=== PATIENT | female | born 1945 | race Caucasian/White ===

== ENCOUNTER 2017-02-23 13:16 | Emergency (ER) | payer MEDICARE, MEDICAID ==
[2017-02-23 13:22] VITALS: BP 141/68
--- NOTE | 2017-02-23 14:21 | ED ---
Lower Extremity - HPI Summary HPI Summary: Patient presents with left inner thigh pain x 4 days after stretching in the shower, denies redness and swelling. She has never had this before. Pain is 7/ 10, constant and worse with standing. Denies lower leg pain, SOB, chest pain or other symptoms. Patient is a smoker, denies recent travel and denies previous DVT. - History of Current Complaint Chief Complaint: EDExtremityLower Stated Complaint: LT LEG PAIN Time Seen by Provider: 02/23/17 13:26 Hx Obtained From: Patient Mechanism Of Injury: Unknown - strained muscle Onset of Pain: Days Onset/Duration: Days Severity Initially: Mild Severity Currently: Mild Pain Intensity: 7 Pain Scale Used: 0-10 Numeric Timing: Constant Location: Is Discrete @ - left inner thigh Character Of Pain: Throbbing, Spasmodic Associated Signs And Symptoms: Positive: Negative Aggravating Factor(s): Ambulation Alleviating Factor(s): Rest Able to Bear Weight: No - Risk Factors Gout Risk Factors: Age Over 40 DVT Risk Factors: Negative Septic Arthritis Risk Factor: Negative - Allergies/Home Medications Allergies/Adverse Reactions: Allergies Allergy/AdvReac Type Severity Reaction Status Date / Time codeine together with Allergy Severe Altered Uncoded 07/21/15 18:42 clonipin Mental Status PMH/Surg Hx/FS Hx/Imm Hx Previously Healthy: Yes Endocrine/Hematology History: Denies: Hx Diabetes, Hx Thyroid Disease Cardiovascular History: Denies: Hx Hypertension, Hx Pacemaker/ICD Respiratory History: Reports: Hx Asthma - COPD, Hx Chronic Obstructive Pulmonary Disease (COPD) GI History: Denies: Hx Ulcer History: Denies: Hx Renal Disease Musculoskeletal History: Denies: Hx Rheumatoid Arthritis, Hx Osteoporosis Neurological History: Denies: Hx Seizures Psychiatric History: Denies: Hx Substance Abuse - Surgical History Surgery Procedure, Year, and Place: Foot surgery for bunions x2, breast cyst removed benign, cataract surgery x2,2 knee surgeries for dislocated knee cap - Immunization History Hx Pertussis Vaccination: No Immunizations Up to Date: Unable to Obtain/Confirm Infectious Disease History: Denies: Hx Clostridium Difficile, Hx Hepatitis, Hx Human Immunodeficiency Virus (HIV), Hx of Known/Suspected MRSA, Hx Shingles, Hx Tuberculosis, Hx Known/ Suspected VRE, Hx Known/Suspected VRSA, History Other Infectious Disease, Traveled Outside the [place] in Last 30 Days - Social History Occupation: Employed Full-time Lives: With Family Alcohol Use: Occasionally Hx Substance Use: No Substance Use Type: Reports: None Hx Tobacco Use: Yes Smoking Status (MU): Heavy Every Day Tobacco Smoker Type: Cigarettes Amount Used/How Often: 1 PPD Have You Smoked in the Last Year: Yes Review of Systems Constitutional: Negative Eyes: Negative Respiratory: Negative Gastrointestinal: Negative Positive: no symptoms reported, see HPI Positive: Myalgia Skin: Negative Neurological: Negative Psychological: Normal All Other Systems Reviewed And Are Negative: Yes Physical Exam Triage Information Reviewed: Yes Vital Signs On Initial Exam: Initial Vitals Temp Pulse Resp BP Pulse Ox 96.8 F 78 17 141/68 96 02/23/17 13:19 02/23/17 13:19 02/23/17 13:19 02/23/17 13:19 02/23/17 13:19 Vital Signs Reviewed: Yes Appearance: Positive: Well-Appearing, Well-Nourished Skin: Positive: Warm, Skin Color Reflects Adequate Perfusion Head/Face: Positive: Normal Head/Face Inspection Eyes: Positive: Normal, DOROTHY, Conjunctiva Clear Neck: Positive: Supple, Nontender, No Lymphadenopathy Respiratory/Lung Sounds: Positive: Clear to Auscultation, Breath Sounds Present Cardiovascular: Positive: Normal, RRR Musculoskeletal: Positive: Pain @ - left inner thigh Neurological: Positive: Sensory/Motor Intact, Alert, Oriented to Person Place, Time, Speech Normal Psychiatric: Positive: Normal AVPU Assessment: Alert Diagnostics - Vital Signs Vital Signs Temp Pulse Resp BP Pulse Ox 02/23/17 13:19 96.8 F 78 17 141/68 96 - Laboratory Lab Statement: Any lab studies that have been ordered have been reviewed, and results considered in the medical decision making process. Lower Extremity Course/Dx - Course Course Of Treatment: Patient with left inner thigh muscle strain after pulling it in shower x 4 days ago. Ibuprofen without relief. Requesting muscle relaxer. Encouraged moist heat, ibuprofen and given flexeril as rx. Medications were reveiwed with patient. Encouarged to follow up with PCP or return to ED for worsening symptoms. Return precautions given. Patient understands and agrees with plan. Ok for discharge. - Diagnoses Differential Diagnosis/HQI/PQRI: Positive: Contusion, Sprain, Strain, Tendonitis Provider Diagnoses: Muscle strain Discharge - Discharge Plan Condition: Stable Disposition: HOME Prescriptions: Cyclobenzaprine TAB* [Flexeril TAB*] 10 mg PO BID PRN #10 tab MDD 2 PRN Reason: Pain Ibuprofen 600 MG #6 TAB PREPAK 600 mg PO TID PRN #30 tab MDD 3 PRN Reason: Pain Patient Education Materials: Muscle Strain (ED) Referrals: Jordon Joseph MD [Primary Care Provider] - Additional Instructions: Ibuprofen 600mg three times daily Flexeril as needed for muscle pain - do not drive with this medication Moist heat to the area several times per day
== END 2017-02-23 14:19 | disposition home or self-care (01) ==
LOC: ED 13:16
DX: S76.912A Strain of unspecified muscles, fascia and tendons at thigh level, left thigh, initial encounter (principal); X58.XXXA Exposure to other specified factors, initial encounter; Y93.E1 Activity, personal bathing and showering; Y92.002 Bathroom of unspecified non-institutional (private) residence as the place of occurrence of the external cause; J44.9 Chronic obstructive pulmonary disease, unspecified; F17.210 Nicotine dependence, cigarettes, uncomplicated
CPT/HCPCS: 99281

== ENCOUNTER 2017-03-09 01:34 | Emergency (ER) | payer MEDICARE, MEDICAID ==
--- NOTE | 2017-03-09 02:42 | ED ---
Edward Perea Alok, scribed for Luis Scherer MD on 03/09/17 at 0216 . Lower Extremity - HPI Summary HPI Summary: 71F presents to the ED with left leg pain with swelling at the knee. Pt states that 3 weeks go she tripped and fell, but has been experiencing pain just today prompting her visit to the ED. Pt states she last took OTC medications 4 hours ago. - History of Current Complaint Chief Complaint: EDExtremityLower Stated Complaint: LEG INJURY Time Seen by Provider: 03/09/17 02:05 Hx Obtained From: Patient Mechanism Of Injury: Fall From A Standing Position Onset of Pain: Days Onset/Duration: Weeks Severity Initially: Moderate Severity Currently: Moderate Pain Intensity: 8 Pain Scale Used: 0-10 Numeric Timing: Constant Location: Is Discrete @ - left leg Associated Signs And Symptoms: Positive: Swelling Aggravating Factor(s): Weight Bearing Alleviating Factor(s): OTC Meds - Allergies/Home Medications Allergies/Adverse Reactions: Allergies Allergy/AdvReac Type Severity Reaction Status Date / Time codeine together with Allergy Severe Altered Uncoded 07/21/15 18:42 clonipin Mental Status PMH/Surg Hx/FS Hx/Imm Hx Endocrine/Hematology History: Denies: Hx Diabetes, Hx Thyroid Disease Cardiovascular History: Denies: Hx Hypertension, Hx Pacemaker/ICD Respiratory History: Reports: Hx Asthma - COPD, Hx Chronic Obstructive Pulmonary Disease (COPD) GI History: Denies: Hx Ulcer History: Denies: Hx Renal Disease Musculoskeletal History: Denies: Hx Rheumatoid Arthritis, Hx Osteoporosis Neurological History: Denies: Hx Seizures Psychiatric History: Denies: Hx Substance Abuse - Surgical History Surgery Procedure, Year, and Place: Foot surgery for bunions x2, breast cyst removed benign, cataract surgery x2,2 knee surgeries for dislocated knee cap Infectious Disease History: Denies: Hx Clostridium Difficile, Hx Hepatitis, Hx Human Immunodeficiency Virus (HIV), Hx of Known/Suspected MRSA, Hx Shingles, Hx Tuberculosis, Hx Known/ Suspected VRE, Hx Known/Suspected VRSA, History Other Infectious Disease, Traveled Outside the [place] in Last 30 Days - Family History Known Family History: Positive: Hypertension - Social History Occupation: Retired Lives: With Family Alcohol Use: Occasionally Hx Substance Use: No Substance Use Type: Reports: None Hx Tobacco Use: Yes Smoking Status (MU): Heavy Every Day Tobacco Smoker Type: Cigarettes Amount Used/How Often: 1 PPD Have You Smoked in the Last Year: Yes Review of Systems Negative: Fever Positive: Edema, Other - left leg pain All Other Systems Reviewed And Are Negative: Yes Physical Exam Triage Information Reviewed: Yes Vital Signs On Initial Exam: Initial Vitals Temp Pulse Resp BP Pulse Ox 97.3 F 73 16 176/88 100 03/09/17 01:39 03/09/17 01:39 03/09/17 01:39 03/09/17 01:39 03/09/17 01:39 Vital Signs Reviewed: Yes Appearance: Positive: Well-Appearing, No Pain Distress Skin: Positive: Warm Eyes: Positive: DOROTHY ENT: Positive: Hearing grossly normal Neck: Positive: Supple Respiratory/Lung Sounds: Positive: Breath Sounds Present Musculoskeletal: Positive: Other - mild swelling lt knee from, no deformity Neurological: Positive: Alert, Oriented to Person Place, Time Psychiatric: Positive: Affect/Mood Appropriate Diagnostics - Vital Signs Vital Signs Temp Pulse Resp BP Pulse Ox 03/09/17 01:39 97.3 F 73 16 176/88 100 - Laboratory Lab Statement: Any lab studies that have been ordered have been reviewed, and results considered in the medical decision making process. - Radiology Lower Extremity XRAY Xray Interpretation: No Acute Changes Radiology Interpretation Completed By: ED Physician - Dr. Scherer Femur XRAY Xray Interpretation: No Acute Changes Radiology Interpretation Completed By: ED Physician - Dr. Scherer Re-Evaluation - Re-Evaluation First Eval Change: Improved - results d/w pt Lower Extremity Course/Dx - Diagnoses Provider Diagnoses: Contusion of leg Discharge - Discharge Plan Condition: Stable Disposition: HOME Patient Education Materials: Leg Pain (ED) Referrals: Jordon Joseph MD [Primary Care Provider] - The documentation as recorded by the Edward joshi Alok accurately reflects the service I personally performed and the decisions made by , Luis Scherer MD.
[2017-03-09 03:50] VITALS: BP 201/77
--- NOTE | 2017-03-09 08:05 | RAD ---
Indication: Left leg pain 3 weeks after a fall Comparison: None. Technique: 4 views of the left femur and 2 views of the left lower leg were obtained. Report: There is a lucent line extending from the left greater trochanter inferiorly along the intertrochanteric line. The remainder of the femur is intact and appropriately aligned. There are advanced degenerative changes of the left knee with obliteration of the joint space, bony remodeling and exuberant marginal osteophyte formation. Calcification extends into the joint capsule. The tibia and fibula are cortically intact and appropriately aligned. Incidentally noted is calcified atherosclerosis throughout the length of the superficial femoral artery and overlying the infrapopliteal arteries. IMPRESSION: 1. Nondisplaced left intertrochanteric fracture. 2. Incidentally noted is calcified atherosclerosis of the femoral-popliteal arteries. Please correlate to signs and symptoms of arterial insufficiency.
== END 2017-03-09 03:49 | disposition home or self-care (01) ==
LOC: ED 01:34
DX: S80.12XA Contusion of left lower leg, initial encounter (principal); M79.605 Pain in left leg; F17.210 Nicotine dependence, cigarettes, uncomplicated; W19.XXXA Unspecified fall, initial encounter; Y93.9 Activity, unspecified; Y92.9 Unspecified place or not applicable
CPT/HCPCS: 99282

== ENCOUNTER 2017-03-13 12:20 | Inpatient (IN) | payer MEDICARE, MEDICAID ==
--- NOTE | 2017-03-13 13:01 | ED ---
Lower Extremity - HPI Summary HPI Summary: Patient presents with left hip pain s/p fall 5 days ago. She also notes to a burn on her anterior thigh for which she has placed ice on for too long which had then burned the skin. She also notes to some swelling, and tightness in the lower leg. Denies previous DVT. Denies blood thinners. She states she has had several issues in the past with her left hip and leg, most recently a pulled muscle in the shower 3 weeks ago. She denies previous fracture in the hip. She takes ibuprofen at home but has not been helping with the pain. Denies numbness, tingling, color or temperature changes in the leg. She was prescribed muscle relaxers 3 weeks ago for the pulled muscle, but has not taken any for this pain. She was seen at Dr. Joseph's office today who sent her here for evaluation of the left non-displaced intertrochanteric fracture. She is ambulating but with pain. Pain is 8/10 and intermittent. - History of Current Complaint Chief Complaint: EDGeneral Stated Complaint: POSS HIP FRACTURE/BURN LT THIGH Time Seen by Provider: 03/13/17 12:27 Hx Obtained From: Patient, Family/Supervisor General Mechanism Of Injury: Direct Blow Onset of Pain: Days Onset/Duration: Days Severity Initially: Moderate Severity Currently: Moderate Pain Intensity: 8 Pain Scale Used: 0-10 Numeric Timing: Intermittent Location: Is Discrete @ - left hip Character Of Pain: Aching Associated Signs And Symptoms: Positive: Negative Aggravating Factor(s): Standing, Ambulation Alleviating Factor(s): Rest Able to Bear Weight: Yes - Risk Factors Gout Risk Factors: Negative DVT Risk Factors: Negative Septic Arthritis Risk Factor: Negative - Allergies/Home Medications Allergies/Adverse Reactions: Allergies Allergy/AdvReac Type Severity Reaction Status Date / Time Clonazepam AdvReac Severe Altered Verified 03/13/17 14:43 Mental Status Codeine AdvReac Severe Altered Verified 03/13/17 14:42 Mental Status codeine together with Allergy Severe Altered Uncoded 07/21/15 18:42 clonipin Mental Status Home Medications: Home Medications Calcium Carbonate [Calcium 600] 1,500 mg PO BID 03/13/17 [History Confirmed 11/24] Gabapentin TAB(NF) [Neurontin 600 mg TAB(NF)] 600 mg PO TID 03/13/17 [History Confirmed 03/13/17] Ibuprofen TAB* [Motrin TAB* 600 MG] 600 mg PO TID PRN MDD 1800 mg 03/13/17 [ History Confirmed 03/13/17] Multivitamins/Minerals TAB* [Theragran/minerals TAB*] 1 tab PO DAILY 03/13/17 [ History Confirmed 03/13/17] Perphenazine (NF) 8 mg PO BEDTIME 03/13/17 [History Confirmed 03/13/17] QUEtiapine TAB* [SEROquel TAB*] 200 mg PO BID 03/13/17 [History Confirmed ] Simvastatin TAB(NF) [Zocor(NF)] 20 mg PO BEDTIME 03/13/17 [History Confirmed 11/24] hydrOXYzine HCL TAB* [Atarax 25 MG TAB*] 25 mg PO BID 03/13/17 [History Confirmed 03/13/17] PMH/Surg Hx/FS Hx/Imm Hx Previously Healthy: Yes Endocrine/Hematology History: Denies: Hx Diabetes, Hx Thyroid Disease Cardiovascular History: Denies: Hx Hypertension, Hx Pacemaker/ICD Respiratory History: Reports: Hx Asthma - COPD, Hx Chronic Obstructive Pulmonary Disease (COPD) GI History: Denies: Hx Ulcer History: Denies: Hx Renal Disease Musculoskeletal History: Denies: Hx Rheumatoid Arthritis, Hx Osteoporosis Neurological History: Denies: Hx Seizures Psychiatric History: Denies: Hx Substance Abuse - Surgical History Surgery Procedure, Year, and Place: Foot surgery for bunions x2, breast cyst removed benign, cataract surgery x2,2 knee surgeries for dislocated knee cap - Immunization History Hx Pertussis Vaccination: No Immunizations Up to Date: Unable to Obtain/Confirm Infectious Disease History: No Infectious Disease History: Denies: Hx Clostridium Difficile, Hx Hepatitis, Hx Human Immunodeficiency Virus (HIV), Hx of Known/Suspected MRSA, Hx Shingles, Hx Tuberculosis, Hx Known/ Suspected VRE, Hx Known/Suspected VRSA, History Other Infectious Disease, Traveled Outside the [place] in Last 30 Days - Family History Known Family History: Positive: Hypertension - Social History Occupation: Employed Full-time Lives: With Family Alcohol Use: Occasionally Hx Substance Use: No Substance Use Type: Reports: None Hx Tobacco Use: Yes Smoking Status (MU): Heavy Every Day Tobacco Smoker Type: Cigarettes Amount Used/How Often: 1 PPD Have You Smoked in the Last Year: Yes Review of Systems Constitutional: Negative Eyes: Negative Cardiovascular: Negative Respiratory: Negative Gastrointestinal: Negative Positive: no symptoms reported, see HPI Positive: Arthralgia, Myalgia Positive: Other - 3x3 second degree burn to the anterior left thigh Neurological: Negative All Other Systems Reviewed And Are Negative: Yes Physical Exam Triage Information Reviewed: Yes Vital Signs On Initial Exam: Initial Vitals Temp Pulse Resp BP Pulse Ox 98.4 F 75 20 120/55 95 03/13/17 12:37 03/13/17 12:37 03/13/17 12:37 03/13/17 12:37 03/13/17 12:37 Vital Signs Reviewed: Yes Appearance: Positive: Well-Appearing, Well-Nourished Skin: Positive: Warm, Skin Color Reflects Adequate Perfusion Head/Face: Positive: Normal Head/Face Inspection Eyes: Positive: Normal, DOROTHY Neck: Positive: Supple, No Lymphadenopathy Respiratory/Lung Sounds: Positive: Clear to Auscultation, Breath Sounds Present Cardiovascular: Positive: Normal, RRR, Pulses are Symmetrical in both Upper and Lower Extremities Musculoskeletal: Positive: Pain @ - 3x3 second degree burn to the anterior left thigh Neurological: Positive: Normal, Speech Normal Psychiatric: Positive: Normal - Jose Coma Scale Best Eye Response: 4 - Spontaneous Best Motor Response: 6 - Obeys Commands Best Verbal Response: 5 - Oriented Diagnostics - Vital Signs Vital Signs Temp Pulse Resp BP Pulse Ox 03/13/17 12:37 98.4 F 75 20 120/55 95 - Laboratory Lab Statement: Any lab studies that have been ordered have been reviewed, and results considered in the medical decision making process. Lower Extremity Course/Dx - Course Course Of Treatment: Spoke with Dr. Mcgee who suggested she be admitted to medical service based on age, smoking history and previous PNA. Ortho will come by likely tomorrow to look at the leg and pin it. She is not on blood thinners. US shows no DVT. CT shows same result as xray. She received 2 and 4 of morphine for pain, following 2 Webb's on arrival. She is comfortable. She sustained a 4x4 area burn to the left anterior thigh from ice which I have debrided, cleaned, placed antibiotic ointment over and covered with a telfa dressing. This will need to be changed daily for 2 days then every other day for 1 week or until eipthelialization occurs. Will then encourage cetaphil lotion to the area. Admitted to [facility]. - Diagnoses Differential Diagnosis/HQI/PQRI: Positive: Fracture (Closed), Sprain, Strain Provider Diagnoses: Intertrochanteric fracture of left hip, Burn of leg, second degree Discharge - Discharge Plan Condition: Stable Disposition: ADMITTED TO [facility]
--- NOTE | 2017-03-13 13:39 | RAD ---
INDICATION: Left lower extremity pain and swelling status post injury. COMPARISON: Comparison is made with a prior study from January 20, 2016. TECHNIQUE: Multiple real-time, color flow and Doppler tracings of the left lower extremity were obtained. FINDINGS: The common femoral, femoral, profunda femoral and popliteal veins all demonstrate normal compressibility, augmentation with compression and phasic response with respiration. The posterior tibial and peroneal veins demonstrate normal compressibility and augmentation with compression. IMPRESSION: NO EVIDENCE FOR DEEP VENOUS THROMBOSIS.
[2017-03-13] MEDS ORDERED: Morphine INJ* 2 MG/ML 1 ML SYRINGE IV ONE (14:05)
--- NOTE | 2017-03-13 14:11 | RAD ---
Indication: LEFT hip pain post fall. Potential fracture. Comparison: March 09, 2017 radiographs. Technique: Noncontrast CT RIGHT hip. Multiplanar reformation. Report: Minimally comminuted intertrochanteric LEFT hip fracture with up to 1.2 cm cephalad displacement of the greater trochanteric fragment. No acetabular fracture evident. Small LEFT hip joint effusion/hemarthrosis. Overlying edema in the subcutaneous tissue plane without visualized loculated soft tissue plane hematoma. Mild osteophytic lipping without significant joint space narrowing. IMPRESSION: LEFT hip intratrochanteric femoral neck fracture.
[2017-03-13] MEDS ORDERED: Albuterol HFA INHALER* 8 gm MDI INH PRN (14:35)
[2017-03-13] MEDS ORDERED: Acetaminophen TAB* 325 MG PO PRN (14:39)
[2017-03-13] MEDS ORDERED: Nicotine Inhaler* 10 MG AMP INH PRN (15:04)
[2017-03-13] MEDS ORDERED: Mouth Piece, Nicotine* 1 EACH CARTRIDGE INH PRN (15:04)
--- NOTE | 2017-03-13 15:12 | RAD ---
Indication: LEFT hip fracture. COPD. Tobacco use. Comparison: July 01, 2012 Technique: Upright AP 1441 hours Report: Indeterminant 3 cm focal density at the medial RIGHT lower lung zone with suggestion of mild surrounding tissue distortion concerning for a potential pulmonary mass. Minimal linear subsegmental atelectasis at the LEFT lung base. Negative for pleural effusion or pneumothorax. Negative for cardiomegaly. Unremarkable central pulmonary vasculature. No rib fractures evident. IMPRESSION: Indeterminant density medial RIGHT lower lung zone concerning for potential pulmonary mass given risk factors for bronchogenic carcinoma. Consider contrast-enhanced CT for further assessment.
--- NOTE | 2017-03-13 15:20 | CONSULT ---
Consult Consult: HPI: Pt was seen sitting up in bed in the ER. She states that she had a fall about 3 weeks ago, she was walking down her hallway when she tripped on some carpet and fell directly onto her left hip. She states that she did not go to the ER after this fall and instead stayed at home. She started to ambulate with a walker after the fall occured. She states that she was seen in the ER 2 weeks later for muscle spasms of the Left thigh and was given some flexeril and sent home. She did not take the muscle relaxer. She followed up with her primary care doctor today where xrays were reviewed and there was a question of a hip fracture. She states that he then sent her to the ER for further workup. She also notes to a burn on her anterior thigh for which she has placed ice on for too long which had then burned the skin. She also notes to some swelling, and tightness in the lower leg. Denies previous DVT. Denies blood thinners. She states she has had several issues in the past with her left hip and leg. She denies previous fracture in the hip. She takes ibuprofen at home but has not been helping with the pain. Denies numbness, tingling, color or temperature changes in the leg. She was seen at Dr. Joseph's office today who sent her here for evaluation of the left non-displaced intertrochanteric fracture. She is ambulating but with pain. Pain is 8/10 and intermittent. Allergies Allergy/AdvReac Type Severity Reaction Status Date / Time codeine together with Allergy Severe Altered Uncoded 07/21/15 18:42 clonipin Mental Status PMH/Surg Hx/FS Hx/Imm Hx Previously Healthy: Yes Endocrine/Hematology History: Denies: Hx Diabetes, Hx Thyroid Disease Cardiovascular History: Denies: Hx Hypertension, Hx Pacemaker/ICD Respiratory History: Reports: Hx Asthma - COPD, Hx Chronic Obstructive Pulmonary Disease (COPD) GI History: Denies: Hx Ulcer History: Denies: Hx Renal Disease Musculoskeletal History: Denies: Hx Rheumatoid Arthritis, Hx Osteoporosis Neurological History: Denies: Hx Seizures Psychiatric History: Denies: Hx Substance Abuse - Surgical History Surgery Procedure, Year, and Place: Foot surgery for bunions x2, breast cyst removed benign, cataract surgery x2,2 knee surgeries for dislocated knee cap - Family History Known Family History: Positive: Hypertension - Social History Occupation: Employed Full-time Lives: With Boyfriend Alcohol Use: Occasionally Hx Substance Use: No Substance Use Type: Reports: None Hx Tobacco Use: Yes Smoking Status (MU): Heavy Every Day Tobacco Smoker Type: Cigarettes Amount Used/How Often: 1 PPD Have You Smoked in the Last Year: Yes Review of Systems Constitutional: Denies any fevers, chills, night sweats Eyes: Negative Cardiovascular: Denies any palpations, chest pain Respiratory: Denies any SOB, labored breathing Gastrointestinal: Denies any n/v/c/d MSK: Admits to Left hip and groin pain. Admits to having a burn on her thigh. Neurological: Negative All Other Systems Reviewed And Are Negative: Yes Physical Exam Initial Vitals Vital Signs Temp 98.4 F 03/13/17 12:37 Pulse 75 03/13/17 12:37 Resp 16 03/13/17 14:09 BP 120/55 03/13/17 12:37 Pulse Ox 95 03/13/17 12:37 Intake & Output 03/12/17 03/13/17 03/13/17 18:59 06:59 18:59 Weight 135 lb Appearance: Well-Appearing, Well-Nourished, NAD Skin: Small 3x3cm 2nd degree burn present on her left thigh, anterior portion at the mid point. Head/Face: Normal Head/Face Inspection Eyes: Normal, DOROTHY Neck: Supple, No Lymphadenopathy Respiratory/Lung Sounds: Clear to Auscultation, Breath Sounds Present Cardiovascular: Normal, RRR, Pulses are Symmetrical in both Upper and Lower Extremities Musculoskeletal: Pain @ - 3x3 second degree burn to the anterior left thigh. No pain to palpation of left hip and groin. Left knee joint appears to have a severe varus deformity Neurological: Positive: Normal, Speech Normal Psychiatric: Positive: Normal Imaging: CT was obtained today. She was found to have a LEFT hip intratrochanteric femoral neck fracture. Assessment: LEFT hip intratrochanteric femoral neck fracture. Plan: 1. Hospitalist Med has been consulted for medical clearance. 2. Plan to bring to OR tomorrow morning for surgical repair 3. Admission per hospitalists
[2017-03-13 16:04] LABS: Hematocrit 39 % (35-47); Hemoglobin 12.8 g/dl (12.0-16.0); Mean Corpuscular HGB Conc 33 g/dl (31-36); Mean Corpuscular Hemoglobin 31 pg (27-31); Mean Corpuscular Volume 94 fL (80-97); Mean Platelet Volume 9 um3 (7.4-10.4); Red Blood Count 4.14 10^6/ul (4.0-5.4); Red Cell Distribution Width 14 % (10.5-15); White Blood Count 6.7 10^3/ul (3.5-10.8)
[2017-03-13 16:20] LABS: Albumin 3.8 g/dL (3.2-5.2); BUN/Creatinine Ratio 27.8 (8-20); Calcium 9.1 mg/dL (8.6-10.3); EGFR African American 92.8 (>60); EGFR Non-African American 72.2 (>60); Globulin 2.4 g/dL (2-4); Potassium 3.5 mmol/L (3.5-5.0); Total Bilirubin 0.3 mg/dL (0.2-1.0); Total Protein 6.2 g/dL (6.4-8.9)
--- NOTE | 2017-03-13 16:30 | PN ---
Hospitalist Progress Note HOSPITALIST ADDENDUM EKG showed NSR at 67bpm with no ST-T changes, no significant changes when compared to prior from 2012. CxR showed right lower lung density concerning for potential pulmonary mass. D/ w Radiology - recommended CT chest with contrast for further evaluation.
[2017-03-13] MEDS ORDERED: Iohexol 300* (CONTRAST) 10 ML SDV IV ONE (16:33)
[2017-03-13] MEDS: Morphine INJ* 2 MG/ML 1 ML SYRINGE IV PRN (17:31)
--- NOTE | 2017-03-13 18:19 | RAD ---
INDICATION: Right lung mass COMPARISON: Chest x-ray March 13, 2017 TECHNIQUE: Axial source images were obtained from the thoracic inlet to the hemidiaphragms. Coronal and sagittal reconstructed images were acquired. 80 mL Omnipaque 300 The visualized neck to include the thyroid appear normal. Chest wall: There are no acute abnormalities of the bony thorax or chest wall. There is no supraclavicular, infraclavicular, or axillary lymphadenopathy. Lungs : There is consolidative change in the medial segment of right middle lobe. There are bronchograms. This is at the level of the abnormality on the chest x-ray and accounts for the plain radiographic finding. There is linear change in both lung bases most consistent with scarring or platelike atelectasis. There are no discrete pulmonary parenchymal nodules. The pulmonary interstitium appears normal. There are no endobronchial lesions. Cardiomediastinal structures: The heart is normal in size. There is no pericardial effusion. There is no evidence of aortic aneurysm or dissection. The pulmonary vessels appear normal. There are mediastinal lymph nodes in the prevascular space and in the precarinal region which measure 8 mm in short axis. There are no enlarged mediastinal lymph nodes based on strict size criteria. The esophagus appears normal. Pleura : There are no pleural-based masses or effusions. Other: There are low-density lesions in the liver measuring up to 2.4 cm. The largest lesion is in the medial segment left hepatic lobe and measures water density. The others have a similar appearance but are too small to fully characterize. IMPRESSION: 1. No discrete pulmonary parenchymal nodule. Consolidative change in right middle lobe accounts for the chest x-ray abnormality. Suggest follow-up chest x-ray. 2. Mildly prominent mediastinal lymph nodes but no mediastinal lymph node enlargement based on size criteria. 3. Low index of suspicion hepatic lesions, likely cysts.
[2017-03-13] MEDS: Cyclobenzaprine TAB* 10 MG PO PRN (19:28)
[2017-03-13] MEDS: Calcium Carbonate TAB* 1250 MG (CALCIUM 500 MG) PO SCH (20:53)
[2017-03-13] MEDS: Atorvastatin* 10 MG TAB PO SCH (20:54)
[2017-03-13] MEDS: Gabapentin CAP(*) 300 MG PO SCH (20:54)
[2017-03-13] MEDS: hydrOXYzine HCL TAB* 25 MG PO SCH (20:56)
[2017-03-13] MEDS: PERPHENAZINE 8 MG PO SCH (20:56)
[2017-03-13] MEDS: QUEtiapine TAB* 100 MG PO SCH (20:57)
--- NOTE | 2017-03-13 20:57 | CONS ---
CONSULTATION REPORT: DATE OF CONSULT: 03/13/17 HISTORY: Pooja is a pleasant 71-year-old woman who has had some chronic pain in her left hip. Thi s was superimposed with more acute pain over the last 24 hours. She denies specific history of traum a but she has a bad left knee and has very unstable gait. She also has chronic smoking and underlyi ng osteopenia. She is admitted through the emergency room with freshly diagnosed intertrochanteric fracture left hip. This was minimally displaced by CT scan. This should be amenable to a dynamic h ip screw fixation. She does have a warm sensate left foot with a thready pulse. The left knee is i n severe varus with really quite significant arthritic changes on radiograph. Also, Pooja has what may be a right mid field pulmonary mass. This will be worked with a contrast CT, but is an independent problem. She is breathing well and has been felt to have ability to have the hip fracture fixed and then secondary workup with the CT of the chest, hopefully while she is in hospital. I reviewed the surgery with the patient and her son who is very helpful, pleasant and seems bright. She understands the surgery, the need to be partial weightbearing after the surgery and most likely some delayed healing due to her serious and heavy smoking history. [id number]/[facility] #: [id number]
[2017-03-13] MEDS ORDERED: Heparin VIAL(*) 5000 UNITS/ML VIAL (FIVE THOUSAND) SUBCUT SCH (22:00)
[2017-03-13] MEDS: NS 0.9% 1000 ML* 1,000 ML IV SCH (23:59)
--- NOTE | 2017-03-14 03:18 | HP ---
CC: Dr. Joseph; Dr. Yassine Mcgee. HISTORY AND PHYSICAL: DATE OF ADMISSION: 03/13/17 TIME OF EVALUATION: 2:10 p.m. PRIMARY CARE PHYSICIAN: Dr. Joseph. CONSULTING ORTHOPEDIST: Dr. Yassine Mcgee. CHIEF COMPLAINT: Left hip pain. HISTORY OF PRESENT ILLNESS: Mrs. Leblanc is a 71-year-old lady with a past medical history of depr ession, anxiety, GERD, COPD, who presents to the emergency room with complaints of left hip pain. Her history goes back to mid February when she sustained a fall at home. She was seen in the emergency room on 02/23/17 with complaints of left hip pain and, at that point, the pain was located to her in ner thigh and it was felt to be muscle strain that happened during a shower. Flexeril was prescribe d as well as moist heat. The patient states she had no relief of the symptoms and actually sustaine d another fall at home. She states that she had knee dislocation surgeries more than 40 years ago a nd has been prone to falls and pain on that leg. She returned to the emergency room on 03/09/17 wit h complaints of pain in the same area. Her x-ray was initially read as no fracture and she was disc harged home to follow up with her PCP, but later the official report of her x-ray revealed a nondisp laced left intertrochanteric fracture. The patient continued to have left hip pain, was seen by her primary care provider today and referred back to the emergency room for further evaluation and pain management. She denies chest pain, palpitations, shortness of breath. She states that before the falls, with th e left hip pain, she was able to ambulate with no issues and no limiting factors. PAST MEDICAL HISTORY: 1. COPD. 2. Tobacco abuse. 3. Depression. 4. Anxiety. 5. GERD. 6. Status post bunionectomy x2. 7. Status post cataract surgery. 8. Status post left knee surgeries x2 for dislocated knee cap. FAMILY HISTORY: Reviewed and noncontributory. SOCIAL HISTORY: The patient is a smoker, a pack a day, since her early 20s. Denies alcohol or drug use. Surrogate decision maker is her son, Severiano Leblanc. Phone number is [phone]. REVIEW OF SYSTEMS: A 14-point review of systems was performed and all the pertinent negative and po sitive findings are in the HPI. PHYSICAL EXAMINATION GENERAL: The patient is a pleasant lady, sitting up in the ED stretcher, in no acute distress, but she just received morphine for pain. VITAL SIGNS: Temperature 98.4, heart rate is 75, respiratory rate is 16, oxygen saturation 95% on r oom air, blood pressure is 120/55. HEENT: Pupils are equal. Moist mucous membranes. CHEST: Breath sounds present bilaterally, with no added sounds. CVS: Normal S1 and S2. Regular rate and rhythm. ABDOMEN: Soft, bowel sounds are present. EXTREMITIES: The patient has externally rotated left leg, with pitting edema up to her thigh. She also has an area of burn on her inferior left thigh. NEUROLOGIC: She is alert, awake, and oriented x3, able to move all 4 extremities. LABORATORY DATA: No labs are available at this time. EKG or chest x-ray were not yet done. Lower extremity Doppler showed no evidence for deep venous thrombosis and CT of the left lower extre mities showed a left hip intertrochanteric femoral neck fracture. ASSESSMENT AND PLAN: Mrs. Leblanc is a 71-year-old lady with a past medical history of chronic obs tructive pulmonary disease, gastroesophageal reflux disease, depression, anxiety, tobacco abuse, abby t presents to the emergency room with complaints of left hip pain; found to have a left hip intertro chanteric femoral neck fracture. 1. Left hip intertrochanteric femoral neck fracture. Management will be as per Orthopedics. A con sultation was already requested with Dr. Mcgee for surgical repair. The patient will receive pain management with morphine. The patient has no complaints of chest pain and had no exercise limitation prior to her falls, with subsequent left hip pain. EKG and chest x-ray are pending at the time of this dictation and they will need to be followed befo re stating the patient is optimized for surgery. At this point, I do not think an echocardiogram or further cardiac workup is indicated, but we will have to follow her EKG, labs, and chest x-ray. 2. Chronic obstructive pulmonary disease: Appears to be stable. We will continue bronchodilators as needed. 3. Tobacco abuse: The patient will receive nicotine supplementation as needed. 4. Depression/anxiety: We will continue fluoxetine, gabapentin, Seroquel, and perphenazine as befo re. 5. Hyperlipidemia: We will continue statins. 6. Deep venous thrombosis prophylaxis: The patient is a very high risk for deep venous thrombosis. She will receive subcutaneous heparin (that will be discontinued prior to surgery) and SCDs. 7. Code status is full. TIME SPENT: Approximately 60 minutes were spent with patient in director case management interview, medical rec ords review, physical examination to complete this admission. More than half of this time was spent [id number] with the patient and coordination of care. [id number]/[facility] #: [id number]
[2017-03-14] MEDS: Morphine INJ* 2 MG/ML 1 ML SYRINGE IV PRN (04:00)
[2017-03-14] MEDS ORDERED: Bupivacaine 0.5% SDV PF* 30 ML VIAL ONE (07:06)
[2017-03-14] MEDS ORDERED: Lidocaine 2% PF * 5 ML VIAL ONE (07:33)
[2017-03-14] MEDS ORDERED: Dexamethasone IV* 4 MG/ML 1 ML (4 MG) ONE (07:33)
[2017-03-14] MEDS ORDERED: fentaNYL* 50 MCG/ML 2 ML VIAL (100 MCG VIAL) ONE ×3 (07:33→10:06)
[2017-03-14] MEDS ORDERED: Ondansetron INJ* 2 MG/ML VIAL ONE (07:33)
[2017-03-14] MEDS ORDERED: Midazolam* 1 MG/ML 5 ML VIAL (5 MG) ONE (07:33)
[2017-03-14] MEDS ORDERED: KETAMINE HCL* 50 MG/ML 10 ML VIAL ONE (07:33)
[2017-03-14] MEDS ORDERED: Ketorolac INJ* 30 MG/ML 1 ML VIAL ONE (07:33)
[2017-03-14] MEDS ORDERED: Propofol* 10 MG/ML 20 ML BTL IV PUSH ONE (07:33)
[2017-03-14] MEDS ORDERED: ceFAZolin 2 GM PREMIX(*) 2 GM/50 ML BAG IVPB ONE (07:53)
[2017-03-14] MEDS ORDERED: Cisatracurium* 2 MG/ML MDV 5 ML ONE (08:05)
[2017-03-14] MEDS ORDERED: EPHEDrine (Pressors)* 50 MG/ML VIAL ONE (08:52)
[2017-03-14] MEDS: Calcium Carbonate TAB* 1250 MG (CALCIUM 500 MG) PO SCH ×2 (08:58→20:54)
[2017-03-14] MEDS: hydrOXYzine HCL TAB* 25 MG PO SCH ×2 (08:59→20:55)
[2017-03-14] MEDS: Gabapentin CAP(*) 300 MG PO SCH ×3 (08:59→20:52)
[2017-03-14] MEDS: Multivitamins/Minerals TAB PO SCH (09:00)
[2017-03-14] MEDS: FLUoxetine CAP* 20 MG PO SCH (09:00)
[2017-03-14] MEDS: QUEtiapine TAB* 100 MG PO SCH ×2 (09:00→20:53)
[2017-03-14] MEDS ORDERED: Levalbuterol 0.63MG/3ML NEB INH PRN (09:02)
[2017-03-14] MEDS ORDERED: Ondansetron INJ* 2 MG/ML VIAL IV PRN (09:02)
[2017-03-14] MEDS ORDERED: Labetalol IV* 5 MG/ML 20 ML VIAL ONE (09:10)
[2017-03-14] MEDS ORDERED: HYDROmorphone* 1 MG/ML 1 ML SYR ONE (10:06)
[2017-03-14] MEDS: fentaNYL* 50 MCG/ML 2 ML VIAL (100 MCG VIAL) IV PRN ×5 (10:07→11:44)
[2017-03-14] MEDS: HYDROmorphone* 1 MG/ML 1 ML SYR IV PRN ×3 (10:15→12:18)
[2017-03-14] MEDS ORDERED: Levalbuterol 1.25MG/0.5ML NEB ONE (12:03)
[2017-03-14] MEDS ORDERED: hydrALAZINE IV* 20 MG/ML VIAL ONE (12:23)
--- NOTE | 2017-03-14 12:32 | PN ---
Subjective Date of Service: 03/14/17 Interval History: Patient seen and examined at bedside in PACU. Denies fever, chills, shortness of breath, chest discomfort, N/V/D. Pt states that her pain is comfortable but she is rating it at a 7/10 and is hypertensive. Family History: Unchanged from Admission Social History: Unchanged from Admission Past Medical History: Unchanged from Admission Objective Active Medications: Acetaminophen (Tylenol Tab*) 650 mg PO Q6H PRN Reason: pain/fever Albuterol (Ventolin Hfa Inhaler*) 1 puff INH Q6HR PRN Reason: SHORTNESS OF BREATH Atorvastatin Calcium (Lipitor*) 10 mg PO BEDTIME NATHANIEL Calcium Carbonate (Calcium Carbonate Tab*) 1,250 mg PO BID NATHANIEL Cyclobenzaprine HCl (Flexeril Tab*) 10 mg PO BID PRN Reason: PAIN Device (Nicotine Mouth Piece*) 1 each INH .USE WITH NICOTROL PRN Reason: CRAVING Fentanyl Citrate (Fentanyl*) 25 mcg IV Q5M PRN Reason: PAIN - MODERATE Stop: 09:23 Fluoxetine HCl (Prozac Cap*) 20 mg PO DAILY NATHANIEL Gabapentin (Neurontin Cap(*)) 600 mg PO TID NATHANIEL Hydromorphone HCl (Dilaudid Iv*) 0.2 mg IV Q10M PRN Reason: PAIN - SEVERE Stop : 03/14/17 09:43 Hydroxyzine HCl (Atarax Tab*) 25 mg PO BID NATHANIEL Sodium Chloride (Ns 0.9% 1000 Ml*) 1,000 mls @ 100 mls/hr IV PER RATE NATHANIEL Morphine Sulfate (Morphine Inj (Syringe)*) 2 mg IV Q4H PRN Reason: PAIN Multivitamins/Minerals (Theragran/Minerals Tab*) 1 tab PO DAILY NATHANIEL Nicotine (Nicotine Inhaler*) 10 mg INH Q2H PRN Reason: CRAVING Perphenazine (Perphenazine (Nf)) 8 mg PO BEDTIME NATHANIEL Quetiapine Fumarate (Seroquel Tab*) 200 mg PO BID [facility] Vital Signs 03/13/17 03/13/17 03/13/17 15:00 16:00 16:10 Temperature Pulse Rate 62 71 64 Respiratory Rate Blood Pressure 127/66 (mmHg) O2 Sat by Pulse 94 95 93 Oximetry 03/13/17 03/13/17 03/13/17 17:31 17:38 18:16 Temperature 97.4 F Pulse Rate 62 Respiratory 18 18 18 Rate Blood Pressure 149/70 (mmHg) O2 Sat by Pulse 95 Oximetry 03/13/17 03/13/17 03/13/17 18:31 19:28 19:31 Temperature 97.6 F Pulse Rate 63 Respiratory 18 18 16 Rate Blood Pressure 168/71 (mmHg) O2 Sat by Pulse 93 Oximetry 03/13/17 03/13/17 03/13/17 19:34 20:54 21:28 Temperature Pulse Rate Respiratory 16 18 18 Rate Blood Pressure (mmHg) O2 Sat by Pulse Oximetry 03/13/17 03/14/17 03/14/17 22:54 00:00 03:22 Temperature 98.1 F 97.8 F Pulse Rate 73 72 Respiratory 16 18 20 Rate Blood Pressure 141/61 146/65 (mmHg) O2 Sat by Pulse 94 95 Oximetry 03/14/17 03/14/17 03/14/17 04:00 05:00 09:45 Temperature 97.9 F Pulse Rate 72 Respiratory 16 16 20 Rate Blood Pressure 171/90 (mmHg) O2 Sat by Pulse 90 Oximetry 03/14/17 03/14/17 03/14/17 09:50 09:55 10:00 Temperature Pulse Rate 66 70 Respiratory 20 20 20 Rate Blood Pressure 198/96 198/99 203/81 (mmHg) O2 Sat by Pulse 96 96 97 Oximetry 03/14/17 03/14/17 03/14/17 10:05 10:07 10:10 Temperature Pulse Rate 67 70 Respiratory 20 20 20 Rate Blood Pressure 198/84 197/78 (mmHg) O2 Sat by Pulse 95 95 Oximetry 03/14/17 03/14/17 03/14/17 10:15 10:23 10:30 Temperature Pulse Rate 67 65 Respiratory 20 20 20 Rate Blood Pressure 189/77 190/70 (mmHg) O2 Sat by Pulse 94 92 Oximetry 03/14/17 03/14/17 03/14/17 10:34 11:00 11:15 Temperature Pulse Rate 59 64 Respiratory 20 16 18 Rate Blood Pressure 161/60 172/70 (mmHg) O2 Sat by Pulse 92 92 Oximetry 03/14/17 03/14/17 03/14/17 11:18 11:30 11:34 Temperature Pulse Rate 61 Respiratory 18 16 18 Rate Blood Pressure 178/67 (mmHg) O2 Sat by Pulse 93 Oximetry 03/14/17 03/14/17 03/14/17 11:44 11:50 12:00 Temperature 97.2 F Pulse Rate 58 63 Respiratory 18 16 16 Rate Blood Pressure 152/62 162/64 (mmHg) O2 Sat by Pulse 92 92 Oximetry 03/14/17 03/14/17 12:10 12:18 Temperature Pulse Rate 63 Respiratory 18 18 Rate Blood Pressure 148/65 (mmHg) O2 Sat by Pulse 94 Oximetry Oxygen Devices in Use Now: Nasal Cannula - 4 L Appearance: NAD, sitting up in bed Eyes: No Scleral Icterus Ears/Nose/Mouth/Throat: Mucous Membranes Moist Respiratory: Symmetrical Chest Expansion and Respiratory Effort, Clear to Auscultation Cardiovascular: NL Sounds; No Murmurs; No JVD, RRR Abdominal: NL Sounds; No Tenderness; No Distention Extremities: No Edema Skin: No Rash or Ulcers, - - Dressing to left hip clean, dry and intact Neurological: Alert and Oriented x 3, NL Muscle Strength and Tone Lines/Tubes/Other Access: Clean, Dry and Intact Peripheral IV - site benign Result Diagrams: 03/13/17 15:55 03/13/17 15:55 Assess/Plan/Problems-Billing Assessment: Ms. Leblanc is a 71 yo female with PMH significant for COPD, tobacco abuse, depression, anxiety and GERD who presented to the hospital with complaints of left hip pain and was found to have a left hip introchanteric femoral neck fracture. - Patient Problems (1) Hip fracture, left Code(s): S72.002A - FRACTURE OF UNSP PART OF NECK OF LEFT FEMUR, INIT SNOMED Code(s): 053194589 Comment: - S/P DHS fixation with Dr. Mcgee, POD - Management per Orthopedics - Pain mangement, bowel regimen and OT/PT - Trend HH (2) HTN (hypertension) Code(s): I10 - ESSENTIAL (PRIMARY) HYPERTENSION SNOMED Code(s): 38497952 Comment: - ? secondary to pain and anxiety postop - Will start hydralazine PRN for SBP > 180 (3) COPD (chronic obstructive pulmonary disease) Code(s): J44.9 - CHRONIC OBSTRUCTIVE PULMONARY DISEASE, UNSPECIFIED SNOMED Code(s): 14462879 Comment: - No signs of exacerbation at this time - Continue PRN nebs/inhalers (4) Tobacco abuse Code(s): Z72.0 - TOBACCO USE SNOMED Code(s): 857672649 Comment: - Nicotine replacement as needed (5) Anxiety and depression Code(s): F41.8 - OTHER SPECIFIED ANXIETY DISORDERS SNOMED Code(s): 694909427 Comment: - Continue fluoxetine, gabapentin, seroquel and perphenazine (6) DVT prophylaxis Code(s): LCK6768 - SNOMED Code(s): 164930617 Comment: - Lovenox per Ortho (7) Full code status Code(s): Z78.9 - OTHER SPECIFIED HEALTH STATUS SNOMED Code(s): 330236344 Status and Disposition: Inpatient.
--- NOTE | 2017-03-14 12:51 | RAD ---
INDICATION: Internal fixation LEFT hip fracture. COMPARISON: March 09, 2017 radiographs. TECHNIQUE: 22.6 seconds fluoroscopy fluoroscopy. FINDINGS: Spot images document placement of a dynamic compression screw across the intratrochanteric femoral neck fracture. IMPRESSION: Procedural fluoroscopy. CPT II Codes: 6045F
[2017-03-14] MEDS: NS 0.9% 1000 ML* 1,000 ML IV SCH ×2 (13:18→23:34)
--- NOTE | 2017-03-14 13:40 | OP ---
OPERATIVE REPORT: DATE OF OPERATION: 03/14/17 DATE OF : 49 SURGEON: Yassine Mcgee MD STAINED GLASS ARTIST: Chantal Aguirre PA-C PRE-OP DIAGNOSIS: Left intertrochanteric hip fracture. POST-OP DIAGNOSIS: Left intertrochanteric hip fracture. OPERATIVE PROCEDURE: Left DHS fixation left hip with 90-mm compression screw and 4- hole side plate . ESTIMATED BLOOD LOSS: 200 cc. DESCRIPTION OF PROCEDURE: The patient was taken to the operating room where general anesthesia admi nistered. We placed her up on the fracture table with a Poole catheter. We performed non-invasive longitudinal distraction on the left lower extremity and then prepped the left hip area. The large shower curtain drape was used. A 6-cm longitudinal incision was made starting at the greater trocha nter along the lateral thigh. She is a thin patient, so we basically cut directly through the fasci a leah and then using electrocautery, just split the vastus lateralis musculare. A guide pin was pl aced in the subtrochanteric area up to the center inferior aspect of the femoral head. This was kip sured to 85 mm and 85-mm lag screw was placed over the short barrel cutter. However, the threaded p ortion of the introducer broke off within the screw to the best of our knowledge. So, we exchanged this for a 90-mm lag screw. The 4-hole side plate 135-degree was placed and fixed with lateral jones ical screws. X-ray intraoperatively showed satisfactory position and alignment in both views. We t hen irrigated thoroughly closing the deep vastus lateralis with a running #1 Vicryl suture, the fasc ia leah with interrupted #1 Vicryl, subcu with 2-0 Vicryl, and jermaine for the skin. A compression dressing applied. [id number]/[facility] #: [id number]
[2017-03-14] MEDS: ceFAZolin 1 GM* X 3 DOSES POST-OP Q8H IVPB SCH ×2 (16:47)
[2017-03-14] MEDS: oxyCODONE/Acetamin 5/325 MG* TAB PO PRN ×2 (16:48→20:54)
[2017-03-14] MEDS: Atorvastatin* 10 MG TAB PO SCH (20:52)
[2017-03-14] MEDS: PERPHENAZINE 8 MG PO SCH (20:54)
[2017-03-15] MEDS: ceFAZolin 1 GM* X 3 DOSES POST-OP Q8H IVPB SCH ×4 (00:16→08:42)
[2017-03-15] MEDS: Cyclobenzaprine TAB* 10 MG PO PRN (00:16)
[2017-03-15] MEDS: oxyCODONE/Acetamin 5/325 MG* TAB PO PRN ×6 (02:06→22:42)
[2017-03-15] MEDS: Morphine INJ* 2 MG/ML 1 ML SYRINGE IV PRN ×2 (03:03→18:42)
[2017-03-15] MEDS: hydrALAZINE IV* 20 MG/ML VIAL IV SLOW PU PRN ×2 (04:06→19:45)
[2017-03-15] MEDS: Enoxaparin(*) 40 MG/0.4 ML SYR SUBCUT SCH (08:43)
[2017-03-15] MEDS: FLUoxetine CAP* 20 MG PO SCH (08:46)
[2017-03-15] MEDS: Multivitamins/Minerals TAB PO SCH (08:46)
[2017-03-15] MEDS: hydrOXYzine HCL TAB* 25 MG PO SCH ×2 (08:46→22:07)
[2017-03-15] MEDS: Gabapentin CAP(*) 300 MG PO SCH ×3 (08:46→22:06)
[2017-03-15] MEDS: QUEtiapine TAB* 100 MG PO SCH ×2 (08:46→22:05)
[2017-03-15] MEDS: Calcium Carbonate TAB* 1250 MG (CALCIUM 500 MG) PO SCH ×2 (08:46→22:06)
[2017-03-15 09:04] LABS: Hematocrit 35 % (35-47); Hemoglobin 11.7 g/dl (12.0-16.0)
--- NOTE | 2017-03-15 12:45 | PN ---
PROGRESS NOTE: DATE OF SERVICE/DICTATION: 03/15/17 HISTORY: Pooja is a day out from her left hip DHS repair. She is sitting up in the bed. She is smiling, alert, and no acute distress. She did take a few pain pills yesterday. She says her pain is mild to moderate today. She has an Wayne wrap on her upper thigh with good compression. I peeked underneath the Wayne wrap and there is no evidence of any accumulation of blood, no swelling noted. She has warm sensate foot, moves her toes well up and down. She is currently on as-needed hydromorphone. She is on Lovenox for DVT prophylaxis. She is finishing her course of cefazolin today. She will be on a regular diet today. She is on supplemental O2 as needed. Her laboratory at this point shows she needs to have an new H and H today, but her INR was 0.92 and yesterday's total protein was slightly low. At this point, Pooja will be mobilized, dangling today possibly up in a chair. She is partial weightbearing left leg with a walker. We will taper her pain medication as tolerated, continue the Lovenox, transitioning to Coumadin, and follow up on a daily basis. [id number]/[facility] #: [id number] [facility]OCKER HOSPITALTiffanie
[2017-03-15] MEDS ORDERED: Magnesium Hydroxide LIQ* 30 ML UDC PO PRN (14:22)
[2017-03-15] MEDS ORDERED: Polyethylene Glycol 3350* 17 GM PACKET PO PRN (14:22)
--- NOTE | 2017-03-15 15:16 | PN ---
Subjective Date of Service: 03/15/17 Interval History: Patient seen and examined at bedside. Pt states that she is feeling well today, pain is controlled. Denies fever, chills, shortness of breath, chest discomfort , N/V/D. Discussed with Pt and Son the chest CT findings and the need for a followup chest xray in the future. Family History: Unchanged from Admission Social History: Unchanged from Admission Past Medical History: Unchanged from Admission Objective Active Medications: Acetaminophen (Tylenol Tab*) 650 mg PO Q6H PRN Reason: pain/fever Albuterol (Ventolin Hfa Inhaler*) 1 puff INH Q6HR PRN Reason: SHORTNESS OF BREATH Atorvastatin Calcium (Lipitor*) 10 mg PO BEDTIME NATHANIEL Calcium Carbonate (Calcium Carbonate Tab*) 1,250 mg PO BID NATHANIEL Cyclobenzaprine HCl (Flexeril Tab*) 10 mg PO BID PRN Reason: PAIN Device (Nicotine Mouth Piece*) 1 each INH .USE WITH NICOTROL PRN Reason: CRAVING Enoxaparin Sodium (Lovenox(*)) 40 mg SUBCUT Q24H NATHANIEL Fluoxetine HCl (Prozac Cap*) 20 mg PO DAILY NATHANIEL Gabapentin (Neurontin Cap(*)) 600 mg PO TID NATHANIEL Hydralazine HCl (Apresoline Iv*) 5 mg IV SLOW PU Q6H PRN Reason: BLOOD PRESSURE Hydroxyzine HCl (Atarax Tab*) 25 mg PO BID NATHANIEL Cefazolin Sodium 1 gm/ Sodium (Chloride) 50 mls @ 200 mls/hr IVPB Q8H NATHANIEL Magnesium Hydroxide (Milk Of Magnesia Liq*) 30 ml PO Q6H PRN Reason: CONSTIPATION Morphine Sulfate (Morphine Inj (Syringe)*) 2 mg IV Q4H PRN Reason: PAIN Multivitamins/Minerals (Theragran/Minerals Tab*) 1 tab PO DAILY NATHANIEL Nicotine (Nicotine Inhaler*) 10 mg INH Q2H PRN Reason: CRAVING Oxycodone/Acetaminophen (Percocet 5/325 Tab*) 1 tab PO Q4H PRN Reason: PAIN Oxycodone/Acetaminophen (Percocet 5/325 Tab*) 2 tab PO Q4H PRN Reason: MORE SEVERE PAIN Perphenazine (Perphenazine (Nf)) 8 mg PO BEDTIME NATHANIEL Reason: Protocol Polyethylene Glycol/Electrolytes (Miralax*) 17 gm PO DAILY PRN Reason: CONSTIPATION Quetiapine Fumarate (Seroquel Tab*) 200 mg PO BID NATHANIEL Vital Signs 03/14/17 03/14/17 03/14/17 15:22 16:00 16:48 Temperature 98.6 F Pulse Rate 72 Respiratory 18 16 Rate Blood Pressure 128/61 (mmHg) O2 Sat by Pulse 96 96 Oximetry 03/14/17 03/14/17 03/14/17 17:13 18:48 19:12 Temperature 98.2 F 99.0 F Pulse Rate 77 77 Respiratory 17 16 16 Rate Blood Pressure 138/59 147/60 (mmHg) O2 Sat by Pulse 95 98 Oximetry 03/14/17 03/14/17 03/15/17 22:52 22:54 00:10 Temperature 98.0 F Pulse Rate 81 Respiratory 16 16 16 Rate Blood Pressure 155/62 (mmHg) O2 Sat by Pulse 88 Oximetry 03/15/17 03/15/17 03/15/17 00:16 00:20 02:06 Temperature Pulse Rate Respiratory 16 16 Rate Blood Pressure (mmHg) O2 Sat by Pulse 94 Oximetry 03/15/17 03/15/17 03/15/17 02:16 03:03 03:53 Temperature 98.2 F Pulse Rate 78 Respiratory 16 16 16 Rate Blood Pressure 180/71 (mmHg) O2 Sat by Pulse 96 Oximetry 03/15/17 03/15/17 03/15/17 04:03 04:06 06:04 Temperature Pulse Rate Respiratory 16 16 16 Rate Blood Pressure 184/76 (mmHg) O2 Sat by Pulse Oximetry 03/15/17 03/15/17 03/15/17 06:49 07:47 08:00 Temperature 98.7 F 98.3 F Pulse Rate 83 81 Respiratory 16 13 16 Rate Blood Pressure 155/57 158/57 (mmHg) O2 Sat by Pulse 93 92 92 Oximetry 03/15/17 03/15/17 03/15/17 10:46 11:44 12:16 Temperature 97.9 F Pulse Rate 74 Respiratory 16 12 16 Rate Blood Pressure 148/55 (mmHg) O2 Sat by Pulse 93 Oximetry Oxygen Devices in Use Now: Nasal Cannula - 4 L Appearance: NAD, sitting up in a chair. Ears/Nose/Mouth/Throat: Mucous Membranes Moist Respiratory: Symmetrical Chest Expansion and Respiratory Effort, Clear to Auscultation Cardiovascular: NL Sounds; No Murmurs; No JVD, RRR Abdominal: NL Sounds; No Tenderness; No Distention Extremities: No Edema Skin: No Rash or Ulcers, - - Dressing to left hip clean, dry and intact Neurological: Alert and Oriented x 3, NL Muscle Strength and Tone Lines/Tubes/Other Access: Clean, Dry and Intact Poole - patent, draining clear yellow urine, Clean, Dry and Intact Peripheral IV - site benign Nutrition: Taking PO's Result Diagrams: 03/15/17 08:50 03/13/17 15:55 Assess/Plan/Problems-Billing Assessment: Ms. Leblanc is a 71 yo female with PMH significant for COPD, tobacco abuse, depression, anxiety and GERD who presented to the hospital with complaints of left hip pain and was found to have a left hip introchanteric femoral neck fracture. - Patient Problems (1) Hip fracture, left Code(s): S72.002A - FRACTURE OF UNSP PART OF NECK OF LEFT FEMUR, INIT SNOMED Code(s): 243403918 Comment: - S/P DHS fixation with Dr. Mcgee, POD #1 - Management per Orthopedics - HH stable, continue to trend - Pain mangement, bowel regimen and OT/PT (2) HTN (hypertension) Code(s): I10 - ESSENTIAL (PRIMARY) HYPERTENSION SNOMED Code(s): 40112616 Comment: - Improved - ? secondary to pain and anxiety - Continue hydralazine PRN for SBP > 180 (3) COPD (chronic obstructive pulmonary disease) Code(s): J44.9 - CHRONIC OBSTRUCTIVE PULMONARY DISEASE, UNSPECIFIED SNOMED Code(s): 45666318 Comment: - No signs of exacerbation at this time - Continue PRN nebs/inhalers (4) Tobacco abuse Code(s): Z72.0 - TOBACCO USE SNOMED Code(s): 600536898 Comment: - Nicotine replacement as needed - Encouraged Pt to stop smoking (5) Anxiety and depression Code(s): F41.8 - OTHER SPECIFIED ANXIETY DISORDERS SNOMED Code(s): 832250655 Comment: - Continue fluoxetine, gabapentin, seroquel and perphenazine (6) DVT prophylaxis Code(s): NDI6829 - SNOMED Code(s): 859904304 Comment: - Lovenox per Ortho (7) Full code status Code(s): Z78.9 - OTHER SPECIFIED HEALTH STATUS SNOMED Code(s): 240163482 Status and Disposition: Inpatient. Discharge when medically stable, may need rehab.
[2017-03-15] MEDS: Atorvastatin* 10 MG TAB PO SCH (22:06)
[2017-03-15] MEDS: PERPHENAZINE 8 MG PO SCH (22:07)
[2017-03-16 07:15] LABS: Hematocrit 35 % (35-47); Hemoglobin 11.9 g/dl (12.0-16.0)
[2017-03-16] MEDS: Enoxaparin(*) 40 MG/0.4 ML SYR SUBCUT SCH (07:52)
[2017-03-16] MEDS: oxyCODONE/Acetamin 5/325 MG* TAB PO PRN (07:52)
--- NOTE | 2017-03-16 08:53 | PN ---
Subjective Date of Service: 03/16/17 Interval History: Patient seen and examined at bedside. She denies fever/chills, CP, SOB, abd pain , n/v. Reports good pain control with current regimen. Patient currently using oxygen but is requesting to have it removed, stating "I don't need it." No other complaints or concerns at this time. Family History: Unchanged from Admission Social History: Unchanged from Admission Past Medical History: Unchanged from Admission Objective Active Medications: Acetaminophen (Tylenol Tab*) 650 mg PO Q6H PRN PRN Reason: pain/fever Albuterol (Ventolin Hfa Inhaler*) 1 puff INH Q6HR PRN PRN Reason: SHORTNESS OF BREATH Atorvastatin Calcium (Lipitor*) 10 mg PO BEDTIME [facility] Last Admin: 03/15/17 22:06 Dose: 10 mg Calcium Carbonate (Calcium Carbonate Tab*) 1,250 mg PO BID [facility] Last Admin: 03/15/17 22:06 Dose: 1,250 mg Cyclobenzaprine HCl (Flexeril Tab*) 10 mg PO BID PRN PRN Reason: PAIN Last Admin: 03/15/17 00:16 Dose: 10 mg Device (Nicotine Mouth Piece*) 1 each INH .USE WITH NICOTROL PRN PRN Reason: CRAVING Last Admin: 03/15/17 18:34 Dose: 1 each Enoxaparin Sodium (Lovenox(*)) 40 mg SUBCUT Q24H [facility] Last Admin: 03/16/17 07:52 Dose: 40 mg Fluoxetine HCl (Prozac Cap*) 20 mg PO DAILY [facility] Last Admin: 03/15/17 08:46 Dose: 20 mg Gabapentin (Neurontin Cap(*)) 600 mg PO TID [facility] Last Admin: 03/15/17 22:06 Dose: 600 mg Hydralazine HCl (Apresoline Iv*) 5 mg IV SLOW PU Q6H PRN PRN Reason: BLOOD PRESSURE Last Admin: 03/15/17 19:45 Dose: 5 mg Hydroxyzine HCl (Atarax Tab*) 25 mg PO BID [facility] Last Admin: 03/15/17 22:07 Dose: Not Given Magnesium Hydroxide (Milk Of Magnesia Liq*) 30 ml PO Q6H PRN PRN Reason: CONSTIPATION Last Admin: 03/15/17 14:55 Dose: 30 ml Morphine Sulfate (Morphine Inj (Syringe)*) 2 mg IV Q4H PRN PRN Reason: PAIN Last Admin: 03/15/17 18:42 Dose: 2 mg Multivitamins/Minerals (Theragran/Minerals Tab*) 1 tab PO DAILY [facility] Last Admin: 03/15/17 08:46 Dose: 1 tab Nicotine (Nicotine Inhaler*) 10 mg INH Q2H PRN PRN Reason: CRAVING Last Admin: 03/15/17 18:34 Dose: 10 mg Oxycodone/Acetaminophen (Percocet 5/325 Tab*) 1 tab PO Q4H PRN PRN Reason: PAIN Last Admin: 03/16/17 07:52 Dose: 1 tab Oxycodone/Acetaminophen (Percocet 5/325 Tab*) 2 tab PO Q4H PRN PRN Reason: MORE SEVERE PAIN Last Admin: 03/15/17 22:42 Dose: 2 tab Perphenazine (Perphenazine (Nf)) 8 mg PO BEDTIME [facility] PRN Reason: Protocol Last Admin: 03/15/17 22:07 Dose: 8 mg Polyethylene Glycol/Electrolytes (Miralax*) 17 gm PO DAILY PRN PRN Reason: CONSTIPATION Quetiapine Fumarate (Seroquel Tab*) 200 mg PO BID [facility] Last Admin: 03/15/17 22:05 Dose: 200 mg Vital Signs 03/15/17 03/15/17 03/15/17 10:16 10:46 11:44 Temperature 97.9 F Pulse Rate 74 Respiratory 16 16 12 Rate Blood Pressure 148/55 (mmHg) O2 Sat by Pulse 93 Oximetry 03/15/17 03/15/17 03/15/17 12:16 13:34 13:35 Temperature Pulse Rate Respiratory 16 16 16 Rate Blood Pressure (mmHg) O2 Sat by Pulse Oximetry 03/15/17 03/15/17 03/15/17 15:06 15:34 15:35 Temperature 98.1 F Pulse Rate 76 Respiratory 22 20 20 Rate Blood Pressure 146/72 (mmHg) O2 Sat by Pulse 93 Oximetry 03/15/17 03/15/17 03/15/17 18:30 18:42 19:34 Temperature 98.0 F Pulse Rate 78 Respiratory 20 20 16 Rate Blood Pressure 195/71 (mmHg) O2 Sat by Pulse 94 Oximetry 08/06/17 08/06/17 08/06/17 19:42 19:54 20:12 Temperature Pulse Rate 75 Respiratory 16 16 Rate Blood Pressure 173/65 (mmHg) O2 Sat by Pulse Oximetry 03/15/17 03/15/17 03/15/17 20:30 22:06 22:42 Temperature Pulse Rate Respiratory 16 16 16 Rate Blood Pressure (mmHg) O2 Sat by Pulse Oximetry 03/15/17 03/16/17 03/16/17 23:38 00:06 00:42 Temperature 98.2 F Pulse Rate 73 Respiratory 14 14 14 Rate Blood Pressure 127/50 (mmHg) O2 Sat by Pulse 95 Oximetry 03/16/17 03/16/17 03/16/17 02:04 03:26 07:40 Temperature 97.1 F Pulse Rate 67 Respiratory 16 14 Rate Blood Pressure 154/60 (mmHg) O2 Sat by Pulse 92 98 Oximetry 03/16/17 03/16/17 07:49 07:52 Temperature 98.0 F Pulse Rate 75 Respiratory 14 14 Rate Blood Pressure 172/71 (mmHg) O2 Sat by Pulse 94 Oximetry Oxygen Devices in Use Now: Nasal Cannula - 4 L Appearance: Older female, OOB to chair, in NAD Eyes: No Scleral Icterus Ears/Nose/Mouth/Throat: Clear Oropharnyx, Mucous Membranes Moist Neck: NL Appearance and Movements; NL JVP Respiratory: Symmetrical Chest Expansion and Respiratory Effort, Clear to Auscultation Cardiovascular: NL Sounds; No Murmurs; No JVD, RRR Abdominal: NL Sounds; No Tenderness; No Distention Extremities: No Edema, - - left hip dressing cdi Neurological: Alert and Oriented x 3, NL Muscle Strength and Tone Lines/Tubes/Other Access: Clean, Dry and Intact Peripheral IV Nutrition: Taking PO's Result Diagrams: 03/16/17 06:31 03/13/17 15:55 Assess/Plan/Problems-Billing Assessment: Ms. Leblanc is a 71 yo female with PMH significant for COPD, tobacco abuse, depression, anxiety and GERD who presented to the hospital with complaints of left hip pain and was found to have a left hip introchanteric femoral neck fracture. - Patient Problems (1) Hip fracture, left Code(s): S72.002A - FRACTURE OF UNSP PART OF NECK OF LEFT FEMUR, INIT Comment : - S/P DHS fixation with Dr. Mcgee, POD #2 - Management per Orthopedics - HH stable, continue to trend - Pain mangement, bowel regimen and OT/PT (2) HTN (hypertension) Code(s): I10 - ESSENTIAL (PRIMARY) HYPERTENSION Comment: - Improved - ? secondary to pain and anxiety - Continue hydralazine PRN for SBP > 180 (3) COPD (chronic obstructive pulmonary disease) Code(s): J44.9 - CHRONIC OBSTRUCTIVE PULMONARY DISEASE, UNSPECIFIED Comment: - No signs of exacerbation at this time - Continue PRN nebs/inhalers (4) Tobacco abuse Code(s): Z72.0 - TOBACCO USE Comment: - Nicotine replacement as needed - Encouraged Pt to stop smoking (5) Anxiety and depression Code(s): F41.8 - OTHER SPECIFIED ANXIETY DISORDERS Comment: - Continue fluoxetine, gabapentin, seroquel and perphenazine (6) DVT prophylaxis Code(s): BCC2444 - Comment: - Lovenox per Ortho (7) Full code status Code(s): Z78.9 - OTHER SPECIFIED HEALTH STATUS Status and Disposition: Inpatient. Discharge to [facility].
[2017-03-16] MEDS: FLUoxetine CAP* 20 MG PO SCH (09:19)
[2017-03-16] MEDS: Gabapentin CAP(*) 300 MG PO SCH (09:19)
[2017-03-16] MEDS: Multivitamins/Minerals TAB PO SCH (09:19)
[2017-03-16] MEDS: Calcium Carbonate TAB* 1250 MG (CALCIUM 500 MG) PO SCH (09:20)
[2017-03-16] MEDS: QUEtiapine TAB* 100 MG PO SCH (09:20)
[2017-03-16] MEDS: hydrOXYzine HCL TAB* 25 MG PO SCH (09:20)
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
[2017-03-16 11:51] VITALS: BP 144/62
--- NOTE | 2017-03-16 11:58 | PN ---
PROGRESS NOTE: DATE OF SERVICE: 03/16/17 HISTORY AND HOSPITAL COURSE: Ms. Leblanc is in her second day postoperative for left hip intertrochanteric fracture fixation. She is up in the cardiac chair today, dosing a bit. She is quite comfortable except for when she moves, she has some mild left hip pain. She is afebrile today. H and H is stable. She will need to do dressing tomorrow. She is on Lovenox. Plan for Pooja is up with the walker today and PT and a possible PMRU transfer in a day or so pending their availability. [id number]/CPS #: [id number] MTDD
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
== END 2017-03-16 12:15 | DRG 482 ==
LOC: ED 12:20 → SSU 14:32
PROVIDERS: ADMIT Internal Medicine; ATTEND Internal Medicine
PROC: 0QH634Z Insertion of Internal Fixation Device into Right Upper Femur, Percutaneous Approach (ICD-10-PCS; principal; 2017-03-14 08:00)
DX: S72.142A Displaced intertrochanteric fracture of left femur, initial encounter for closed fracture (principal); J44.9 Chronic obstructive pulmonary disease, unspecified; I10 Essential (primary) hypertension; W18.30XA Fall on same level, unspecified, initial encounter; F17.210 Nicotine dependence, cigarettes, uncomplicated; F41.9 Anxiety disorder, unspecified; F32.9 Major depressive disorder, single episode, unspecified; M85.80 Other specified disorders of bone density and structure, unspecified site; K21.9 Gastro-esophageal reflux disease without esophagitis; T24.012A Burn of unspecified degree of left thigh, initial encounter; W93.8XXA Exposure to other excessive cold of man-made origin, initial encounter; Y92.009 Unspecified place in unspecified non-institutional (private) residence as the place of occurrence of the external cause
CPT/HCPCS: 36415; 71010; 71260; 80053; 85014; 85018; 85025; 85610; 93005; 94760; 99406; A9270-GY; C1713; C1776; J0360; J0690; J1100; J1170; J1644; J1650; J1885; J2250; J2270; J2405; J2704; J3010; Q9967

== ENCOUNTER 2017-03-16 11:23 | Inpatient (IN) | payer MEDICARE, MEDICAID ==
[2017-03-16] MEDS ORDERED: Bisacodyl SUPP* 10 MG SUPP PR PRN (13:19)
[2017-03-16] MEDS ORDERED: Polyethylene Glycol 3350* 17 GM PACKET PO PRN (13:31)
[2017-03-16] MEDS: Gabapentin CAP(*) 300 MG PO SCH ×2 (14:15→21:55)
[2017-03-16] MEDS: oxyCODONE/Acetamin 5/325 MG* TAB PO PRN ×3 (14:15→22:19)
[2017-03-16] MEDS: Acetaminophen TAB* 325 MG PO PRN (15:49)
[2017-03-16] MEDS ORDERED: Albuterol HFA INHALER* 8 gm MDI INH PRN (16:25)
[2017-03-16] MEDS: Atorvastatin* 10 MG TAB PO SCH (17:35)
[2017-03-16] MEDS ORDERED: Albuterol 2.5 MG/3 ML NEB.SOL* (0.083%) INH PRN (17:44)
[2017-03-16] MEDS: Nicotine Inhaler* 10 MG AMP INH PRN (19:15)
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
[2017-03-16] MEDS: Perphenazine TAB* 2 MG PO SCH (21:53)
[2017-03-16] MEDS: Calcium Carbonate TAB* 1250 MG (CALCIUM 500 MG) PO SCH (21:56)
[2017-03-16] MEDS: QUEtiapine TAB* 100 MG PO SCH (21:56)
[2017-03-16] MEDS: hydrOXYzine HCL TAB* 25 MG PO SCH (22:02)
[2017-03-16] MEDS: Senna TAB PO SCH (22:14)
[2017-03-16] MEDS: Docusate CAP* 100 MG PO SCH (22:14)
[2017-03-17] MEDS: oxyCODONE/Acetamin 5/325 MG* TAB PO PRN ×3 (04:04→18:37)
[2017-03-17] MEDS: Calcium Carbonate TAB* 1250 MG (CALCIUM 500 MG) PO SCH ×2 (07:53→20:47)
[2017-03-17] MEDS: FLUoxetine CAP* 20 MG PO SCH (07:54)
[2017-03-17] MEDS: Multivitamins/Minerals TAB PO SCH (07:54)
[2017-03-17] MEDS: QUEtiapine TAB* 100 MG PO SCH ×2 (07:54→20:47)
[2017-03-17] MEDS: Gabapentin CAP(*) 300 MG PO SCH ×3 (07:54→20:47)
[2017-03-17] MEDS: hydrOXYzine HCL TAB* 25 MG PO SCH ×2 (07:55→20:47)
[2017-03-17] MEDS: Docusate CAP* 100 MG PO SCH ×2 (07:55→20:47)
[2017-03-17] MEDS: Enoxaparin(*) 40 MG/0.4 ML SYR SUBCUT SCH (07:56)
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
[2017-03-17] MEDS: Atorvastatin* 10 MG TAB PO SCH (16:55)
[2017-03-17] MEDS: Perphenazine TAB* 2 MG PO SCH (20:46)
[2017-03-17] MEDS: Senna TAB PO SCH (20:47)
[2017-03-18 05:30] LABS: Hematocrit 35 % (35-47); Hemoglobin 11.7 g/dl (12.0-16.0); Mean Corpuscular HGB Conc 34 g/dl (31-36); Mean Corpuscular Hemoglobin 31 pg (27-31); Mean Corpuscular Volume 93 fL (80-97); Mean Platelet Volume 8 um3 (7.4-10.4); Red Blood Count 3.72 10^6/ul (4.0-5.4); Red Cell Distribution Width 14 % (10.5-15); White Blood Count 6.1 10^3/ul (3.5-10.8)
[2017-03-18 06:01] LABS: Albumin 3.2 g/dL (3.2-5.2); BUN/Creatinine Ratio 19.1 (8-20); EGFR African American 110.3 (>60); EGFR Non-African American 85.8 (>60); Globulin 2.7 g/dL (2-4); Potassium 3.5 mmol/L (3.5-5.0); Total Bilirubin 0.4 mg/dL (0.2-1.0); Total Protein 5.9 g/dL (6.4-8.9)
[2017-03-18] MEDS: Enoxaparin(*) 40 MG/0.4 ML SYR SUBCUT SCH (08:14)
[2017-03-18] MEDS: Multivitamins/Minerals TAB PO SCH (08:16)
[2017-03-18] MEDS: Gabapentin CAP(*) 300 MG PO SCH ×3 (08:16→21:42)
[2017-03-18] MEDS: FLUoxetine CAP* 20 MG PO SCH (08:16)
[2017-03-18] MEDS: Docusate CAP* 100 MG PO SCH ×2 (08:16→21:48)
[2017-03-18] MEDS: Calcium Carbonate TAB* 1250 MG (CALCIUM 500 MG) PO SCH ×2 (08:16→21:43)
[2017-03-18] MEDS: QUEtiapine TAB* 100 MG PO SCH ×2 (08:17→21:44)
[2017-03-18] MEDS: hydrOXYzine HCL TAB* 25 MG PO SCH ×2 (09:19→21:44)
[2017-03-18] MEDS: oxyCODONE/Acetamin 5/325 MG* TAB PO PRN ×3 (11:12→21:49)
[2017-03-18] MEDS: Atorvastatin* 10 MG TAB PO SCH (16:15)
[2017-03-18] MEDS: Nicotine Inhaler* 10 MG AMP INH PRN ×2 (16:58→21:46)
[2017-03-18] MEDS: Perphenazine TAB* 2 MG PO SCH (21:43)
[2017-03-18] MEDS: Senna TAB PO SCH (21:45)
[2017-03-19] MEDS: Nicotine Inhaler* 10 MG AMP INH PRN ×4 (06:49→18:55)
[2017-03-19] MEDS: Multivitamins/Minerals TAB PO SCH (08:00)
[2017-03-19] MEDS: Calcium Carbonate TAB* 1250 MG (CALCIUM 500 MG) PO SCH ×2 (08:00→20:00)
[2017-03-19] MEDS: QUEtiapine TAB* 100 MG PO SCH ×2 (08:01→20:02)
[2017-03-19] MEDS: hydrOXYzine HCL TAB* 25 MG PO SCH ×2 (08:01→20:03)
[2017-03-19] MEDS: Gabapentin CAP(*) 300 MG PO SCH ×3 (08:01→20:01)
[2017-03-19] MEDS: Docusate CAP* 100 MG PO SCH ×2 (08:01→20:01)
[2017-03-19] MEDS: FLUoxetine CAP* 20 MG PO SCH (08:01)
[2017-03-19] MEDS: Enoxaparin(*) 40 MG/0.4 ML SYR SUBCUT SCH (08:03)
[2017-03-19] MEDS: Acetaminophen TAB* 325 MG PO PRN (13:49)
[2017-03-19] MEDS: oxyCODONE/Acetamin 5/325 MG* TAB PO PRN (15:31)
[2017-03-19] MEDS: Atorvastatin* 10 MG TAB PO SCH (16:51)
[2017-03-19] MEDS: Senna TAB PO SCH (20:03)
[2017-03-19] MEDS: Perphenazine TAB* 2 MG PO SCH (20:04)
[2017-03-20] MEDS: oxyCODONE/Acetamin 5/325 MG* TAB PO PRN ×3 (03:06→21:17)
[2017-03-20] MEDS: Nicotine Inhaler* 10 MG AMP INH PRN ×4 (06:35→19:16)
[2017-03-20] MEDS: Calcium Carbonate TAB* 1250 MG (CALCIUM 500 MG) PO SCH ×2 (08:03→20:25)
[2017-03-20] MEDS: Multivitamins/Minerals TAB PO SCH (08:04)
[2017-03-20] MEDS: QUEtiapine TAB* 100 MG PO SCH ×2 (08:04→20:27)
[2017-03-20] MEDS: Enoxaparin(*) 40 MG/0.4 ML SYR SUBCUT SCH (08:04)
[2017-03-20] MEDS: FLUoxetine CAP* 20 MG PO SCH (08:04)
[2017-03-20] MEDS: hydrOXYzine HCL TAB* 25 MG PO SCH ×2 (08:04→20:27)
[2017-03-20] MEDS: Docusate CAP* 100 MG PO SCH ×2 (08:04→20:26)
[2017-03-20] MEDS: Gabapentin CAP(*) 300 MG PO SCH ×3 (08:04→20:26)
[2017-03-20] MEDS: Atorvastatin* 10 MG TAB PO SCH (17:13)
[2017-03-20] MEDS: Acetaminophen TAB* 325 MG PO PRN (19:15)
[2017-03-20] MEDS: Perphenazine TAB* 2 MG PO SCH (20:27)
[2017-03-20] MEDS: Senna TAB PO SCH (20:27)
[2017-03-21] MEDS: Nicotine Inhaler* 10 MG AMP INH PRN ×4 (04:30→22:20)
[2017-03-21] MEDS: Acetaminophen TAB* 325 MG PO PRN (08:15)
[2017-03-21] MEDS: Multivitamins/Minerals TAB PO SCH (08:15)
[2017-03-21] MEDS: Docusate CAP* 100 MG PO SCH ×2 (08:15→18:59)
[2017-03-21] MEDS: Gabapentin CAP(*) 300 MG PO SCH ×3 (08:16→18:59)
[2017-03-21] MEDS: Calcium Carbonate TAB* 1250 MG (CALCIUM 500 MG) PO SCH ×2 (08:16→19:00)
[2017-03-21] MEDS: FLUoxetine CAP* 20 MG PO SCH (08:16)
[2017-03-21] MEDS: QUEtiapine TAB* 100 MG PO SCH ×2 (08:16→19:00)
[2017-03-21] MEDS: hydrOXYzine HCL TAB* 25 MG PO SCH ×2 (08:17→19:01)
[2017-03-21] MEDS: Enoxaparin(*) 40 MG/0.4 ML SYR SUBCUT SCH (08:18)
[2017-03-21] MEDS: oxyCODONE/Acetamin 5/325 MG* TAB PO PRN ×3 (11:16→22:18)
[2017-03-21] MEDS: Atorvastatin* 10 MG TAB PO SCH (16:00)
[2017-03-21] MEDS: Senna TAB PO SCH (18:59)
[2017-03-21] MEDS: Perphenazine TAB* 2 MG PO SCH (19:00)
[2017-03-22] MEDS: Nicotine Inhaler* 10 MG AMP INH PRN ×2 (05:44→17:38)
[2017-03-22] MEDS: FLUoxetine CAP* 20 MG PO SCH (09:20)
[2017-03-22] MEDS: Calcium Carbonate TAB* 1250 MG (CALCIUM 500 MG) PO SCH ×2 (09:20→19:03)
[2017-03-22] MEDS: QUEtiapine TAB* 100 MG PO SCH ×2 (09:20→19:00)
[2017-03-22] MEDS: hydrOXYzine HCL TAB* 25 MG PO SCH ×2 (09:20→19:00)
[2017-03-22] MEDS: Docusate CAP* 100 MG PO SCH ×2 (09:20→19:00)
[2017-03-22] MEDS: Multivitamins/Minerals TAB PO SCH (09:20)
[2017-03-22] MEDS: Gabapentin CAP(*) 300 MG PO SCH ×3 (09:21→19:00)
[2017-03-22] MEDS: Enoxaparin(*) 40 MG/0.4 ML SYR SUBCUT SCH (09:23)
[2017-03-22] MEDS: Acetaminophen TAB* 325 MG PO PRN (09:27)
[2017-03-22] MEDS: Atorvastatin* 10 MG TAB PO SCH (16:40)
[2017-03-22] MEDS: Senna TAB PO SCH (19:00)
[2017-03-22] MEDS: Perphenazine TAB* 2 MG PO SCH (19:00)
[2017-03-22] MEDS: oxyCODONE/Acetamin 5/325 MG* TAB PO PRN (20:51)
[2017-03-23] MEDS ORDERED: Mouth Piece, Nicotine* 1 EACH CARTRIDGE ONE (06:07)
[2017-03-23] MEDS: Nicotine Inhaler* 10 MG AMP INH PRN ×3 (06:08→20:44)
[2017-03-23] MEDS: Docusate CAP* 100 MG PO SCH ×2 (09:20→20:14)
[2017-03-23] MEDS: Gabapentin CAP(*) 300 MG PO SCH ×3 (09:20→20:14)
[2017-03-23] MEDS: Enoxaparin(*) 40 MG/0.4 ML SYR SUBCUT SCH (09:20)
[2017-03-23] MEDS: Multivitamins/Minerals TAB PO SCH (09:20)
[2017-03-23] MEDS: FLUoxetine CAP* 20 MG PO SCH (09:20)
[2017-03-23] MEDS: Calcium Carbonate TAB* 1250 MG (CALCIUM 500 MG) PO SCH ×2 (09:21→20:13)
[2017-03-23] MEDS: hydrOXYzine HCL TAB* 25 MG PO SCH ×2 (09:21→20:15)
[2017-03-23] MEDS: QUEtiapine TAB* 100 MG PO SCH ×2 (09:21→20:14)
[2017-03-23] MEDS: oxyCODONE/Acetamin 5/325 MG* TAB PO PRN (16:00)
[2017-03-23] MEDS: Atorvastatin* 10 MG TAB PO SCH (17:21)
[2017-03-23] MEDS: Senna TAB PO SCH (20:14)
[2017-03-23] MEDS: Perphenazine TAB* 2 MG PO SCH (20:16)
[2017-03-24] MEDS: oxyCODONE/Acetamin 5/325 MG* TAB PO PRN (05:38)
[2017-03-24] MEDS: Nicotine Inhaler* 10 MG AMP INH PRN ×3 (05:39→17:27)
[2017-03-24] MEDS: Multivitamins/Minerals TAB PO SCH (08:33)
[2017-03-24] MEDS: Gabapentin CAP(*) 300 MG PO SCH ×3 (08:34→20:01)
[2017-03-24] MEDS: Docusate CAP* 100 MG PO SCH ×2 (08:34→20:01)
[2017-03-24] MEDS: hydrOXYzine HCL TAB* 25 MG PO SCH ×2 (08:34→20:06)
[2017-03-24] MEDS: FLUoxetine CAP* 20 MG PO SCH (08:35)
[2017-03-24] MEDS: QUEtiapine TAB* 100 MG PO SCH ×2 (08:35→20:02)
[2017-03-24] MEDS: Enoxaparin(*) 40 MG/0.4 ML SYR SUBCUT SCH ×2 (08:36→09:56)
[2017-03-24] MEDS: Calcium Carbonate TAB* 1250 MG (CALCIUM 500 MG) PO SCH ×2 (09:56→20:00)
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
[2017-03-24] MEDS: Atorvastatin* 10 MG TAB PO SCH (16:39)
[2017-03-24] MEDS: Senna TAB PO SCH (20:01)
[2017-03-24] MEDS: Perphenazine TAB* 2 MG PO SCH (20:02)
[2017-03-25] MEDS: Nicotine Inhaler* 10 MG AMP INH PRN ×3 (05:07→19:51)
[2017-03-25] MEDS: oxyCODONE/Acetamin 5/325 MG* TAB PO PRN ×3 (05:18→19:53)
[2017-03-25 07:57] LABS: Hematocrit 36 % (35-47); Mean Corpuscular HGB Conc 33 g/dl (31-36); Mean Corpuscular Hemoglobin 31 pg (27-31); Mean Corpuscular Volume 92 fL (80-97); Mean Platelet Volume 8 um3 (7.4-10.4); Red Blood Count 3.93 10^6/ul (4.0-5.4); Red Cell Distribution Width 14 % (10.5-15); White Blood Count 7.4 10^3/ul (3.5-10.8)
[2017-03-25 08:00] LABS: Albumin 3.9 g/dL (3.2-5.2); BUN/Creatinine Ratio 23.3 (8-20); EGFR African American 79.8 (>60); EGFR Non-African American 62.1 (>60); Globulin 2.8 g/dL (2-4); Potassium 4.1 mmol/L (3.5-5.0); Total Bilirubin 0.3 mg/dL (0.2-1.0); Total Protein 6.7 g/dL (6.4-8.9)
[2017-03-25] MEDS: Multivitamins/Minerals TAB PO SCH (08:24)
[2017-03-25] MEDS: Gabapentin CAP(*) 300 MG PO SCH ×3 (08:24→19:55)
[2017-03-25] MEDS: hydrOXYzine HCL TAB* 25 MG PO SCH ×2 (08:24→19:56)
[2017-03-25] MEDS: Calcium Carbonate TAB* 1250 MG (CALCIUM 500 MG) PO SCH ×2 (08:25→19:55)
[2017-03-25] MEDS: Enoxaparin(*) 40 MG/0.4 ML SYR SUBCUT SCH (08:25)
[2017-03-25] MEDS: Docusate CAP* 100 MG PO SCH ×2 (08:25→19:56)
[2017-03-25] MEDS: QUEtiapine TAB* 100 MG PO SCH ×2 (08:25→19:54)
[2017-03-25] MEDS: FLUoxetine CAP* 20 MG PO SCH (08:25)
[2017-03-25] MEDS: Atorvastatin* 10 MG TAB PO SCH (17:14)
[2017-03-25] MEDS: Senna TAB PO SCH (19:56)
[2017-03-25] MEDS: Perphenazine TAB* 2 MG PO SCH (19:56)
[2017-03-26] MEDS: Enoxaparin(*) 40 MG/0.4 ML SYR SUBCUT SCH (08:13)
[2017-03-26] MEDS: hydrOXYzine HCL TAB* 25 MG PO SCH ×2 (08:56→19:11)
[2017-03-26] MEDS: Calcium Carbonate TAB* 1250 MG (CALCIUM 500 MG) PO SCH ×2 (08:56→19:10)
[2017-03-26] MEDS: Gabapentin CAP(*) 300 MG PO SCH ×3 (08:56→19:11)
[2017-03-26] MEDS: Multivitamins/Minerals TAB PO SCH (08:57)
[2017-03-26] MEDS: Docusate CAP* 100 MG PO SCH ×2 (08:57→19:10)
[2017-03-26] MEDS: FLUoxetine CAP* 20 MG PO SCH (08:57)
[2017-03-26] MEDS: QUEtiapine TAB* 100 MG PO SCH ×2 (08:57→19:11)
[2017-03-26] MEDS: Nicotine Inhaler* 10 MG AMP INH PRN ×2 (09:10→16:00)
[2017-03-26] MEDS: Atorvastatin* 10 MG TAB PO SCH (15:46)
[2017-03-26] MEDS: oxyCODONE/Acetamin 5/325 MG* TAB PO PRN ×2 (17:09→23:32)
[2017-03-26] MEDS: Senna TAB PO SCH (19:09)
[2017-03-26] MEDS: Perphenazine TAB* 2 MG PO SCH (19:11)
[2017-03-27] MEDS: Nicotine Inhaler* 10 MG AMP INH PRN (05:36)
[2017-03-27] MEDS: Enoxaparin(*) 40 MG/0.4 ML SYR SUBCUT SCH (08:10)
[2017-03-27] MEDS: oxyCODONE/Acetamin 5/325 MG* TAB PO PRN ×2 (08:13→15:34)
[2017-03-27] MEDS: FLUoxetine CAP* 20 MG PO SCH (08:29)
[2017-03-27] MEDS: Gabapentin CAP(*) 300 MG PO SCH ×2 (08:29→13:58)
[2017-03-27] MEDS: Calcium Carbonate TAB* 1250 MG (CALCIUM 500 MG) PO SCH (08:29)
[2017-03-27] MEDS: QUEtiapine TAB* 100 MG PO SCH (08:29)
[2017-03-27] MEDS: Multivitamins/Minerals TAB PO SCH (08:29)
[2017-03-27] MEDS: Docusate CAP* 100 MG PO SCH (08:29)
[2017-03-27 11:04] VITALS: BP 130/62
--- NOTE | 2017-03-30 07:46 | DS ---
CC: Dr. Yassine Mcgee; Dr. Jordon Joseph * DISCHARGE SUMMARY: DATE OF ADMISSION: 03/16/17 DATE OF DISCHARGE: 03/27/17 DISCHARGE DIAGNOSES: 1. Left hip fracture. 2. Chronic obstructive pulmonary disease. 3. Depression. 4. Gastroesophageal reflux disease. 5. Nicotine addiction. HISTORY OF ILLNESS AND HOSPITAL COURSE: For complete history of the events leading up to her rehab state, please see the history and physical dictated by me on 03/16/17. While on the rehab unit, the patient initially was unable to void. Bladder scan showed greater than 900 cc. A Poole catheter was inserted and 1200 cc of urine came out. The patient was also noted on admission to have an ice burn over the surface of her left thigh. Apparently, when she initially got hurt and was told she had not fractured the leg and to ice it, she had put dry ice over her left thigh and had fallen asleep with the dry ice on it. As a result, she developed a 6 cm x 8 cm burn over the surface of her left thigh. This was treated with Tegaderm. It looked clean throughout her rehab stay. The patient otherwise was medically stable. Her Poole catheter was removed on 03/21 and she was able to void without further difficulties. The patient was seen by both Physical and Occupational Therapy while on the rehab unit. She made good gains with both disciplines. With physical therapy at the time of admission, the patient required moderate amount of assistance of 2 people to do a transfer. She was min assist of 2 people to ambulate 5 feet. With occupational therapy, she was mod assist of 2 people to do a toilet transfer and max assist of 2 people into toileting. By the time of discharge, she was independent transfers, independent ambulating 150 feet, independent going up and down 5 steps, independent in activities of daily living including toileting and toilet transfers. She was discharged home 03/27/17. DISCHARGE DIET: Regular. DISCHARGE MEDICATIONS: 1. Aspirin, one full strength aspirin 325 mg daily every day for three weeks. 2. Lipitor 10 mg daily at 5 p.m. 3. Prozac 20 mg daily. 4. Gabapentin 600 mg 3 times a day. 5. Trilafon 8 mg at bedtime. 6. Seroquel 200 mg at bedtime. 7. Percocet 5/325, one to two tablets every 4 hours as needed. SERVICES AFTER DISCHARGE: Through visiting nurse service. She will have home nursing, home physical therapy, and home health aide. Follow up with her primary care doctor, Dr. Jordon Joseph as well as with her orthopedic surgeon, Dr. Yassine Mcgee. [id number]/[facility] #: [id number] KODY
== END 2017-03-27 15:30 | disposition home health service (06) | DRG 561 ==
LOC: PMRU 12:21
PROVIDERS: ADMIT Physical Medicine & Rehabilitation; ATTEND Physical Medicine & Rehabilitation
PROC: F07Z5ZZ Bed Mobility Treatment (ICD-10-PCS; principal; 2017-03-16)
PROC: F07Z9ZZ Gait Training/Functional Ambulation Treatment (ICD-10-PCS; 2017-03-16)
PROC: F07Z8ZZ Transfer Training Treatment (ICD-10-PCS; 2017-03-16)
PROC: F08Z0ZZ Bathing/Showering Techniques Treatment (ICD-10-PCS; 2017-03-16)
PROC: F08Z1ZZ Dressing Techniques Treatment (ICD-10-PCS; 2017-03-16)
PROC: F08Z3ZZ Feeding/Eating Treatment (ICD-10-PCS; 2017-03-16)
DX: S72.102D Unspecified trochanteric fracture of left femur, subsequent encounter for closed fracture with routine healing (principal); J44.9 Chronic obstructive pulmonary disease, unspecified; F32.9 Major depressive disorder, single episode, unspecified; W18.30XD Fall on same level, unspecified, subsequent encounter; K21.9 Gastro-esophageal reflux disease without esophagitis; F17.210 Nicotine dependence, cigarettes, uncomplicated; M21.852 Other specified acquired deformities of left thigh; Z79.899 Other long term (current) drug therapy; Z88.5 Allergy status to narcotic agent; Z88.8 Allergy status to other drugs, medicaments and biological substances; K59.00 Constipation, unspecified; R33.9 Retention of urine, unspecified
CPT/HCPCS: 36415; 80053; 85025; 99406; A9270-GY; J1650

== ENCOUNTER → 2017-04-23 16:04 | Emergency (ER) | payer MEDICARE, MEDICAID ==
[~2017-04-23 16:04] MED LIST: HYDROcodone/ACETAMIN 5-325 MG* 1 TAB PO ONE
[2017-04-23 16:43] VITALS: BP 169/73
--- NOTE | 2017-04-23 17:32 | RAD ---
INDICATION: Fall. Right hip pain COMPARISON: Left hip and pelvis April 03, 2017 TECHNIQUE: An AP view of the pelvis and AP views of the hip in neutral and abducted position were obtained FINDINGS: Bones: There are no acute bony findings. There is a Cobb screw in the left hip Joint spaces: The hips articulate normally. The joint spaces are preserved. SI joints/symphysis: The SI joints and symphysis are intact. Other: None IMPRESSION: NO ACUTE BONY FINDINGS. MENG SCREW LEFT HIP
--- NOTE | 2017-04-23 19:26 | ED ---
Lower Extremity - HPI Summary HPI Summary: Patient presents to the ED with CC of right hip pain after sustaining a fall. She states she was dizzy prior to the fall, but also states she tripped over an object which caused her to fall onto her right hip. She had L hip surgery [address] Mcgee which is still healing and she continues to use a walker for ambulation. She states since the L hip surgery, she has felt dizzy intermittently most likely d/t the pain medication. She is on oxycodone at home and tries to take it sparingly only if needed. She did not take any today s/p accident. She also has not taken her ibuprofen today. She denies any other issues at this time. Pain is located discretely over the hip socket an joint with pain a 8/10, constant and throbbing. Ambulation makes the pain worse, but she has been ambulating since the accident. Denies bladder or bowel dysfunction. She denies hitting her head or LOC. - History of Current Complaint Chief Complaint: EDHipPelvisInjury Stated Complaint: HEAD/NECK/BACK PAIN Time Seen by Provider: 04/23/17 16:57 Hx Obtained From: Patient Mechanism Of Injury: Direct Blow Onset of Pain: Immediate Onset/Duration: Hours Severity Initially: Moderate Severity Currently: Moderate Pain Intensity: 1 Pain Scale Used: 0-10 Numeric Timing: Constant Location: Is Discrete @ - right hip joint without ecchymosis Character Of Pain: Aching Associated Signs And Symptoms: Positive: Bruising Aggravating Factor(s): Standing, Ambulation Alleviating Factor(s): Rest Able to Bear Weight: Yes - Risk Factors Gout Risk Factors: Negative DVT Risk Factors: Negative Septic Arthritis Risk Factor: Negative - Allergies/Home Medications Allergies/Adverse Reactions: Allergies Allergy/AdvReac Type Severity Reaction Status Date / Time Clonazepam AdvReac Severe Altered Verified 03/13/17 14:43 Mental Status Codeine AdvReac Severe Altered Verified 03/13/17 14:42 Mental Status codeine together with Allergy Severe Altered Uncoded 07/21/15 18:42 clonipin Mental Status PMH/Surg Hx/FS Hx/Imm Hx Previously Healthy: Yes Endocrine/Hematology History: Denies: Hx Diabetes, Hx Thyroid Disease Cardiovascular History: Reports: Hx Hypercholesterolemia, Other Cardiovascular Problems/Disorders - high cholesterol Denies: Hx Hypertension, Hx Pacemaker/ICD Respiratory History: Reports: Hx Asthma - COPD, Hx Chronic Obstructive Pulmonary Disease (COPD), Hx Pneumonia Denies: Other Respiratory Problems/Disorders GI History: Denies: Hx Ulcer History: Denies: Hx Renal Disease Musculoskeletal History: Reports: Hx Arthritis, Hx Orthopedic Injury - BL knee dislocation Denies: Hx Rheumatoid Arthritis, Hx Osteoporosis Sensory History: Reports: Hx Cataracts - bilateral surgery, Hx Contacts or Glasses Denies: Hx Legally Blind, Hx Hearing Aid Opthamlomology History: Reports: Hx Cataracts - bilateral surgery, Hx Contacts or Glasses Denies: Hx Legally Blind Neurological History: Denies: Hx Seizures Psychiatric History: Reports: Hx Anxiety, Hx Depression Denies: Hx Substance Abuse - Surgical History Surgery Procedure, Year, and Place: Foot surgery for bunions x2, breast cyst removed benign, cataract surgery x2,2 knee surgeries for dislocated knee cap Hx Anesthesia Reactions: No - Immunization History Hx Pertussis Vaccination: No Immunizations Up to Date: Unable to Obtain/Confirm Infectious Disease History: No Infectious Disease History: Denies: Hx Clostridium Difficile, Hx Hepatitis, Hx Human Immunodeficiency Virus (HIV), Hx of Known/Suspected MRSA, Hx Shingles, Hx Tuberculosis, Hx Known/ Suspected VRE, Hx Known/Suspected VRSA, History Other Infectious Disease, Traveled Outside the [place] in Last 30 Days - Family History Known Family History: Positive: Hypertension - Social History Occupation: Unemployed Lives: With Family Alcohol Use: Rare Hx Substance Use: No Substance Use Type: Reports: None Hx Tobacco Use: Yes Smoking Status (MU): Heavy Every Day Tobacco Smoker Type: Cigarettes Amount Used/How Often: 1 PPD Have You Smoked in the Last Year: Yes Review of Systems Constitutional: Negative Negative: Fever, Chills Eyes: Negative Cardiovascular: Negative Respiratory: Negative Negative: Shortness Of Breath, Cough Gastrointestinal: Negative Genitourinary: Negative Positive: no symptoms reported, see HPI Positive: Arthralgia - right hip pain Positive: Bruising Neurological: Negative All Other Systems Reviewed And Are Negative: Yes Physical Exam Triage Information Reviewed: Yes Vital Signs On Initial Exam: Initial Vitals Temp Pulse Resp BP Pulse Ox 98.3 F 66 20 169/73 93 04/23/17 16:38 04/23/17 16:38 04/23/17 16:38 04/23/17 16:38 04/23/17 16:38 Vital Signs Reviewed: Yes Appearance: Positive: Well-Appearing, Well-Nourished Skin: Positive: Warm, Skin Color Reflects Adequate Perfusion Head/Face: Positive: Normal Head/Face Inspection Eyes: Positive: Normal, DOROTHY Neck: Positive: Supple, No Lymphadenopathy Respiratory/Lung Sounds: Positive: Clear to Auscultation, Breath Sounds Present Cardiovascular: Positive: Normal, RRR Musculoskeletal: Positive: Pain @ - right hip pain Neurological: Positive: Speech Normal Psychiatric: Positive: Normal Diagnostics - Vital Signs Vital Signs Temp Pulse Resp BP Pulse Ox 04/23/17 16:38 98.3 F 66 20 169/73 93 - Laboratory Lab Statement: Any lab studies that have been ordered have been reviewed, and results considered in the medical decision making process. Lower Extremity Course/Dx - Course Course Of Treatment: Patient is evaluated for right hip pain after a fall this afternoon. She underwent surgery for her L hip 6 weeks ago. She notes to pain in the right hip after landing directly on the hip after a mechanical fall this afternoon. She notes to some dizziness recently, but states it likely is from the medications she takes since the fall. She is currently taking Oxycodone. She denies other pain or symptoms including head pain. Denies hitting her head or LOC. Xrays show: IMPRESSION: NO ACUTE BONY FINDINGS. MENG SCREW LEFT HIP. She is given 2 NORCO in the ED for pain management as she has not taken her home dose today. Also, her son is at bedside and will provide a safe ride home. She is to follow up with PCP in 2- [address] Mcgee for the contralateral hip as scheduled. She is to return if symptoms worsen and she understands these return precautions. - Diagnoses Differential Diagnosis/HQI/PQRI: Positive: Fracture (Closed), Fracture (Open), Strain Provider Diagnoses: Contusion, hip Discharge - Discharge Plan Condition: Stable Disposition: HOME Patient Education Materials: Hip Sprain (ED) Referrals: Jordon Joseph MD [Primary Care Provider] - 1 Week (Hip contusion s/p fall from dizziness) Additional Instructions: Follow up with PCP next week If you develop worsening symptoms, you may return to the ED Take your at home pain medications only as needed for pain not well controlled with ibuprofen Ibuprofen 600mg three times daily Apply moist heat to the area several times per day
== END | disposition home or self-care (01) ==
LOC: ED 16:04
DX: S70.01XA Contusion of right hip, initial encounter (principal); F17.210 Nicotine dependence, cigarettes, uncomplicated; Z88.5 Allergy status to narcotic agent; E78.00 Pure hypercholesterolemia, unspecified; W18.09XA Striking against other object with subsequent fall, initial encounter; Y92.9 Unspecified place or not applicable
CPT/HCPCS: 99281

== ENCOUNTER 2017-05-01 17:11 | Inpatient (IN) | payer MEDICARE, MEDICAID ==
[2017-05-01] MEDS ORDERED: NS 0.9% 1000 ML* 1,000 ML IV ONE (17:40)
[2017-05-01] MEDS ORDERED: Morphine INJ* 4 MG/ML 1 ML CARPUJECT IV ONE (17:40)
[2017-05-01] MEDS ORDERED: Ondansetron INJ* 2 MG/ML VIAL IV ONE (17:40)
[2017-05-01 17:57] LABS: Hematocrit 33 % (35-47); Mean Corpuscular HGB Conc 34 g/dl (31-36); Mean Corpuscular Hemoglobin 30 pg (27-31); Mean Corpuscular Volume 90 fL (80-97); Mean Platelet Volume 8 um3 (7.4-10.4); Red Blood Count 3.62 10^6/ul (4.0-5.4); Red Cell Distribution Width 14 % (10.5-15); White Blood Count 6.4 10^3/ul (3.5-10.8)
[2017-05-01 18:34] LABS: Albumin 3.7 g/dL (3.2-5.2); BUN/Creatinine Ratio 34.7 (8-20); EGFR African American 103.3 (>60); EGFR Non-African American 80.3 (>60); Globulin 2.4 g/dL (2-4); Potassium 3.7 mmol/L (3.5-5.0); Total Bilirubin 0.5 mg/dL (0.2-1.0); Total Protein 6.1 g/dL (6.4-8.9)
--- NOTE | 2017-05-01 18:45 | RAD ---
INDICATION: Right hip and leg pain COMPARISON: Most recent comparison chest x-rays dated March 13, 2017 TECHNIQUE: Single AP portable view of the chest was obtained. FINDINGS: Image quality is compromised due to the relative inferiority of a portable chest x-ray. The heart and mediastinum exhibit normal size and contour. Again seen is calcified atherosclerosis overlying the arch of the aorta. The lungs are grossly clear. There is no evidence of a large pleural effusion. Visualized bones are normal for the patient's age. IMPRESSION: No radiographic evidence for acute cardiopulmonary abnormality on this portable chest x-ray.
--- NOTE | 2017-05-01 18:52 | RAD ---
INDICATION: Right hip pain COMPARISON: Similar radiograph April 23, 2017 TECHNIQUE: 4 views of the right hip were obtained. FINDINGS: There is a right intertrochanteric fracture exhibiting moderate varus deformity. Remaining visualized bones are intact and appropriately aligned. The left hip fixation device is appropriately aligned. IMPRESSION: Moderately displaced right intertrochanteric fracture.
--- NOTE | 2017-05-01 19:42 | ED ---
Sesar Perea Thomas, scribed for Annie Baires MD on 05/01/17 at 1747 . Lower Extremity - HPI Summary HPI Summary: The pt is a 71 y/o F presenting to the ED c/o R hip pain s/p an accidental fall five days ago. She had a surgical L hip repair recently and was using a walker at the time of the fall. She rates the pain 10/10. She has been unable to walk since five days ago secondary to the pain. The patient has also been sleeping in a wheelchair because the pain is aggravated by lying down in the bed. She also has swelling to her legs bilaterally. She lives with her boyfriend. She has a Hx of depression and is on psychiatric medication. - History of Current Complaint Chief Complaint: EDHipPelvisInjury Stated Complaint: RT HIP AND LEG PAIN Time Seen by Provider: 05/01/17 17:18 Hx Obtained From: Patient Mechanism Of Injury: Fall From A Standing Position - while using a walker Onset of Pain: Immediate Onset/Duration: Days - fall was five days ago Pain Intensity: 10 Pain Scale Used: 0-10 Numeric Timing: Constant Location: Is Discrete @ - R hip Associated Signs And Symptoms: Positive: Swelling - bilateral leg swelling. Negative: Fever Aggravating Factor(s): Standing, Ambulation, Movement, Weight Bearing Alleviating Factor(s): Nothing - Allergies/Home Medications Allergies/Adverse Reactions: Allergies Allergy/AdvReac Type Severity Reaction Status Date / Time Clonazepam AdvReac Severe Altered Verified 03/13/17 14:43 Mental Status Codeine AdvReac Severe Altered Verified 03/13/17 14:42 Mental Status codeine together with Allergy Severe Altered Uncoded 07/21/15 18:42 clonipin Mental Status PMH/Surg Hx/FS Hx/Imm Hx Previously Healthy: No Endocrine/Hematology History: Denies: Hx Diabetes, Hx Thyroid Disease Cardiovascular History: Reports: Hx Hypercholesterolemia, Other Cardiovascular Problems/Disorders - high cholesterol Denies: Hx Hypertension, Hx Pacemaker/ICD Respiratory History: Reports: Hx Asthma - COPD, Hx Chronic Obstructive Pulmonary Disease (COPD), Hx Pneumonia Denies: Other Respiratory Problems/Disorders GI History: Denies: Hx Ulcer History: Denies: Hx Renal Disease Musculoskeletal History: Reports: Hx Arthritis, Hx Orthopedic Injury - BL knee dislocation Denies: Hx Rheumatoid Arthritis, Hx Osteoporosis Sensory History: Reports: Hx Cataracts - bilateral surgery, Hx Contacts or Glasses Denies: Hx Legally Blind, Hx Hearing Aid Opthamlomology History: Reports: Hx Cataracts - bilateral surgery, Hx Contacts or Glasses Denies: Hx Legally Blind Neurological History: Denies: Hx Seizures Psychiatric History: Reports: Hx Anxiety, Hx Depression Denies: Hx Substance Abuse - Surgical History Surgery Procedure, Year, and Place: Foot surgery for bunions x2, breast cyst removed benign, cataract surgery x2,2 knee surgeries for dislocated knee cap Hx Anesthesia Reactions: No Infectious Disease History: Yes Infectious Disease History: Denies: Hx Clostridium Difficile, Hx Hepatitis, Hx Human Immunodeficiency Virus (HIV), Hx of Known/Suspected MRSA, Hx Shingles, Hx Tuberculosis, Hx Known/ Suspected VRE, Hx Known/Suspected VRSA, History Other Infectious Disease, Traveled Outside the [place] in Last 30 Days - Family History Known Family History: Positive: Hypertension - Social History Lives: With Family - with boyfriend Alcohol Use: Rare Hx Substance Use: No Substance Use Type: Reports: None Hx Tobacco Use: Yes Smoking Status (MU): Heavy Every Day Tobacco Smoker Type: Cigarettes Amount Used/How Often: 1 PPD Have You Smoked in the Last Year: Yes Review of Systems Negative: Fever Positive: Edema - bilateral leg, Other - R hip pain s/p a fall 5 days ago All Other Systems Reviewed And Are Negative: Yes Physical Exam Triage Information Reviewed: Yes Vital Signs On Initial Exam: Initial Vitals Temp Pulse Resp BP Pulse Ox 98.8 F 91 8 178/89 99 05/01/17 17:19 05/01/17 17:19 05/01/17 17:19 05/01/17 17:19 05/01/17 17:19 Vital Signs Reviewed: Yes Appearance: Positive: Well-Appearing, Pain Distress Skin: Positive: Warm, Skin Color Reflects Adequate Perfusion, Dry Eyes: Positive: EOMI, DOROTHY ENT: Positive: Pharynx normal, TMs normal Neck: Positive: Supple, Nontender Respiratory/Lung Sounds: Positive: Clear to Auscultation, Breath Sounds Present. Negative: Rales, Rhonchi, Wheezes Cardiovascular: Positive: RRR, Other - No gallop. Negative: Murmur, Rub Abdomen Description: Positive: Nontender, Soft, Other: - No rebound. Negative: Distended, Guarding Bowel Sounds: Positive: Present Neurological: Positive: Sensory/Motor Intact, Other - There is edema 2+ up to her thighs bilaterally. The right leg is externally rotate. It is not shortened. It does have pulses. Psychiatric: Positive: Affect/Mood Appropriate Diagnostics - Vital Signs Vital Signs Temp Pulse Resp BP Pulse Ox 05/01/17 17:19 98.8 F 91 8 178/89 99 - Laboratory Lab Results: Lab Results 05/01/17 05/01/17 05/01/17 Range/Units 17:35 17:35 17:35 WBC 6.4 (3.5-10.8) 10^3/ul RBC 3.62 L (4.0-5.4) 10^6/ul Hgb 11.0 L (12.0-16.0) g/dl Hct 33 L (35-47) % MCV 90 (80-97) fL MCH 30 (27-31) pg MCHC 34 (31-36) g/dl RDW 14 (10.5-15) % Plt Count 268 (150-450) 10^3/ul MPV 8 (7.4-10.4) um3 Neut % (Auto) 55.3 (38-83) % Lymph % (Auto) 31.9 (25-47) % Gilchrist % (Auto) 9.4 H (1-9) % Eos % (Auto) 2.1 (0-6) % Baso % (Auto) 1.3 (0-2) % Absolute Neuts (auto) 3.5 (1.5-7.7) 10^3/ul Absolute Lymphs (auto) 2.0 (1.0-4.8) 10^3/ul Absolute Monos (auto) 0.6 (0-0.8) 10^3/ul Absolute Eos (auto) 0.1 (0-0.6) 10^3/ul Absolute Basos (auto) 0.1 (0-0.2) 10^3/ul Absolute Nucleated RBC 0 10^3/ul Nucleated RBC % 0 INR (Anticoag Therapy) 0.97 (0.89-1.11) APTT 25.9 L (26.0-36.3) seconds Sodium 142 (133-145) mmol/L Potassium 3.7 (3.5-5.0) mmol/L Chloride 107 (101-111) mmol/L Carbon Dioxide 28 (22-32) mmol/L Anion Gap 7 (2-11) mmol/L BUN 25 H (6-24) mg/dL Creatinine 0.72 (0.51-0.95) mg/dL Est GFR ( Amer) 103.3 (>60) Est GFR (Non-Af Amer) 80.3 (>60) BUN/Creatinine Ratio 34.7 H (8-20) Glucose 129 H (70-100) mg/dL Lactic Acid (0.5-2.0) mmol/L Calcium 9.0 (8.6-10.3) mg/dL Total Bilirubin 0.50 (0.2-1.0) mg/dL AST 13 (13-39) U/L ALT 13 (7-52) U/L Alkaline Phosphatase 76 (34-104) U/L Total Creatine Kinase 136 (10-223) U/L Troponin I 0.00 (<0.04) ng/mL Total Protein 6.1 L (6.4-8.9) g/dL Albumin 3.7 (3.2-5.2) g/dL Globulin 2.4 (2-4) g/dL Albumin/Globulin Ratio 1.5 (1-3) Blood Type Antibody Screen 05/01/17 05/01/17 Range/Units 17:35 17:35 WBC (3.5-10.8) 10^3/ul RBC (4.0-5.4) 10^6/ul Hgb (12.0-16.0) g/dl Hct (35-47) % MCV (80-97) fL MCH (27-31) pg MCHC (31-36) g/dl RDW (10.5-15) % Plt Count (150-450) 10^3/ul MPV (7.4-10.4) um3 Neut % (Auto) (38-83) % Lymph % (Auto) (25-47) % Gilchrist % (Auto) (1-9) % Eos % (Auto) (0-6) % Baso % (Auto) (0-2) % Absolute Neuts (auto) (1.5-7.7) 10^3/ul Absolute Lymphs (auto) (1.0-4.8) 10^3/ul Absolute Monos (auto) (0-0.8) 10^3/ul Absolute Eos (auto) (0-0.6) 10^3/ul Absolute Basos (auto) (0-0.2) 10^3/ul Absolute Nucleated RBC 10^3/ul Nucleated RBC % INR (Anticoag Therapy) (0.89-1.11) APTT (26.0-36.3) seconds Sodium (133-145) mmol/L Potassium (3.5-5.0) mmol/L Chloride (101-111) mmol/L Carbon Dioxide (22-32) mmol/L Anion Gap (2-11) mmol/L BUN (6-24) mg/dL Creatinine (0.51-0.95) mg/dL Est GFR ( Amer) (>60) Est GFR (Non-Af Amer) (>60) BUN/Creatinine Ratio (8-20) Glucose (70-100) mg/dL Lactic Acid 1.1 (0.5-2.0) mmol/L Calcium (8.6-10.3) mg/dL Total Bilirubin (0.2-1.0) mg/dL AST (13-39) U/L ALT (7-52) U/L Alkaline Phosphatase (34-104) U/L Total Creatine Kinase (10-223) U/L Troponin I (<0.04) ng/mL Total Protein (6.4-8.9) g/dL Albumin (3.2-5.2) g/dL Globulin (2-4) g/dL Albumin/Globulin Ratio (1-3) Blood Type A Positive Antibody Screen Negative Result Diagrams: 05/01/17 17:35 05/01/17 17:35 Lab Statement: Any lab studies that have been ordered have been reviewed, and results considered in the medical decision making process. - Radiology Hip XR Xray Interpretation: Positive (See Comments) - Moderately displaced right intertrochanteric fracture. ED physician has reviewed this report and agrees. Radiology Interpretation Completed By: Radiologist CXR Xray Interpretation: No Acute Changes - No radiographic evidence for acute cardiopulmonary abnormality on this portable chest x-ray. ED physician has reviewed this report and agrees. Radiology Interpretation Completed By: Radiologist - EKG 17:47 Cardiac Rate: NL - 84 BPM EKG Interpretation: Normal EKG. Lower Extremity Course/Dx - Course Course Of Treatment: 71 yo status post a fall on Thursday who sat in a wheel chair all week because she couldn't get up with surgical neck fracture on the right, she is of note s/p left hip fracture with repair in March. The case was discussed with orthopedics and with the hospitalist for admission - Diagnoses Provider Diagnoses: Hip fracture, right - Physician Notifications Discussed Care Of Patient With: Jean Carlos Tejada Time Discussed With Above Provider: 19:33 Instructed by Provider To: Other - I consulted with Dr. Tejada, hospitalist, who admits the patient. I also consulted with Dr. Malik, orthopedics, at 19:30 regarding patient care. Discharge - Discharge Plan Condition: Fair Disposition: ADMITTED TO [facility] Referrals: Jordon Joseph MD [Primary Care Provider] - The documentation as recorded by the Sesar joshi Thomas accurately reflects the service I personally performed and the decisions made by me, Annie Baires MD.
[2017-05-01] MEDS ORDERED: Albuterol HFA INHALER* 8 gm MDI INH PRN (20:05)
[2017-05-01] MEDS ORDERED: Docusate CAP* 100 MG PO PRN (20:07)
[2017-05-01] MEDS ORDERED: NS 0.9% 1000 ML* 1,000 ML IV SCH (20:15)
--- NOTE | 2017-05-01 20:50 | RAD ---
Indication: Right hip and leg pain Comparison: Hip radiograph from same date that demonstrates an right intertrochanteric fracture. Technique: A total of 8 radiographs of the right hip and femur were acquired. Report: The left hip fixation device is anatomically aligned in the AP projection. Again seen is a partially comminuted right intertrochanteric fracture exhibiting varus deformity. The shaft of the femur is intact. There are advanced degenerative changes of the right knee including obliteration of the joint space and exuberant marginal osteophyte formation. A single intramedullary screw is noted overlying the medial tibial plateau. There is calcified atherosclerosis of the right superficial femoral artery. IMPRESSION: Varus deformity right intertrochanteric fracture in addition to chronic findings described above.
[2017-05-01] MEDS ORDERED: Morphine INJ* 4 MG/ML 1 ML CARPUJECT ONE (20:58)
[2017-05-01] MEDS ORDERED: Buffered Lidocaine 0.9% SYRIN* 5 ML/SYR SYRINGE INTRADERM ONE (21:05)
[2017-05-01 22:48] LABS: Urine Bacteria 3+ (Absent); Urine Bilirubin Negative (Negative); Urine Glucose Negative (Negative); Urine Nitrite Negative (Negative)
[2017-05-01] MEDS: Gabapentin CAP(*) 300 MG PO SCH (22:50)
[2017-05-01] MEDS: QUEtiapine TAB* 100 MG PO SCH (22:51)
[2017-05-01] MEDS: Calcium Carbonate TAB* 1250 MG (CALCIUM 500 MG) PO SCH (22:51)
[2017-05-01] MEDS: Atorvastatin* 10 MG TAB PO SCH (22:51)
[2017-05-01] MEDS: Heparin VIAL(*) 5000 UNITS/ML VIAL (FIVE THOUSAND) SUBCUT SCH (22:51)
[2017-05-01] MEDS: PERPHENAZINE 8 MG PO SCH (22:53)
--- NOTE | 2017-05-01 23:20 | HP ---
CC: Dr. Joseph HISTORY AND PHYSICAL: DATE OF ADMISSION: 05/01/17 PRIMARY CARE PHYSICIAN: Dr. Joseph. CHIEF COMPLAINT: Right hip pain, status post fall. HISTORY OF PRESENT ILLNESS: Ms. 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 The patient was just recently admitted to the hospit al last month after she had a fall and suffered a left hip fracture. The patient was in the PMRU he re and discharged on the . She states that this past Thursday, 5 days ago, she was using her walk er. She states that she had a tray on it with too many things and she subsequently slipped or lost control of the walker and fell in her carpeted living room on to her right side. She denies any pre ceding dizziness, chest pain or shortness of breath. She states she immediately had significant marlin n on the right side of her hip. She hit her head on the carpet, but did not lose consciousness. He r boyfriend was present who confirmed this. She had difficulty getting up on her own, so he helped her into her wheelchair and then she states that since then, she has pretty much been in the wheelch air the majority of the time. The pain worsened over the past few days and today became very severe . She had visiting nurse come to the house today, who recommended she come to the hospital for furt her evaluation. Imaging here shows a displaced right intertrochanteric fracture. The patient has otherwise felt well. No recent illnesses. She is not on home oxygen, but continues to smoke cigarettes. Orthopedics was consulted and recommended Hospitalist admit the patient. PAST MEDICAL HISTORY: COPD, tobacco abuse, depression, anxiety, hyperlipidemia. PAST SURGICAL HISTORY: Recent left DHS fixation of left hip compression screw and plate, bunionecto my x2, cataract surgery, left knee surgery x2 for dislocated patella. HOME MEDICATIONS: 1. Fluoxetine 20 mg by mouth daily. 2. Calcium carbonate 1500 mg by mouth 2 times daily. 3. Albuterol 1 puff inhaled every 6 hours as needed for shortness of breath or wheezing. 4. Simvastatin 20 mg by mouth at bedtime. 5. Seroquel 200 mg by mouth 2 times daily. 6. Perphenazine 8 mg by mouth at bedtime. 7. Multivitamin 1 tablet by mouth daily. 8. Ibuprofen 600 mg by mouth 3 times daily as needed for pain. 9. Gabapentin 600 mg by mouth in the morning, 600 mg by mouth at noon, 1200 mg by mouth at bedtime. 10. Percocet 5/325 one to two tablets by mouth every 4 hours as needed for pain. ALLERGIES: She reports allergies to CLONAZEPAM and CODEINE, specifically when combined. FAMILY HISTORY: Significant for brother with lung cancer, father with lung cancer, sister with lung cancer, brother with colon cancer. SOCIAL HISTORY: The patient is a pack per day smoker currently. States she has been smoking since she was in her 20's, reports rare alcohol use. Denies any illicit drug use. Lives at home with her boyfriend. REVIEW OF SYSTEMS: A 12-point review of systems negative except for that is noted in the HPI. PHYSICAL EXAMINATION GENERAL: The patient is a middle-aged female, appears older than stated age, lying in bed , in no apparent distress. VITAL SIGNS: On admission, temperature 98.8, heart rate of 91, respiratory rate of 12, O2 saturatio n 99% on room air, blood pressure initially 178/89, last pressure 137/75. HEENT: Head normocephalic, atraumatic. Eyes: Pupils equal, round, and reactive to light and accom modation. Anicteric sclerae. ENT: Dry mucous membranes. NECK: No cervical adenopathy. Nasal cannula in place. LUNGS: Clear to auscultation bilaterally. No wheezes, rales, or rhonchi. CARDIOVASCULAR: Regular rate and rhythm. S1 and S2 present. No murmurs, gallops, or rubs. ABDOMEN: Soft, nontender, nondistended. Bowel sounds are positive. EXTREMITIES: The patient with mild bilateral lower extremity edema. Right lower extremity is short ened and externally rotated. NEUROLOGIC: The patient is alert, oriented x3. No focal neurological deficits. DIAGNOSTIC STUDIES/LAB DATA: White blood cell count of 6.4, hematocrit of 33, platelets of 268. I NR 0.97. Sodium of 142, potassium 2.7, chloride of 107, carbon dioxide 28, BUN 25, creatinine 0.72. Glucose of 129, lactic acid of 1.1. LFTs are within normal limits. Troponin of 0.00. Chest x-ra y, personally reviewed, shows no acute disease. EKG, personally reviewed, shows normal sinus rhythm , no ischemic changes. Hip x-ray shows a displaced right intertrochanteric fracture. ASSESSMENT AND PLAN: Mechanical fall resulting in a right intertrochanteric hip fracture in a 71-ye ar-old female with history of chronic obstructive pulmonary disease, tobacco abuse, depression, anxi ety, hyperlipidemia, and recently repaired left hip fracture. 1. Right intertrochanteric fracture. Appreciate Orthopedics assistance, they are aware. Dr. Gisele hurtado in the emergency room will evaluate the patient. EKG and chest x-ray done. I do not think patien t needs any further workup prior to undergoing surgery. We will write for morphine p.r.n. for analg esia, make the patient n.p.o. after midnight. 2. Chronic obstructive pulmonary disease. The patient was placed on oxygen in the emergency depart ment, not clear if she was ever hypoxic. She is not on oxygen at home. Lungs appeared clear. We w ill continue her p.r.n. albuterol for now. 3. Tobacco abuse. We will write for nicotine replacement. 4. Depression and anxiety. Continue home Seroquel, Prozac, and perphenazine. 5. Hyperlipidemia, continue home statin. 6. DVT prophylaxis. Heparin subcu. 7. Code status. The patient is a full code. TIME SPENT: Total time spent on this admission 45 minutes with over half the time spent face-to-fac e with the patient in counseling and coordinating care. [id number]/[facility] #: [id number]
--- NOTE | 2017-05-01 23:53 | HP ---
CC: PCP HISTORY AND PHYSICAL: DATE OF ADMISSION: 05/01/17 DATE OF SERVICE: 05/01/17 She was also admitted on this date to the hospitalist service. CHIEF COMPLAINT: Right hip pain. HISTORY OF PRESENT ILLNESS: Briefly, Pooja Leblanc is a 71-year-old female, who sustained a mechanical fall while reaching for coffee on Thursday. We are unable to determine whether she had any loss of consciousness. She is not able to offer any more details. She is present with a family member, who lives with her, who says that she fell while going for coffee. Since this happened on Thursday, she has been in the wheelchair. She had been trying to weightbear on it , but had some pain, finally she decided to come to the hospital to be evaluated , was diagnosed with a hip fracture. She did have a recent left hip fracture that was treated by Dr. Mcgee on 03/14/17, which was treated with a DHS. She was recently discharged. She denies any numbness or tingling. No fevers, no chills, no calf pain. She was admitted for inpatient rehab postoperatively. PAST MEDICAL HISTORY: Significant for COPD, tobacco use, depression, anxiety, GERD. PAST SURGICAL HISTORY: Status post bunionectomy x2, cataract surgery, left knee surgeries x2 for dislocated knee cap, left hip ORIF on 03/14/[address] Mcgee. FAMILY HISTORY: Negative. SOCIAL HISTORY: She smokes a pack a day since her early 20s. She denies alcohol or drug use. Her surrogate decision maker is her son, Severiano Leblanc, who is present at her bedside today. She lives with him. REVIEW OF SYSTEMS: A 14-point review of systems was reviewed with the patient significant for recent left hip fracture and underwent open reduction and internal fixation by Dr. Mcgee, and current complaint. She denies any numbness or tingling. No fevers or chills. No shortness of breath or chest pain. Otherwise, remainder of systems negative. PHYSICAL EXAMINATION GENERAL: She is in no acute distress. She is well developed, well nourished. She has pleasant mood, normal affect. VITAL SIGNS: Temperature 98.8, pulse of 95, respiratory rate of 12, O2 saturation of 96% on room air, blood pressure 188/86. HEENT: EOMI. CHEST: Clear to auscultation. HEART: Regular rate and rhythm. ABDOMEN: Soft, nontender. MUSCULOSKELETAL: Examination of the right leg demonstrates the skin is intact, there is a small amount of hematoma posteriorly. She is alert and oriented x3. She is able to move all 4 extremities. Examination of the right hip demonstrates the skin is intact. There is no erythema or warmth. Her calf is soft and nontender. She has external rotation deformity and appeared shortened. She is sensate to light touch about the first dorsal webspace, medial, lateral, dorsal, and plantar foot. She has 2+ PT pulse. She is able to flex and extend her toes and dorsiflex and plantar flex her ankle. DIAGNOSTIC STUDIES/LAB DATA: White count of 6.4, hematocrit of 33, platelet count of 268. INR of 0.97. Sodium of 142, potassium 3.7, chloride of 107, carbon dioxide 28, BUN of 25, creatinine 0.72, glucose of 129. X-rays demonstrate a right displaced intertrochanteric fracture with comminution. ASSESSMENT AND PLAN: She has a right hip fracture within 6 weeks of her previous hip fracture, this is about 5 or 6 days delay now. At this point, she is going to be medically optimized. She is admitted to the medicine service. She will undergo right hip intramedullary nail on 05/02/17 if she is medically stable and cleared. We did discuss the risks and benefits of surgery versus nonoperative treatment. I advised to pursue operative management. We also discussed that she should quit smoking. We did talk about risks of bleeding, infection, damage to nerves, vessels, or surrounding structures, wound nonhealing, persistent pain, need for surgery, scarring, stiffness, incomplete relief of pain, risk of DVT, risk of anesthesia. She and her son elected like to proceed. We will plan for in the morning. [id number]/[facility] #: [id number] KODY
[2017-05-02] MEDS ORDERED: Nicotine Patch Removal NOTE FOLLOW UP SCH (06:00)
[2017-05-02] MEDS: Heparin VIAL(*) 5000 UNITS/ML VIAL (FIVE THOUSAND) SUBCUT SCH ×2 (06:06→15:08)
[2017-05-02] MEDS: Morphine INJ* 4 MG/ML 1 ML CARPUJECT IV PRN (06:11)
[2017-05-02] MEDS ORDERED: Bupivacaine 0.5% SDV PF* 30 ML VIAL ONE (07:04)
[2017-05-02] MEDS ORDERED: ceFAZolin 2 GM PREMIX (*) 50 ML IVPB ONE (07:46)
[2017-05-02] MEDS ORDERED: Midazolam* 1 MG/ML 2 ML VIAL (2 MG) ONE (08:16)
[2017-05-02] MEDS ORDERED: fentaNYL* 50 MCG/ML 2 ML VIAL (100 MCG VIAL) ONE ×3 (08:16→11:52)
[2017-05-02] MEDS ORDERED: Lidocaine 2% PF * 5 ML VIAL ONE (08:38)
[2017-05-02] MEDS ORDERED: Dexamethasone IV* 4 MG/ML 1 ML (4 MG) ONE (08:38)
[2017-05-02] MEDS ORDERED: Propofol* 10 MG/ML 20 ML BTL IV PUSH ONE (08:38)
[2017-05-02] MEDS ORDERED: Cisatracurium* 2 MG/ML MDV 5 ML ONE (08:38)
[2017-05-02] MEDS ORDERED: Famotidine IV* 10 MG/ML 2 ML (20 mg) ONE (08:38)
[2017-05-02] MEDS ORDERED: Desflurane* 240 ML INH ONE (09:25)
[2017-05-02] MEDS ORDERED: EPHEDrine (Pressors)* 50 MG/ML VIAL ONE (09:25)
[2017-05-02] MEDS ORDERED: Hetastarch in NS* 500 ML IV ONE (10:03)
[2017-05-02] MEDS ORDERED: Ketorolac INJ* 30 MG/ML 1 ML VIAL ONE (10:40)
[2017-05-02] MEDS ORDERED: PROCHLORPERAZINE INJ 5 MG/ML 2 ML VIAL IV PRN (10:45)
[2017-05-02] MEDS ORDERED: Acetaminophen TAB* 325 MG PO PRN ×2 (10:45→11:21)
[2017-05-02] MEDS ORDERED: Ondansetron INJ* 2 MG/ML VIAL IV PRN ×2 (10:45→11:21)
[2017-05-02] MEDS ORDERED: Levalbuterol 0.63MG/3ML NEB* UNIT OF USE INH PRN (10:45)
[2017-05-02] MEDS ORDERED: fentaNYL* 50 MCG/ML 2 ML VIAL (100 MCG VIAL) IV PRN (10:45)
[2017-05-02] MEDS ORDERED: diPHENhydraMINE PO* 25 MG PO PRN (11:21)
[2017-05-02] MEDS ORDERED: Bisacodyl SUPP* 10 MG SUPP PR PRN (11:21)
[2017-05-02] MEDS ORDERED: Morphine INJ* 2 MG/ML 1 ML CARPUJECT IV PRN (11:21)
--- NOTE | 2017-05-02 11:29 | RAD ---
INDICATION: RIGHT hip fracture intratrochanteric. Gamma nail internal fixation. COMPARISON: May 01, 2017 TECHNIQUE: 109.3 seconds fluoroscopy. FINDINGS: Spot images document placement of a gamma nail across the intratrochanteric RIGHT femoral neck fracture with grossly restored alignment. IMPRESSION: Procedural fluoroscopy. CPT II Codes: 6045F
[2017-05-02] MEDS ORDERED: Acetaminophen TAB* 325 MG ONE (11:52)
--- NOTE | 2017-05-02 12:41 | RAD ---
Indication: Postop RIGHT hip ORIF. Comparison: May 01, 2017 Technique: AP pelvis and proximal femurs, AP RIGHT hip, crosstable lateral RIGHT hip Report: Gamma nail internal fixation at the intratrochanteric fracture of the RIGHT femur with grossly restored alignment. The hip is normally located. Surrounding soft tissue edema and subcutaneous emphysema. Lateral cutaneous jermaine. Dynamic compression screw internal fixation at the LEFT hip change. IMPRESSION: Unremarkable immediate postop exam following RIGHT hip gamma nail internal fixation.
[2017-05-02] MEDS: Calcium Carbonate TAB* 1250 MG (CALCIUM 500 MG) PO SCH ×2 (12:51→20:01)
[2017-05-02] MEDS: Multivitamins/Minerals TAB PO SCH (12:52)
[2017-05-02] MEDS: QUEtiapine TAB* 100 MG PO SCH ×2 (12:52→20:02)
[2017-05-02] MEDS: Gabapentin CAP(*) 300 MG PO SCH ×3 (12:52→20:02)
[2017-05-02] MEDS ORDERED: Enoxaparin(*) 40 MG/0.4 ML SYR SUBCUT SCH (14:00)
[2017-05-02] MEDS: Nicotine PATCH 21 MG/24 HR* PATCH TRANSDERM SCH ×2 (14:12→18:18)
--- NOTE | 2017-05-02 14:23 | PN ---
Subjective Date of Service: 05/02/17 Interval History: Patient seen this afternoon after surgery. Still a bit groggy. Denies pain at present. Reports no appetite but no N/V Family History: Unchanged from Admission Social History: Unchanged from Admission Past Medical History: Unchanged from Admission Objective Active Medications: Acetaminophen (Tylenol Tab*) 650 mg PO Q4H PRN Albuterol (Ventolin Hfa Inhaler*) 1 puff INH Q6HR PRN Atorvastatin Calcium (Lipitor*) 10 mg PO BEDTIME NATHANIEL Bisacodyl (Dulcolax Supp*) 10 mg AK DAILY PRN Calcium Carbonate (Calcium Carbonate Tab*) 1,250 mg PO BID NATHANIEL Diphenhydramine HCl (Benadryl Po*) 25 mg PO Q6H PRN Docusate Sodium (Colace Cap*) 100 mg PO BID PRN Docusate Sodium (Colace Cap*) 100 mg PO BID NATHANIEL Enoxaparin Sodium (Lovenox(*)) 40 mg SUBCUT Q24H NATHANIEL Fluoxetine HCl (Prozac Cap*) 20 mg PO DAILY NATHANIEL Gabapentin (Neurontin Cap(*)) 600 mg PO TID NATHANIEL Heparin Sodium (Porcine) (Heparin Vial(*)) 5,000 units SUBCUT Q8HR NATHANIEL Sodium Chloride (Ns 0.9% 1000 Ml*) 1,000 mls @ 75 mls/hr IV PER RATE NATHANIEL Lactated Ringer's (Lactated Ringers 1000 Ml Bag*) 1,000 mls @ 125 mls/hr IV PER RATE NATHANIEL Cefazolin Sodium 1 gm/ Sodium (Chloride) 50 mls @ 200 mls/hr IVPB Q8H NATHANIEL Lactated Ringer's (Lactated Ringers 1000 Ml Bag*) 1,000 mls @ 100 mls/hr IV PER RATE NATHANIEL Lactulose (Lactulose*) 30 ml PO Q6H PRN Levalbuterol HCl (Xopenex 0.63mg/3ml Neb*) 0.63 mg INH ONCE PRN Magnesium Hydroxide (Milk Of Magnesia Liq*) 30 ml PO Q6H PRN Morphine Sulfate (Morphine Inj (Syringe)*) 4 mg IV Q4H PRN Morphine Sulfate (Morphine Inj (Syringe)*) 2 mg IV Q2H PRN Multivitamins/Minerals (Theragran/Minerals Tab*) 1 tab PO DAILY NATHANIEL Nicotine (Nicotine Patch 21 Mg/24 Hr*) 1 patch TRANSDERM DAILY@0800 [facility] Ondansetron HCl (Zofran Inj*) 4 mg IV Q6H PRN Oxycodone/Acetaminophen (Percocet 5/325 Tab*) 1 tab PO Q3H PRN Oxycodone/Acetaminophen (Percocet 5/325 Tab*) 2 tab PO Q3H PRN Perphenazine (Perphenazine (Nf)) 8 mg PO BEDTIME [facility] Pharmacy Profile Note (Nicotine Patch Removal Note*) 1 note FOLLOW UP 0600 [facility] Quetiapine Fumarate (Seroquel Tab*) 200 mg PO BID [facility] Vital Signs 05/01/17 05/01/17 05/01/17 19:52 20:00 21:00 Temperature Pulse Rate 87 88 Respiratory 11 9 18 Rate Blood Pressure 159/70 137/75 (mmHg) O2 Sat by Pulse 95 98 Oximetry 05/02/17 05/02/17 05/02/17 03:28 06:11 07:11 Temperature 97.9 F Pulse Rate 84 Respiratory 16 16 16 Rate Blood Pressure 152/67 (mmHg) O2 Sat by Pulse 97 Oximetry 05/02/17 05/02/17 12:47 12:57 Temperature 98.0 F Pulse Rate 85 Respiratory 17 18 Rate Blood Pressure 133/54 (mmHg) O2 Sat by Pulse 100 Oximetry Oxygen Devices in Use Now: Nasal Cannula Appearance: Elderly, F, laying in bed in NAD Eyes: No Scleral Icterus Ears/Nose/Mouth/Throat: - - Dry MM Neck: NL Appearance and Movements; NL JVP Respiratory: Symmetrical Chest Expansion and Respiratory Effort, Clear to Auscultation Cardiovascular: NL Sounds; No Murmurs; No JVD, RRR Abdominal: NL Sounds; No Tenderness; No Distention Lymphatic: No Cervical Adenopathy Extremities: - - R hip with dressing in place, some dried blood underneath Skin: No Rash or Ulcers Neurological: Alert and Oriented x 3 Result Diagrams: 05/02/17 13:47 05/02/17 13:47 Additional Lab and Data: Lab Results 05/01/17 05/01/17 05/01/17 Range/Units 17:35 17:35 17:35 WBC 6.4 (3.5-10.8) 10^3/ul RBC 3.62 L (4.0-5.4) 10^6/ul Hgb 11.0 L (12.0-16.0) g/dl Hct 33 L (35-47) % MCV 90 (80-97) fL MCH 30 (27-31) pg MCHC 34 (31-36) g/dl RDW 14 (10.5-15) % Plt Count 268 (150-450) 10^3/ul MPV 8 (7.4-10.4) um3 Neut % (Auto) 55.3 (38-83) % Lymph % (Auto) 31.9 (25-47) % [place] % (Auto) 9.4 H (1-9) % Eos % (Auto) 2.1 (0-6) % Baso % (Auto) 1.3 (0-2) % Absolute Neuts (auto) 3.5 (1.5-7.7) 10^3/ul Absolute Lymphs (auto) 2.0 (1.0-4.8) 10^3/ul Absolute Monos (auto) 0.6 (0-0.8) 10^3/ul Absolute Eos (auto) 0.1 (0-0.6) 10^3/ul Absolute Basos (auto) 0.1 (0-0.2) 10^3/ul Absolute Nucleated RBC 0 10^3/ul Nucleated RBC % 0 INR (Anticoag Therapy) 0.97 (0.89-1.11) APTT 25.9 L (26.0-36.3) seconds Sodium 142 (133-145) mmol/L Potassium 3.7 (3.5-5.0) mmol/L Chloride 107 (101-111) mmol/L Carbon Dioxide 28 (22-32) mmol/L Anion Gap 7 (2-11) mmol/L BUN 25 H (6-24) mg/dL Creatinine 0.72 (0.51-0.95) mg/dL Est GFR ( Amer) 103.3 (>60) Est GFR (Non-Af Amer) 80.3 (>60) BUN/Creatinine Ratio 34.7 H (8-20) Glucose 129 H (70-100) mg/dL Lactic Acid (0.5-2.0) mmol/L Calcium 9.0 (8.6-10.3) mg/dL Total Bilirubin 0.50 (0.2-1.0) mg/dL AST 13 (13-39) U/L ALT 13 (7-52) U/L Alkaline Phosphatase 76 (34-104) U/L Total Creatine Kinase 136 (10-223) U/L Troponin I 0.00 (<0.04) ng/mL Total Protein 6.1 L (6.4-8.9) g/dL Albumin 3.7 (3.2-5.2) g/dL Globulin 2.4 (2-4) g/dL Albumin/Globulin Ratio 1.5 (1-3) Blood Type Antibody Screen 05/01/17 05/01/17 Range/Units 17:35 17:35 WBC (3.5-10.8) 10^3/ul RBC (4.0-5.4) 10^6/ul Hgb (12.0-16.0) g/dl Hct (35-47) % MCV (80-97) fL MCH (27-31) pg MCHC (31-36) g/dl RDW (10.5-15) % Plt Count (150-450) 10^3/ul MPV (7.4-10.4) um3 Neut % (Auto) (38-83) % Lymph % (Auto) (25-47) % [place] % (Auto) (1-9) % Eos % (Auto) (0-6) % Baso % (Auto) (0-2) % Absolute Neuts (auto) (1.5-7.7) 10^3/ul Absolute Lymphs (auto) (1.0-4.8) 10^3/ul Absolute Monos (auto) (0-0.8) 10^3/ul Absolute Eos (auto) (0-0.6) 10^3/ul Absolute Basos (auto) (0-0.2) 10^3/ul Absolute Nucleated RBC 10^3/ul Nucleated RBC % INR (Anticoag Therapy) (0.89-1.11) APTT (26.0-36.3) seconds Sodium (133-145) mmol/L Potassium (3.5-5.0) mmol/L Chloride (101-111) mmol/L Carbon Dioxide (22-32) mmol/L Anion Gap (2-11) mmol/L BUN (6-24) mg/dL Creatinine (0.51-0.95) mg/dL Est GFR ( Amer) (>60) Est GFR (Non-Af Amer) (>60) BUN/Creatinine Ratio (8-20) Glucose (70-100) mg/dL Lactic Acid 1.1 (0.5-2.0) mmol/L Calcium (8.6-10.3) mg/dL Total Bilirubin (0.2-1.0) mg/dL AST (13-39) U/L ALT (7-52) U/L Alkaline Phosphatase (34-104) U/L Total Creatine Kinase (10-223) U/L Troponin I (<0.04) ng/mL Total Protein (6.4-8.9) g/dL Albumin (3.2-5.2) g/dL Globulin (2-4) g/dL Albumin/Globulin Ratio (1-3) Blood Type A Positive Antibody Screen Negative Assess/Plan/Problems-Billing Assessment: R intertrochanteric hip fx s/p IM nail placement in a 71 yo F with hx of COPD, HLD, depression, anxiety and recent L hip fx s/p surgical repair - Patient Problems (1) Hip fracture, right Current Visit: Yes Comment: Appreciate Orthopedic assistance. S/P IM nail placement on 05/[address] Malik. Analgesia. PT. H/H daily (2) COPD (chronic obstructive pulmonary disease) Current Visit: No Comment: No signs of exacerbation at this time Continue PRN nebs/inhalers (3) Anxiety and depression Current Visit: No Comment: Continue fluoxetine, gabapentin, seroquel and perphenazine (4) DVT prophylaxis Current Visit: No Comment: Lovenox
[2017-05-02 14:32] LABS: Hematocrit 21 % (35-47); Hemoglobin 7.1 g/dl (12.0-16.0); Mean Corpuscular HGB Conc 33 g/dl (31-36); Mean Corpuscular Hemoglobin 31 pg (27-31); Mean Corpuscular Volume 92 fL (80-97); Mean Platelet Volume 9 um3 (7.4-10.4); Red Blood Count 2.33 10^6/ul (4.0-5.4); Red Cell Distribution Width 14 % (10.5-15); White Blood Count 7.9 10^3/ul (3.5-10.8)
[2017-05-02 14:39] LABS: BUN/Creatinine Ratio 33.9 (8-20); Calcium 7.6 mg/dL (8.6-10.3); EGFR Non-African American 101.1 (>60); Potassium 3.6 mmol/L (3.5-5.0)
[2017-05-02] MEDS: FLUoxetine CAP* 20 MG PO SCH ×2 (15:06→18:19)
[2017-05-02] MEDS: oxyCODONE/Acetamin 5/325 MG* TAB PO PRN ×3 (16:15→23:01)
[2017-05-02] MEDS: ceFAZolin 1 GM VIAL(*) 1 GM in NS 0.9% 50 ML* 50 ML IVPB SCH (17:25)
--- NOTE | 2017-05-02 18:19 | OP ---
OPERATIVE REPORT: DATE OF OPERATION: 05/02/17. DATE OF : 49 SURGEON: Paulette Malik MD. CRYPTOLOGIC LINGUIST: DONNELL Dick. ANESTHESIOLOGIST: Dr. Vidal. ANESTHESIA: General. PRE-OP DIAGNOSIS: Right hip subtrochanteric fracture. POSTOP DIAGNOSIS: Right hip subtrochanteric fracture. OPERATIVE PROCEDURE: Right hip open reduction with intramedullary nail. COMPLICATIONS: None. ESTIMATED BLOOD LOSS: 300 cc. IMPLANTS USED: One Synthes TFNA short nail with the 80-mm Helical blade and the appropriate length distal interlock screw. INDICATIONS: Pooja Leblanc is a 71-year-old female who sustained injury to her right hip on Thursday. She did not present to the ER until last evening on May 01 when she was diagnosed with a comminuted subtrochanteric hip fracture. She also has a previous history of a left hip fracture that was nondisplaced, treated by my partner Dr. Mcgee. After an extensive discussion of the risks and benefits of operative versus nonoperative treatment, she and her family elected to proceed with operative treatment. She was admitted to the medicine team and medically optimized for surgery. DESCRIPTION OF PROCEDURE: The patient was greeted in the preoperative area by the attending surgeon. Correct extremity was marked and consent was confirmed. The patient was brought back to the operating suite where she was placed in the supine position on the operating table. She was brought down the hospital bed and she underwent general anesthesia with endotracheal intubation after which she was moved to the operative traction bed. She was placed appropriately. All bony prominences were padded. A well padded perineal post was placed. The left leg, nonoperative leg, was secured in a well leg hernandez and the right leg was placed in gentle traction. The patient did have a flexion contracture of the knee, so gentle traction was applied. A closed reduction was then done with C-arm using traction as well as the fracture table. The subtrochanteric fracture was somewhat challenging and in varus; therefore, decision was made to have a provisional alignment and then open reduced this. The right hip was prepped and draped in usual sterile fashion with chlorhexidine soap scrub, and alcohol wipe, and a final prep with ChloraPrep. After appropriate surgical pause indicating site, side, procedure, and administration of antibiotics, the incision was made laterally about the lateral aspect of the hip approximately 3 cm proximal to the trochanter to about 5 cm distal was then made through soft tissues. There is evidence of prior hematoma in the tissues as this was an old fracture. The soft tissues were carefully dissected. IT band was identified and sharply incised. At this point, a retractor was placed around the most distal fragment to allow to pull some lateral traction as well as some fine traction was applied to the leg. This helped distract and better align the fracture fragment. The greater trochanter was unstable with an extra piece here. Care was made to try to protect that piece and allow it to help line up. Once an acceptable reduction was then made, the starting guidewire was then placed through the appropriate position along the intact piece of the medial portion of the greater trochanter. The guidewire was placed and confirmed under AP and lateral views. Then, a 16 mm starting reamer was then placed and a care was taken to pass the reamer medially to facilitate nail passage in the appropriate trajectory. At this point, a 15 mm reamer was then used to open the canal proximally, but the remainder of the opening was done using the awl, so that the trajectory of the ball-tip guidewire was able to be controlled more carefully. The canal was then reamed, beginning with a size 9 reamer and then all the way to 11.5 to allow for a 10 nail. There is appropriate amount of chatter that was identified. At this point, the short nail was then brought into the field and carefully placed with distal traction, axial traction on the leg, gentle pressure on the loose trochanteric piece with a ball-tip device and traction on the distal piece to allow it to line up well. The nail was then carefully placed, which was found to be in acceptable alignment with traction maintained. The proximal interlock guide device was then assembled and after appropriate identification of the guide pin on the AP and lateral views, to make sure it was low and appropriately placed in the head, this was measured and found to be in 80 degrees. The lateral cortex was drilled and the reamer and then 80 mm was reamed. The blade was then advanced with excellent purchase. There was a derotation screw to prevent any rotation. Images were obtained and showed acceptable alignment and then distal interlock was then placed with excellent purchase. The wounds were copiously irrigated with sterile saline. The wound was closed in layers with a 0 Vicryl for the fascia, 2-0 Vicryl for the skin and jermaine. 30 cc of 0.5% Marcaine were injected about the wound. Sterile dressings were applied. She was awoken from anesthesia, transferred to PACU in stable condition. POSTOPERATIVE PLAN: She will be touchdown weightbearing. She will begin therapy tomorrow. She will be on Lovenox for 6 weeks for DVT ppx. She will need 24 hours of post op abx. I will follow her closely to watch for cutout and she will be discharged to rehab facility when she is stable. [id number]/[facility] #: [id number] KODY
[2017-05-02] MEDS: Nicotine Inhaler* 10 MG AMP INH PRN ×2 (18:34→23:01)
[2017-05-02] MEDS: Mouth Piece, Nicotine* 1 EACH CARTRIDGE INH PRN (18:34)
[2017-05-02] MEDS: Atorvastatin* 10 MG TAB PO SCH (20:02)
[2017-05-02] MEDS: Docusate CAP* 100 MG PO SCH (20:02)
[2017-05-02] MEDS: PERPHENAZINE 8 MG PO SCH (20:03)
[2017-05-03] MEDS: oxyCODONE/Acetamin 5/325 MG* TAB PO PRN ×3 (01:50→07:48)
[2017-05-03] MEDS: ceFAZolin 1 GM VIAL(*) 1 GM in NS 0.9% 50 ML* 50 ML IVPB SCH ×2 (01:50→09:15)
[2017-05-03] MEDS: Calcium Carbonate TAB* 1250 MG (CALCIUM 500 MG) PO SCH ×2 (07:47→20:56)
[2017-05-03] MEDS: FLUoxetine CAP* 20 MG PO SCH (07:47)
[2017-05-03] MEDS: Gabapentin CAP(*) 300 MG PO SCH ×3 (07:47→20:56)
[2017-05-03] MEDS: Multivitamins/Minerals TAB PO SCH (07:48)
[2017-05-03] MEDS: QUEtiapine TAB* 100 MG PO SCH ×2 (07:48→20:56)
[2017-05-03] MEDS: Docusate CAP* 100 MG PO SCH ×2 (07:48→20:56)
--- NOTE | 2017-05-03 08:20 | PN ---
Progress Note - Progress Note Date of Service: 05/03/17 Note: Pt seen and examined. She is in pain and uncomfortable. Denies numbness and tingling. Resting in bed. on O2 Temp Pulse Resp BP Pulse Ox 98.6 F 89 18 126/47 100 05/03/17 03:25 05/03/17 03:25 05/03/17 07:48 05/03/17 03:25 05/03/17 03:25 NAD. right leg dressing in place with mild strike through. uncomfortable about incision. calf soft, nontender. able to DF/PF foot. SILT grossly distally with brisk cap refill. Laboratory Results - last 24 hr 05/02/17 05/02/17 13:47 13:47 WBC 7.9 RBC 2.33 L Hgb 7.1 L Hct 21 L MCV 92 MCH 31 MCHC 33 RDW 14 Plt Count 192 MPV 9 Neut % (Auto) 90.7 H Lymph % (Auto) 6.7 L [place] % (Auto) 2.1 Eos % (Auto) 0.1 Baso % (Auto) 0.4 Absolute Neuts (auto) 7.1 Absolute Lymphs (auto) 0.5 L Absolute Monos (auto) 0.2 Absolute Eos (auto) 0 Absolute Basos (auto) 0 Absolute Nucleated RBC 0 Nucleated RBC % 0 Sodium 139 Potassium 3.6 Chloride 110 Carbon Dioxide 26 Anion Gap 3 BUN 20 Creatinine 0.59 Est GFR ( Amer) 130.0 Est GFR (Non-Af Amer) 101.1 BUN/Creatinine Ratio 33.9 H Glucose 153 H Calcium 7.6 L A/P POD#1 from R hip TFN for reverse obliquity fracture TDWB analgesia. will transition to oxy IR 5-15 mg q3 hours prn pain with tylenol lovenox for dvt ppx PT/OT dispo pending. dressing change tomorrow
[2017-05-03] MEDS ORDERED: oxyCODONE TAB* 5 MG TAB PO PRN (08:21)
[2017-05-03] MEDS: Acetaminophen TAB* 325 MG PO SCH ×2 (08:28→17:15)
[2017-05-03 08:50] LABS: Hematocrit 17 % (35-47)
[2017-05-03 09:01] LABS: Comments Flag Yes
[2017-05-03 09:02] LABS: BUN/Creatinine Ratio 25.4 (8-20); Calcium 7.6 mg/dL (8.6-10.3); EGFR Non-African American 101.1 (>60); Potassium 3.5 mmol/L (3.5-5.0)
[2017-05-03 09:06] LABS: Hemoglobin 5.6 g/dl (12.0-16.0)
[2017-05-03] MEDS ORDERED: Morphine INJ* 4 MG/ML 1 ML CARPUJECT ONE (09:19)
[2017-05-03] MEDS: Morphine INJ* 4 MG/ML 1 ML CARPUJECT IV PRN (09:20)
[2017-05-03] MEDS ORDERED: Morphine INJ* 2 MG/ML 1 ML SYRINGE (TWO MG - NEW SYRINGE VERSION) IV PRN (09:36)
--- NOTE | 2017-05-03 10:23 | PN ---
Subjective Date of Service: 05/03/17 Interval History: Patient seen this morning. Reports pain "at incision", controlled with pain medications. Good appetite this morning. [place] in place. No BM yet. Explained need for blood transfusion. Family History: Unchanged from Admission Social History: Unchanged from Admission Past Medical History: Unchanged from Admission Objective Active Medications: Acetaminophen (Tylenol Tab*) 975 mg PO Q8H [facility] Last Admin: 05/03/17 08:28 Dose: Not Given Albuterol (Ventolin Hfa Inhaler*) 1 puff INH Q6HR PRN PRN Reason: SHORTNESS OF BREATH Atorvastatin Calcium (Lipitor*) 10 mg PO BEDTIME [facility] Last Admin: 05/02/17 20:02 Dose: 10 mg Bisacodyl (Dulcolax Supp*) 10 mg AR DAILY PRN PRN Reason: constipation Calcium Carbonate (Calcium Carbonate Tab*) 1,250 mg PO BID [facility] Last Admin: 05/03/17 07:47 Dose: 1,250 mg Device (Nicotine Mouth Piece*) 1 each INH .USE WITH NICOTROL PRN PRN Reason: CRAVING Last Admin: 05/02/17 18:34 Dose: 1 each Diphenhydramine HCl (Benadryl Po*) 25 mg PO Q6H PRN PRN Reason: itching Docusate Sodium (Colace Cap*) 100 mg PO BID PRN PRN Reason: CONSTIPATION Last Admin: 05/01/17 22:51 Dose: 100 mg Docusate Sodium (Colace Cap*) 100 mg PO BID [facility] Last Admin: 05/03/17 07:48 Dose: 100 mg Enoxaparin Sodium (Lovenox(*)) 40 mg SUBCUT 1400 [facility] Fluoxetine HCl (Prozac Cap*) 20 mg PO DAILY [facility] Last Admin: 05/03/17 07:47 Dose: 20 mg Gabapentin (Neurontin Cap(*)) 600 mg PO TID [facility] Last Admin: 05/03/17 07:47 Dose: 600 mg Sodium Chloride (Ns 0.9% 1000 Ml*) 1,000 mls @ 75 mls/hr IV PER RATE [facility] Lactated Ringer's (Lactated Ringers 1000 Ml Bag*) 1,000 mls @ 125 mls/hr IV PER RATE [facility] Last Admin: 05/02/17 17:24 Dose: 125 mls/hr Lactated Ringer's (Lactated Ringers 1000 Ml Bag*) 1,000 mls @ 100 mls/hr IV PER RATE [facility] Last Admin: 05/02/17 21:28 Dose: 100 mls/hr Lactulose (Lactulose*) 30 ml PO Q6H PRN PRN Reason: constipation Levalbuterol HCl (Xopenex 0.63mg/3ml Neb*) 0.63 mg INH ONCE PRN PRN Reason: SOB/WHEEZING Stop: 05/03/17 10:46 Magnesium Hydroxide (Milk Of Magntamiko Liq*) 30 ml PO Q6H PRN PRN Reason: constipation Morphine Sulfate (Morphine Inj (Syringe)*) 2 mg IV Q2H PRN PRN Reason: PAIN Multivitamins/Minerals (Theragran/Minerals Tab*) 1 tab PO DAILY [facility] Last Admin: 05/03/17 07:48 Dose: 1 tab Nicotine (Nicotine Inhaler*) 10 mg INH Q2H PRN PRN Reason: CRAVING Last Admin: 05/02/17 23:01 Dose: 10 mg Ondansetron HCl (Zofran Inj*) 4 mg IV Q6H PRN PRN Reason: nausea Oxycodone HCl (Roxycodone Tab*) 5 mg PO Q3H PRN PRN Reason: PAIN - MILD Oxycodone HCl (Roxycodone Tab*) 10 mg PO Q3H PRN PRN Reason: PAIN - MODERATE Oxycodone HCl (Roxycodone Tab*) 15 mg PO Q3H PRN PRN Reason: PAIN - MODERATE TO SEVERE Perphenazine (Perphenazine (Nf)) 8 mg PO BEDTIME [facility] PRN Reason: Protocol Last Admin: 05/02/17 20:03 Dose: 8 mg Quetiapine Fumarate (Seroquel Tab*) 200 mg PO BID [facility] Last Admin: 05/03/17 07:48 Dose: 200 mg Vital Signs 05/02/17 05/02/17 05/02/17 11:17 11:20 11:25 Temperature 98.1 F 98.1 F Pulse Rate 80 85 84 Respiratory 16 15 15 Rate Blood Pressure 113/49 118/44 113/30 (mmHg) O2 Sat by Pulse 95 94 94 Oximetry 05/02/17 05/02/17 05/02/17 14:42 16:15 16:22 Temperature 98.4 F 97.9 F Pulse Rate 84 90 Respiratory 14 16 15 Rate Blood Pressure 129/55 135/64 (mmHg) O2 Sat by Pulse 100 100 Oximetry 05/03/17 05/03/17 05/03/17 05:20 07:35 07:47 Temperature 99.0 F Pulse Rate 90 Respiratory 14 16 18 Rate Blood Pressure 135/47 (mmHg) O2 Sat by Pulse 100 Oximetry Oxygen Devices in Use Now: Nasal Cannula Appearance: Elderly, F, laying in bed in NAD Eyes: No Scleral Icterus Ears/Nose/Mouth/Throat: Mucous Membranes Moist Neck: NL Appearance and Movements; NL JVP Respiratory: Symmetrical Chest Expansion and Respiratory Effort, Clear to Auscultation Cardiovascular: NL Sounds; No Murmurs; No JVD, RRR Abdominal: NL Sounds; No Tenderness; No Distention Lymphatic: No Cervical Adenopathy Extremities: - - R hip with dressing in place, c/d/i Skin: No Rash or Ulcers Neurological: Alert and Oriented x 3 Lines/Tubes/Other Access: Clean, Dry and Intact [place] Result Diagrams: 05/03/17 08:07 05/03/17 08:07 Additional Lab and Data: Lab Results 05/01/17 05/01/17 05/01/17 Range/Units 17:35 17:35 17:35 WBC 6.4 (3.5-10.8) 10^3/ul RBC 3.62 L (4.0-5.4) 10^6/ul Hgb 11.0 L (12.0-16.0) g/dl Hct 33 L (35-47) % MCV 90 (80-97) fL MCH 30 (27-31) pg MCHC 34 (31-36) g/dl RDW 14 (10.5-15) % Plt Count 268 (150-450) 10^3/ul MPV 8 (7.4-10.4) um3 Neut % (Auto) 55.3 (38-83) % Lymph % (Auto) 31.9 (25-47) % [place] % (Auto) 9.4 H (1-9) % Eos % (Auto) 2.1 (0-6) % Baso % (Auto) 1.3 (0-2) % Absolute Neuts (auto) 3.5 (1.5-7.7) 10^3/ul Absolute Lymphs (auto) 2.0 (1.0-4.8) 10^3/ul Absolute Monos (auto) 0.6 (0-0.8) 10^3/ul Absolute Eos (auto) 0.1 (0-0.6) 10^3/ul Absolute Basos (auto) 0.1 (0-0.2) 10^3/ul Absolute Nucleated RBC 0 10^3/ul Nucleated RBC % 0 INR (Anticoag Therapy) 0.97 (0.89-1.11) APTT 25.9 L (26.0-36.3) seconds Sodium 142 (133-145) mmol/L Potassium 3.7 (3.5-5.0) mmol/L Chloride 107 (101-111) mmol/L Carbon Dioxide 28 (22-32) mmol/L Anion Gap 7 (2-11) mmol/L BUN 25 H (6-24) mg/dL Creatinine 0.72 (0.51-0.95) mg/dL Est GFR ( Amer) 103.3 (>60) Est GFR (Non-Af Amer) 80.3 (>60) BUN/Creatinine Ratio 34.7 H (8-20) Glucose 129 H (70-100) mg/dL Lactic Acid (0.5-2.0) mmol/L Calcium 9.0 (8.6-10.3) mg/dL Total Bilirubin 0.50 (0.2-1.0) mg/dL AST 13 (13-39) U/L ALT 13 (7-52) U/L Alkaline Phosphatase 76 (34-104) U/L Total Creatine Kinase 136 (10-223) U/L Troponin I 0.00 (<0.04) ng/mL Total Protein 6.1 L (6.4-8.9) g/dL Albumin 3.7 (3.2-5.2) g/dL Globulin 2.4 (2-4) g/dL Albumin/Globulin Ratio 1.5 (1-3) Blood Type Antibody Screen 05/01/17 05/01/17 Range/Units 17:35 17:35 WBC (3.5-10.8) 10^3/ul RBC (4.0-5.4) 10^6/ul Hgb (12.0-16.0) g/dl Hct (35-47) % MCV (80-97) fL MCH (27-31) pg MCHC (31-36) g/dl RDW (10.5-15) % Plt Count (150-450) 10^3/ul MPV (7.4-10.4) um3 Neut % (Auto) (38-83) % Lymph % (Auto) (25-47) % [place] % (Auto) (1-9) % Eos % (Auto) (0-6) % Baso % (Auto) (0-2) % Absolute Neuts (auto) (1.5-7.7) 10^3/ul Absolute Lymphs (auto) (1.0-4.8) 10^3/ul Absolute Monos (auto) (0-0.8) 10^3/ul Absolute Eos (auto) (0-0.6) 10^3/ul Absolute Basos (auto) (0-0.2) 10^3/ul Absolute Nucleated RBC 10^3/ul Nucleated RBC % INR (Anticoag Therapy) (0.89-1.11) APTT (26.0-36.3) seconds Sodium (133-145) mmol/L Potassium (3.5-5.0) mmol/L Chloride (101-111) mmol/L Carbon Dioxide (22-32) mmol/L Anion Gap (2-11) mmol/L BUN (6-24) mg/dL Creatinine (0.51-0.95) mg/dL Est GFR ( Amer) (>60) Est GFR (Non-Af Amer) (>60) BUN/Creatinine Ratio (8-20) Glucose (70-100) mg/dL Lactic Acid 1.1 (0.5-2.0) mmol/L Calcium (8.6-10.3) mg/dL Total Bilirubin (0.2-1.0) mg/dL AST (13-39) U/L ALT (7-52) U/L Alkaline Phosphatase (34-104) U/L Total Creatine Kinase (10-223) U/L Troponin I (<0.04) ng/mL Total Protein (6.4-8.9) g/dL Albumin (3.2-5.2) g/dL Globulin (2-4) g/dL Albumin/Globulin Ratio (1-3) Blood Type A Positive Antibody Screen Negative Assess/Plan/Problems-Billing Assessment: R intertrochanteric hip fx s/p IM nail placement in a 71 yo F with hx of COPD, HLD, depression, anxiety and recent L hip fx s/p surgical repair - Patient Problems (1) Hip fracture, right Current Visit: Yes Comment: Appreciate Orthopedic assistance. S/P IM nail placement on 05/[address] Malik. Analgesia. PT. H/H daily (2) Postoperative anemia Current Visit: Yes Comment: Tranfuse 2 units this morning. Monitor daily. (3) COPD (chronic obstructive pulmonary disease) Current Visit: No Comment: No signs of exacerbation at this time Continue PRN nebs/inhalers (4) Anxiety and depression Current Visit: No Comment: Continue fluoxetine, gabapentin, seroquel and perphenazine (5) DVT prophylaxis Current Visit: No Comment: Lovenox
[2017-05-03] MEDS: oxyCODONE TAB* 5 MG TAB PO PRN ×4 (10:56→22:25)
[2017-05-03] MEDS: Enoxaparin(*) 40 MG/0.4 ML SYR SUBCUT SCH (13:59)
[2017-05-03] MEDS: Nicotine Inhaler* 10 MG AMP INH PRN ×3 (17:15→22:29)
[2017-05-03 19:02] LABS: Hematocrit 26 % (35-47); Hemoglobin 9.1 g/dl (12.0-16.0)
[2017-05-03] MEDS: Magnesium Hydroxide LIQ* 30 ML UDC PO PRN (19:14)
[2017-05-03] MEDS: Atorvastatin* 10 MG TAB PO SCH (20:56)
[2017-05-03] MEDS: PERPHENAZINE 8 MG PO SCH (20:56)
[2017-05-04] MEDS: Acetaminophen TAB* 325 MG PO SCH ×3 (00:57→17:39)
[2017-05-04] MEDS: oxyCODONE TAB* 5 MG TAB PO PRN ×5 (04:50→20:36)
[2017-05-04 07:16] LABS: Hematocrit 27 % (35-47); Hemoglobin 9.2 g/dl (12.0-16.0)
[2017-05-04] MEDS: Mouth Piece, Nicotine* 1 EACH CARTRIDGE INH PRN (07:33)
[2017-05-04] MEDS: Nicotine Inhaler* 10 MG AMP INH PRN (07:33)
--- NOTE | 2017-05-04 07:48 | PN ---
Progress Note - Progress Note Date of Service: 05/04/17 SOAP: Subjective: Pt OOB to chair with minimal complaints of pain Objective: Vital Signs Temp Pulse Resp BP Pulse Ox 98.6 F 81 16 129/47 94 05/04/17 07:37 05/04/17 07:37 05/04/17 07:37 05/04/17 07:37 05/04/17 07:37 Laboratory Last Values WBC 7.9 10^3/ul (3.5-10.8) 05/02/17 13:47 RBC 2.33 10^6/ul (4.0-5.4) L 05/02/17 13:47 Hgb 9.2 g/dl (12.0-16.0) L 05/04/17 06:46 Hct 27 % (35-47) L 05/04/17 06:46 MCV 92 fL (80-97) 05/02/17 13:47 MCH 31 pg (27-31) 05/02/17 13:47 MCHC 33 g/dl (31-36) 05/02/17 13:47 RDW 14 % (10.5-15) 05/02/17 13:47 Plt Count 192 10^3/ul (150-450) 05/02/17 13:47 MPV 9 um3 (7.4-10.4) 05/02/17 13:47 Neut % (Auto) 90.7 % (38-83) H 05/02/17 13:47 Lymph % (Auto) 6.7 % (25-47) L 05/02/17 13:47 [place] % (Auto) 2.1 % (1-9) 05/02/17 13:47 Eos % (Auto) 0.1 % (0-6) 05/02/17 13:47 Baso % (Auto) 0.4 % (0-2) 05/02/17 13:47 Absolute Neuts (auto) 7.1 10^3/ul (1.5-7.7) 05/02/17 13:47 Absolute Lymphs (auto) 0.5 10^3/ul (1.0-4.8) L 05/02/17 13:47 Absolute Monos (auto) 0.2 10^3/ul (0-0.8) 05/02/17 13:47 Absolute Eos (auto) 0 10^3/ul (0-0.6) 05/02/17 13:47 Absolute Basos (auto) 0 10^3/ul (0-0.2) 05/02/17 13:47 Absolute Nucleated RBC 0 10^3/ul 05/02/17 13:47 Nucleated RBC % 0 05/02/17 13:47 INR (Anticoag Therapy) 0.97 (0.89-1.11) 05/01/17 17:35 APTT 25.9 seconds (26.0-36.3) L 05/01/17 17:35 Sodium 138 mmol/L (133-145) 05/03/17 08:07 Potassium 3.5 mmol/L (3.5-5.0) 05/03/17 08:07 Chloride 107 mmol/L (101-111) 05/03/17 08:07 Carbon Dioxide 29 mmol/L (22-32) 05/03/17 08:07 Anion Gap 2 mmol/L (2-11) 05/03/17 08:07 BUN 15 mg/dL (6-24) 05/03/17 08:07 Creatinine 0.59 mg/dL (0.51-0.95) 05/03/17 08:07 Est GFR ( Amer) 130.0 (>60) 05/03/17 08:07 Est GFR (Non-Af Amer) 101.1 (>60) 05/03/17 08:07 BUN/Creatinine Ratio 25.4 (8-20) H 05/03/17 08:07 Glucose 101 mg/dL (70-100) H 05/03/17 08:07 Lactic Acid 1.1 mmol/L (0.5-2.0) 05/01/17 17:35 Calcium 7.6 mg/dL (8.6-10.3) L 05/03/17 08:07 Total Bilirubin 0.50 mg/dL (0.2-1.0) 05/01/17 17:35 AST 13 U/L (13-39) 05/01/17 17:35 ALT 13 U/L (7-52) 05/01/17 17:35 Alkaline Phosphatase 76 U/L (34-104) 05/01/17 17:35 Total Creatine Kinase 136 U/L (10-223) 05/01/17 17:35 Troponin I 0.00 ng/mL (<0.04) 05/01/17 17:35 Total Protein 6.1 g/dL (6.4-8.9) L 05/01/17 17:35 Albumin 3.7 g/dL (3.2-5.2) 05/01/17 17:35 Globulin 2.4 g/dL (2-4) 05/01/17 17:35 Albumin/Globulin Ratio 1.5 (1-3) 05/01/17 17:35 Urine Color Yellow 05/01/17 22:30 Urine Appearance Clear 05/01/17 22:30 Urine pH 5.0 (5-9) 05/01/17 22:30 Ur Specific [place] 1.020 (1.010-1.030) 05/01/17 22:30 Urine Protein Negative (Negative) 05/01/17 22:30 Urine Ketones Trace (Negative) H 05/01/17 22:30 Urine Blood 1+ (Negative) H 05/01/17 22:30 Urine Nitrate Negative (Negative) 05/01/17 22:30 Urine Bilirubin Negative (Negative) 05/01/17 22:30 Urine Urobilinogen Negative (Negative) 05/01/17 22:30 Ur Leukocyte Esterase 1+ (Negative) H 05/01/17 22:30 Urine WBC (Auto) 3+(>20/hpf) (Absent) H 05/01/17 22:30 Urine RBC (Auto) 1+(3-5/hpf) (Absent) H 05/01/17 22:30 Urine Bacteria 3+ (Absent) H 05/01/17 22:30 Urine Glucose Negative (Negative) 05/01/17 22:30 Blood Type A Positive 05/01/17 17:35 Antibody Screen Negative 05/01/17 17:35 Crossmatch See Detail 05/01/17 17:35 incision: c/d; dressing changed PE: NVI Assessment: S/P right TFN Plan: 1) PT/OT- TDWB 2) Lovenox for DVT prophylaxis 3) hospitalist co-managing 4) will continue to follow
--- NOTE | 2017-05-04 08:11 | PN ---
Subjective Date of Service: 05/04/17 Interval History: Pt is feeling ok. She states she has some pain in her R hip. She states she slept in the chair last night as it is more comfortable than the bed. She denies any SOB. Family History: Unchanged from Admission Social History: Unchanged from Admission Past Medical History: Unchanged from Admission Objective Active Medications: Acetaminophen (Tylenol Tab*) 975 mg PO Q8H [facility] Last Admin: 05/04/17 00:57 Dose: 975 mg Albuterol (Ventolin Hfa Inhaler*) 1 puff INH Q6HR PRN PRN Reason: SHORTNESS OF BREATH Atorvastatin Calcium (Lipitor*) 10 mg PO BEDTIME [facility] Last Admin: 05/03/17 20:56 Dose: 10 mg Bisacodyl (Dulcolax Supp*) 10 mg UT DAILY PRN PRN Reason: constipation Calcium Carbonate (Calcium Carbonate Tab*) 1,250 mg PO BID [facility] Last Admin: 05/03/17 20:56 Dose: 1,250 mg Device (Nicotine Mouth Piece*) 1 each INH .USE WITH NICOTROL PRN PRN Reason: CRAVING Last Admin: 05/04/17 07:33 Dose: 1 each Diphenhydramine HCl (Benadryl Po*) 25 mg PO Q6H PRN PRN Reason: itching Docusate Sodium (Colace Cap*) 100 mg PO BID PRN PRN Reason: CONSTIPATION Last Admin: 05/01/17 22:51 Dose: 100 mg Docusate Sodium (Colace Cap*) 100 mg PO BID [facility] Last Admin: 05/03/17 20:56 Dose: 100 mg Enoxaparin Sodium (Lovenox(*)) 40 mg SUBCUT 1400 [facility] Last Admin: 05/03/17 13:59 Dose: 40 mg Fluoxetine HCl (Prozac Cap*) 20 mg PO DAILY [facility] Last Admin: 05/03/17 07:47 Dose: 20 mg Gabapentin (Neurontin Cap(*)) 600 mg PO TID [facility] Last Admin: 05/03/17 20:56 Dose: 600 mg Sodium Chloride (Ns 0.9% 1000 Ml*) 1,000 mls @ 75 mls/hr IV PER RATE [facility] Lactated Ringer's (Lactated Ringers 1000 Ml Bag*) 1,000 mls @ 125 mls/hr IV PER RATE [facility] Last Admin: 05/02/17 17:24 Dose: 125 mls/hr Lactated Ringer's (Lactated Ringers 1000 Ml Bag*) 1,000 mls @ 100 mls/hr IV PER RATE [facility] Last Admin: 05/02/17 21:28 Dose: 100 mls/hr Lactulose (Lactulose*) 30 ml PO Q6H PRN PRN Reason: constipation Magnesium Hydroxide (Milk Of Magnesia Liq*) 30 ml PO Q6H PRN PRN Reason: constipation Last Admin: 05/03/17 19:14 Dose: 30 ml Morphine Sulfate (Morphine Inj (Syringe)*) 2 mg IV Q2H PRN PRN Reason: PAIN Multivitamins/Minerals (Theragran/Minerals Tab*) 1 tab PO DAILY [facility] Last Admin: 05/03/17 07:48 Dose: 1 tab Nicotine (Nicotine Inhaler*) 10 mg INH Q2H PRN PRN Reason: CRAVING Last Admin: 05/04/17 07:33 Dose: 10 mg Ondansetron HCl (Zofran Inj*) 4 mg IV Q6H PRN PRN Reason: nausea Oxycodone HCl (Roxycodone Tab*) 5 mg PO Q3H PRN PRN Reason: PAIN - MILD Oxycodone HCl (Roxycodone Tab*) 10 mg PO Q3H PRN PRN Reason: PAIN - MODERATE Last Admin: 05/04/17 07:51 Dose: 10 mg Oxycodone HCl (Roxycodone Tab*) 15 mg PO Q3H PRN PRN Reason: PAIN - MODERATE TO SEVERE Last Admin: 05/03/17 10:56 Dose: 15 mg Perphenazine (Perphenazine (Nf)) 8 mg PO BEDTIME [facility] PRN Reason: Protocol Last Admin: 05/03/17 20:56 Dose: 8 mg Quetiapine Fumarate (Seroquel Tab*) 200 mg PO BID [facility] Last Admin: 05/03/17 20:56 Dose: 200 mg Trimethoprim/Sulfamethoxazole (Bactrim Ds 800/160 Tab*) 1 tab PO BID [facility] Vital Signs 05/03/17 05/03/17 05/03/17 09:20 09:37 09:38 Temperature Pulse Rate Respiratory 18 18 18 Rate Blood Pressure (mmHg) O2 Sat by Pulse Oximetry 05/03/17 05/03/17 05/03/17 09:43 10:20 10:29 Temperature 99.8 F Pulse Rate 98 Respiratory 21 20 Rate Blood Pressure 112/46 (mmHg) O2 Sat by Pulse 98 100 Oximetry 05/03/17 05/03/17 05/03/17 10:56 11:50 12:56 Temperature 98.1 F Pulse Rate 86 Respiratory 18 16 18 Rate Blood Pressure 98/42 (mmHg) O2 Sat by Pulse 99 Oximetry 05/03/17 05/03/17 05/03/17 13:59 14:00 15:17 Temperature 99.1 F Pulse Rate 84 Respiratory 18 18 21 Rate Blood Pressure 141/66 (mmHg) O2 Sat by Pulse 100 Oximetry 05/03/17 05/03/17 05/03/17 15:59 16:00 19:14 Temperature Pulse Rate Respiratory 16 16 16 Rate Blood Pressure (mmHg) O2 Sat by Pulse 100 Oximetry 05/03/17 05/03/17 05/03/17 19:15 19:23 20:56 Temperature 98.4 F Pulse Rate 89 Respiratory 17 17 15 Rate Blood Pressure 139/48 (mmHg) O2 Sat by Pulse 91 Oximetry 05/03/17 05/03/17 05/03/17 20:57 22:25 22:35 Temperature Pulse Rate Respiratory 15 15 15 Rate Blood Pressure (mmHg) O2 Sat by Pulse Oximetry 05/03/17 05/04/17 05/04/17 23:30 00:21 00:25 Temperature 99.2 F Pulse Rate 91 Respiratory 16 15 Rate Blood Pressure 158/62 (mmHg) O2 Sat by Pulse 95 97 Oximetry 05/04/17 05/04/17 05/04/17 03:30 04:50 06:25 Temperature 98.8 F Pulse Rate 91 Respiratory 14 15 12 Rate Blood Pressure 151/64 (mmHg) O2 Sat by Pulse 92 Oximetry 05/04/17 05/04/17 07:37 07:51 Temperature 98.6 F Pulse Rate 81 Respiratory 16 18 Rate Blood Pressure 129/47 (mmHg) O2 Sat by Pulse 94 Oximetry Oxygen Devices in Use Now: Nasal Cannula - 3L-94% Appearance: Elderly female sitting in a recliner chair, NAD Eyes: No Scleral Icterus Ears/Nose/Mouth/Throat: Mucous Membranes Moist Respiratory: Symmetrical Chest Expansion and Respiratory Effort, Clear to Auscultation - diminished breath sounds in all lung wong Cardiovascular: NL Sounds; No Murmurs; No JVD, RRR, - - 1+ RLE Abdominal: NL Sounds; No Tenderness; No Distention Extremities: No Clubbing, Cyanosis Skin: No Nodules or Sclerosis, - - incision not inspected by myselft-dressing just changed by ortho PA Neurological: Alert and Oriented x 3 Result Diagrams: 05/04/17 06:46 05/03/17 08:07 Additional Lab and Data: Lab Results 05/01/17 05/01/17 05/01/17 Range/Units 17:35 17:35 17:35 WBC 6.4 (3.5-10.8) 10^3/ul RBC 3.62 L (4.0-5.4) 10^6/ul Hgb 11.0 L (12.0-16.0) g/dl Hct 33 L (35-47) % MCV 90 (80-97) fL MCH 30 (27-31) pg MCHC 34 (31-36) g/dl RDW 14 (10.5-15) % Plt Count 268 (150-450) 10^3/ul MPV 8 (7.4-10.4) um3 Neut % (Auto) 55.3 (38-83) % Lymph % (Auto) 31.9 (25-47) % [place] % (Auto) 9.4 H (1-9) % Eos % (Auto) 2.1 (0-6) % Baso % (Auto) 1.3 (0-2) % Absolute Neuts (auto) 3.5 (1.5-7.7) 10^3/ul Absolute Lymphs (auto) 2.0 (1.0-4.8) 10^3/ul Absolute Monos (auto) 0.6 (0-0.8) 10^3/ul Absolute Eos (auto) 0.1 (0-0.6) 10^3/ul Absolute Basos (auto) 0.1 (0-0.2) 10^3/ul Absolute Nucleated RBC 0 10^3/ul Nucleated RBC % 0 INR (Anticoag Therapy) 0.97 (0.89-1.11) APTT 25.9 L (26.0-36.3) seconds Sodium 142 (133-145) mmol/L Potassium 3.7 (3.5-5.0) mmol/L Chloride 107 (101-111) mmol/L Carbon Dioxide 28 (22-32) mmol/L Anion Gap 7 (2-11) mmol/L BUN 25 H (6-24) mg/dL Creatinine 0.72 (0.51-0.95) mg/dL Est GFR ( Amer) 103.3 (>60) Est GFR (Non-Af Amer) 80.3 (>60) BUN/Creatinine Ratio 34.7 H (8-20) Glucose 129 H (70-100) mg/dL Lactic Acid (0.5-2.0) mmol/L Calcium 9.0 (8.6-10.3) mg/dL Total Bilirubin 0.50 (0.2-1.0) mg/dL AST 13 (13-39) U/L ALT 13 (7-52) U/L Alkaline Phosphatase 76 (34-104) U/L Total Creatine Kinase 136 (10-223) U/L Troponin I 0.00 (<0.04) ng/mL Total Protein 6.1 L (6.4-8.9) g/dL Albumin 3.7 (3.2-5.2) g/dL Globulin 2.4 (2-4) g/dL Albumin/Globulin Ratio 1.5 (1-3) Blood Type Antibody Screen 05/01/17 05/01/17 Range/Units 17:35 17:35 WBC (3.5-10.8) 10^3/ul RBC (4.0-5.4) 10^6/ul Hgb (12.0-16.0) g/dl Hct (35-47) % MCV (80-97) fL MCH (27-31) pg MCHC (31-36) g/dl RDW (10.5-15) % Plt Count (150-450) 10^3/ul MPV (7.4-10.4) um3 Neut % (Auto) (38-83) % Lymph % (Auto) (25-47) % [place] % (Auto) (1-9) % Eos % (Auto) (0-6) % Baso % (Auto) (0-2) % Absolute Neuts (auto) (1.5-7.7) 10^3/ul Absolute Lymphs (auto) (1.0-4.8) 10^3/ul Absolute Monos (auto) (0-0.8) 10^3/ul Absolute Eos (auto) (0-0.6) 10^3/ul Absolute Basos (auto) (0-0.2) 10^3/ul Absolute Nucleated RBC 10^3/ul Nucleated RBC % INR (Anticoag Therapy) (0.89-1.11) APTT (26.0-36.3) seconds Sodium (133-145) mmol/L Potassium (3.5-5.0) mmol/L Chloride (101-111) mmol/L Carbon Dioxide (22-32) mmol/L Anion Gap (2-11) mmol/L BUN (6-24) mg/dL Creatinine (0.51-0.95) mg/dL Est GFR ( Amer) (>60) Est GFR (Non-Af Amer) (>60) BUN/Creatinine Ratio (8-20) Glucose (70-100) mg/dL Lactic Acid 1.1 (0.5-2.0) mmol/L Calcium (8.6-10.3) mg/dL Total Bilirubin (0.2-1.0) mg/dL AST (13-39) U/L ALT (7-52) U/L Alkaline Phosphatase (34-104) U/L Total Creatine Kinase (10-223) U/L Troponin I (<0.04) ng/mL Total Protein (6.4-8.9) g/dL Albumin (3.2-5.2) g/dL Globulin (2-4) g/dL Albumin/Globulin Ratio (1-3) Blood Type A Positive Antibody Screen Negative Microbiology and Other Data: Microbiology 05/01/17 22:30 Urine Culture - Preliminary Urine Klebsiella Oxytoca Assess/Plan/Problems-Billing Ms Leblanc is a 71 yo F with a hx of COPD, HLD, depression, anxiety and recent L hip fx s/p surgical repair who presented to [facility] [place] sustaining another fall where sustained a R R intertrochanteric hip fx. - Patient Problems (1) Hip fracture, right Current Visit: Yes Status: Acute Code(s): S72.001A - FRACTURE OF UNSP PART OF NECK OF RIGHT FEMUR, INIT SNOMED Code(s): 784075401 Comment: S/P IM nail placement on 9/[address] Malik. Continue PT/OT-she will likely need STR. (2) Postoperative anemia Current Visit: Yes Status: Acute Code(s): D64.9 - ANEMIA, UNSPECIFIED SNOMED Code(s): 551147132 Comment: The patient recieved 2 units PRBC yesterday. This AM her H/H is improved. Continue to follow intermittently. (3) UTI due to Klebsiella species Current Visit: Yes Status: Acute Code(s): N39.0 - URINARY TRACT INFECTION, SITE NOT SPECIFIED; B96.1 - KLEBSIELLA PNEUMONIAE THE CAUSE OF DISEASES CLASSD [facility] SNOMED Code(s): 966175362001521 Comment: The patient's urine grew K oxytoca- will start bactrim DS 1 tab BID and await the urine culture. (4) HTN (hypertension) Current Visit: Yes Status: Chronic Code(s): I10 - ESSENTIAL (PRIMARY) HYPERTENSION SNOMED Code(s): 53772078 Comment: BP is under fair control not on any antihypertensives. Continue to monitor. (5) COPD (chronic obstructive pulmonary disease) Current Visit: Yes Status: Chronic Code(s): J44.9 - CHRONIC OBSTRUCTIVE PULMONARY DISEASE, UNSPECIFIED SNOMED Code(s): 09472091 Comment: No signs of exacerbation at this time. Continue PRN nebs/inhalers. (6) Anxiety and depression Current Visit: Yes Status: Chronic Code(s): F41.8 - OTHER SPECIFIED ANXIETY DISORDERS SNOMED Code(s): 975568899 Comment: Continue fluoxetine, gabapentin, seroquel and perphenazine. (7) Tobacco abuse Current Visit: No Status: Chronic Code(s): Z72.0 - TOBACCO USE SNOMED Code (s): 532664980 Comment: Continue nicotine inhaler. (8) DVT prophylaxis Current Visit: Yes Status: Acute Code(s): ZKQ2233 - SNOMED Code(s): 967485831 Comment: Lovenox (9) Full code status Current Visit: Yes Status: Acute Code(s): Z78.9 - OTHER SPECIFIED HEALTH STATUS SNOMED Code(s): 944845002
[2017-05-04] MEDS ORDERED: Albuterol HFA INHALER* 8 gm MDI INH PRN (08:12)
[2017-05-04] MEDS: FLUoxetine CAP* 20 MG PO SCH (09:46)
[2017-05-04] MEDS: Calcium Carbonate TAB* 1250 MG (CALCIUM 500 MG) PO SCH ×2 (09:47→20:37)
[2017-05-04] MEDS: Docusate CAP* 100 MG PO SCH ×2 (09:47→20:38)
[2017-05-04] MEDS: Gabapentin CAP(*) 300 MG PO SCH ×3 (09:47→20:27)
[2017-05-04] MEDS: QUEtiapine TAB* 100 MG PO SCH ×2 (09:48→20:38)
[2017-05-04] MEDS: Sulfamethox/Trimethoprim DS 800/160* TAB PO SCH ×2 (09:49→20:37)
[2017-05-04] MEDS: Multivitamins/Minerals TAB PO SCH (13:07)
[2017-05-04] MEDS: Enoxaparin(*) 40 MG/0.4 ML SYR SUBCUT SCH (14:36)
--- NOTE | 2017-05-04 15:10 | PN ---
Progress Note - Progress Note Date of Service: 05/04/17 Note: Pt seen and examined. Agree with PA note. Feeling better. Sitting in chair. Pain better controlled. Dressing changed today. Will continue to follow. Appreciate medicine care.
[2017-05-04] MEDS: Atorvastatin* 10 MG TAB PO SCH (20:37)
[2017-05-04] MEDS: PERPHENAZINE 8 MG PO SCH (20:38)
[2017-05-04] MEDS: Magnesium Hydroxide LIQ* 30 ML UDC PO PRN (20:39)
[2017-05-05] MEDS: Acetaminophen TAB* 325 MG PO SCH ×3 (01:07→17:59)
[2017-05-05] MEDS: oxyCODONE TAB* 5 MG TAB PO PRN ×6 (02:08→23:16)
[2017-05-05] MEDS: Nicotine Inhaler* 10 MG AMP INH PRN ×4 (02:11→17:55)
[2017-05-05 05:59] LABS: Hematocrit 26 % (35-47); Hemoglobin 8.8 g/dl (12.0-16.0); Mean Corpuscular HGB Conc 35 g/dl (31-36); Mean Corpuscular Hemoglobin 32 pg (27-31); Mean Corpuscular Volume 91 fL (80-97); Mean Platelet Volume 8 um3 (7.4-10.4); Red Blood Count 2.81 10^6/ul (4.0-5.4); Red Cell Distribution Width 14 % (10.5-15); White Blood Count 5.9 10^3/ul (3.5-10.8)
[2017-05-05] MEDS: Multivitamins/Minerals TAB PO SCH (07:36)
[2017-05-05] MEDS: QUEtiapine TAB* 100 MG PO SCH ×2 (07:36→21:59)
[2017-05-05] MEDS: Docusate CAP* 100 MG PO SCH ×2 (07:36→21:59)
[2017-05-05] MEDS: Gabapentin CAP(*) 300 MG PO SCH ×3 (07:36→21:59)
[2017-05-05] MEDS: Sulfamethox/Trimethoprim DS 800/160* TAB PO SCH ×2 (07:36→21:59)
[2017-05-05] MEDS: Calcium Carbonate TAB* 1250 MG (CALCIUM 500 MG) PO SCH ×2 (07:36→21:59)
[2017-05-05] MEDS: FLUoxetine CAP* 20 MG PO SCH (07:37)
--- NOTE | 2017-05-05 07:49 | PN ---
Progress Note - Progress Note Date of Service: 05/05/17 SOAP: Subjective: pt OOB to chair resting comfortably Objective: Vital Signs Temp Pulse Resp BP Pulse Ox 97.9 F 77 18 135/54 96 05/05/17 04:40 05/05/17 04:40 05/05/17 07:36 05/05/17 04:40 05/05/17 04:40 Laboratory Last Values WBC 5.9 10^3/ul (3.5-10.8) 05/05/17 05:50 RBC 2.81 10^6/ul (4.0-5.4) L 05/05/17 05:50 Hgb 8.8 g/dl (12.0-16.0) L 05/05/17 05:50 Hct 26 % (35-47) L 05/05/17 05:50 MCV 91 fL (80-97) 05/05/17 05:50 MCH 32 pg (27-31) H 05/05/17 05:50 MCHC 35 g/dl (31-36) 05/05/17 05:50 RDW 14 % (10.5-15) 05/05/17 05:50 Plt Count 191 10^3/ul (150-450) 05/05/17 05:50 MPV 8 um3 (7.4-10.4) 05/05/17 05:50 Neut % (Auto) 90.7 % (38-83) H 05/02/17 13:47 Lymph % (Auto) 6.7 % (25-47) L 05/02/17 13:47 [place] % (Auto) 2.1 % (1-9) 05/02/17 13:47 Eos % (Auto) 0.1 % (0-6) 05/02/17 13:47 Baso % (Auto) 0.4 % (0-2) 05/02/17 13:47 Absolute Neuts (auto) 7.1 10^3/ul (1.5-7.7) 05/02/17 13:47 Absolute Lymphs (auto) 0.5 10^3/ul (1.0-4.8) L 05/02/17 13:47 Absolute Monos (auto) 0.2 10^3/ul (0-0.8) 05/02/17 13:47 Absolute Eos (auto) 0 10^3/ul (0-0.6) 05/02/17 13:47 Absolute Basos (auto) 0 10^3/ul (0-0.2) 05/02/17 13:47 Absolute Nucleated RBC 0 10^3/ul 05/02/17 13:47 Nucleated RBC % 0 05/02/17 13:47 INR (Anticoag Therapy) 0.97 (0.89-1.11) 05/01/17 17:35 APTT 25.9 seconds (26.0-36.3) L 05/01/17 17:35 Sodium 138 mmol/L (133-145) 05/03/17 08:07 Potassium 3.5 mmol/L (3.5-5.0) 05/03/17 08:07 Chloride 107 mmol/L (101-111) 05/03/17 08:07 Carbon Dioxide 29 mmol/L (22-32) 05/03/17 08:07 Anion Gap 2 mmol/L (2-11) 05/03/17 08:07 BUN 15 mg/dL (6-24) 05/03/17 08:07 Creatinine 0.59 mg/dL (0.51-0.95) 05/03/17 08:07 Est GFR ( Amer) 130.0 (>60) 05/03/17 08:07 Est GFR (Non-Af Amer) 101.1 (>60) 05/03/17 08:07 BUN/Creatinine Ratio 25.4 (8-20) H 05/03/17 08:07 Glucose 101 mg/dL (70-100) H 05/03/17 08:07 Lactic Acid 1.1 mmol/L (0.5-2.0) 05/01/17 17:35 Calcium 7.6 mg/dL (8.6-10.3) L 05/03/17 08:07 Total Bilirubin 0.50 mg/dL (0.2-1.0) 05/01/17 17:35 AST 13 U/L (13-39) 05/01/17 17:35 ALT 13 U/L (7-52) 05/01/17 17:35 Alkaline Phosphatase 76 U/L (34-104) 05/01/17 17:35 Total Creatine Kinase 136 U/L (10-223) 05/01/17 17:35 Troponin I 0.00 ng/mL (<0.04) 05/01/17 17:35 Total Protein 6.1 g/dL (6.4-8.9) L 05/01/17 17:35 Albumin 3.7 g/dL (3.2-5.2) 05/01/17 17:35 Globulin 2.4 g/dL (2-4) 05/01/17 17:35 Albumin/Globulin Ratio 1.5 (1-3) 05/01/17 17:35 Urine Color Yellow 05/01/17 22:30 Urine Appearance Clear 05/01/17 22:30 Urine pH 5.0 (5-9) 05/01/17 22:30 Ur Specific [place] 1.020 (1.010-1.030) 05/01/17 22:30 Urine Protein Negative (Negative) 05/01/17 22:30 Urine Ketones Trace (Negative) H 05/01/17 22:30 Urine Blood 1+ (Negative) H 05/01/17 22:30 Urine Nitrate Negative (Negative) 05/01/17 22:30 Urine Bilirubin Negative (Negative) 05/01/17 22:30 Urine Urobilinogen Negative (Negative) 05/01/17 22:30 Ur Leukocyte Esterase 1+ (Negative) H 05/01/17 22:30 Urine WBC (Auto) 3+(>20/hpf) (Absent) H 05/01/17 22:30 Urine RBC (Auto) 1+(3-5/hpf) (Absent) H 05/01/17 22:30 Urine Bacteria 3+ (Absent) H 05/01/17 22:30 Urine Glucose Negative (Negative) 05/01/17 22:30 Blood Type A Positive 05/01/17 17:35 Antibody Screen Negative 05/01/17 17:35 Crossmatch See Detail 05/01/17 17:35 incision:c/d PE:NVI Assessment: s/p right IMN Plan: 1) continue PT/OT 2) hospitalist co-managing 3) Lovenox for DVT prophylaxis 4) likely PMRU consult
--- NOTE | 2017-05-05 08:28 | PN ---
Subjective Date of Service: 05/05/17 Interval History: Patient seen and examined at bedside. Patient states pain controlled and that she is making progress with PT. Patient denies shortness of breath. Hemoglobin stable. Family History: Unchanged from Admission Social History: Unchanged from Admission Past Medical History: Unchanged from Admission Objective Active Medications: Acetaminophen (Tylenol Tab*) 975 mg PO Q8H [facility] Last Admin: 05/05/17 07:36 Dose: 975 mg Albuterol (Ventolin Hfa Inhaler*) 2 puff INH Q6HR PRN PRN Reason: SHORTNESS OF BREATH Atorvastatin Calcium (Lipitor*) 10 mg PO BEDTIME [facility] Last Admin: 05/04/17 20:37 Dose: 10 mg Bisacodyl (Dulcolax Supp*) 10 mg [place] DAILY PRN PRN Reason: constipation Calcium Carbonate (Calcium Carbonate Tab*) 1,250 mg PO BID [facility] Last Admin: 05/05/17 07:36 Dose: 1,250 mg Device (Nicotine Mouth Piece*) 1 each INH .USE WITH NICOTROL PRN PRN Reason: CRAVING Last Admin: 05/04/17 07:33 Dose: 1 each Diphenhydramine HCl (Benadryl Po*) 25 mg PO Q6H PRN PRN Reason: itching Docusate Sodium (Colace Cap*) 100 mg PO BID PRN PRN Reason: CONSTIPATION Last Admin: 05/01/17 22:51 Dose: 100 mg Docusate Sodium (Colace Cap*) 100 mg PO BID [facility] Last Admin: 05/05/17 07:36 Dose: 100 mg Enoxaparin Sodium (Lovenox(*)) 40 mg SUBCUT 1400 [facility] Last Admin: 05/04/17 14:36 Dose: 40 mg Fluoxetine HCl (Prozac Cap*) 20 mg PO DAILY [facility] Last Admin: 05/05/17 07:37 Dose: 20 mg Gabapentin (Neurontin Cap(*)) 600 mg PO TID [facility] Last Admin: 05/05/17 07:36 Dose: 600 mg Lactulose (Lactulose*) 30 ml PO Q6H PRN PRN Reason: constipation Magnesium Hydroxide (Milk Of Magnesia Liq*) 30 ml PO Q6H PRN PRN Reason: constipation Last Admin: 05/04/17 20:39 Dose: 30 ml Morphine Sulfate (Morphine Inj (Syringe)*) 2 mg IV Q2H PRN PRN Reason: PAIN Multivitamins/Minerals (Theragran/Minerals Tab*) 1 tab PO DAILY [facility] Last Admin: 05/05/17 07:36 Dose: 1 tab Nicotine (Nicotine Inhaler*) 10 mg INH Q2H PRN PRN Reason: CRAVING Last Admin: 05/05/17 07:36 Dose: 10 mg Ondansetron HCl (Zofran Inj*) 4 mg IV Q6H PRN PRN Reason: nausea Oxycodone HCl (Roxycodone Tab*) 5 mg PO Q3H PRN PRN Reason: PAIN - MILD Oxycodone HCl (Roxycodone Tab*) 10 mg PO Q3H PRN PRN Reason: PAIN - MODERATE Last Admin: 05/05/17 07:35 Dose: 10 mg Oxycodone HCl (Roxycodone Tab*) 15 mg PO Q3H PRN PRN Reason: PAIN - MODERATE TO SEVERE Last Admin: 05/03/17 10:56 Dose: 15 mg Perphenazine (Perphenazine (Nf)) 8 mg PO BEDTIME [facility] PRN Reason: Protocol Last Admin: 05/04/17 20:38 Dose: 8 mg Quetiapine Fumarate (Seroquel Tab*) 200 mg PO BID [facility] Last Admin: 05/05/17 07:36 Dose: 200 mg Trimethoprim/Sulfamethoxazole (Bactrim Ds 800/160 Tab*) 1 tab PO BID [facility] Last Admin: 05/05/17 07:36 Dose: 1 tab Vital Signs 05/04/17 05/04/17 05/04/17 09:47 09:51 11:20 Temperature 98.3 F Pulse Rate 85 Respiratory 18 16 15 Rate Blood Pressure 102/43 (mmHg) O2 Sat by Pulse 95 Oximetry 05/04/17 05/04/17 05/04/17 11:47 13:08 14:35 Temperature Pulse Rate Respiratory 16 18 16 Rate Blood Pressure (mmHg) O2 Sat by Pulse Oximetry 05/04/17 05/04/17 05/04/17 15:08 15:21 16:00 Temperature 98.5 F Pulse Rate 80 Respiratory 16 16 Rate Blood Pressure 135/50 (mmHg) O2 Sat by Pulse 93 93 Oximetry 05/04/17 05/04/17 05/04/17 16:11 16:35 18:11 Temperature Pulse Rate Respiratory 18 16 16 Rate Blood Pressure (mmHg) O2 Sat by Pulse Oximetry 05/04/17 05/04/17 05/04/17 19:16 20:27 20:28 Temperature 98.4 F Pulse Rate 80 Respiratory 16 16 Rate Blood Pressure 139/49 (mmHg) O2 Sat by Pulse 92 90 Oximetry 05/04/17 05/04/17 05/04/17 20:30 20:36 22:36 Temperature Pulse Rate Respiratory 16 16 16 Rate Blood Pressure (mmHg) O2 Sat by Pulse Oximetry 05/04/17 05/05/17 05/05/17 23:28 00:45 00:47 Temperature 97.9 F Pulse Rate 85 75 Respiratory 16 Rate Blood Pressure 101/43 (mmHg) O2 Sat by Pulse 87 97 97 Oximetry 05/05/17 05/05/17 05/05/17 02:08 03:18 04:08 Temperature 97.7 F Pulse Rate 71 Respiratory 16 14 16 Rate Blood Pressure 92/48 (mmHg) O2 Sat by Pulse 96 Oximetry 05/05/17 05/05/17 05/05/17 04:40 07:35 07:36 Temperature 97.9 F Pulse Rate 77 Respiratory 18 18 18 Rate Blood Pressure 135/54 (mmHg) O2 Sat by Pulse 96 Oximetry Oxygen Devices in Use Now: None - 3L-94% Appearance: sitting up in bed, NAD Eyes: No Scleral Icterus, PERRLA Ears/Nose/Mouth/Throat: NL Teeth, Lips, Gums Neck: NL Appearance and Movements; NL JVP Respiratory: Symmetrical Chest Expansion and Respiratory Effort, Clear to Auscultation Cardiovascular: NL Sounds; No Murmurs; No JVD, RRR Abdominal: NL Sounds; No Tenderness; No Distention Extremities: No Edema Skin: - - L hip incision C/D/I Neurological: Alert and Oriented x 3, NL Muscle Strength and Tone Lines/Tubes/Other Access: Clean, Dry and Intact Peripheral IV Nutrition: Taking PO's Result Diagrams: 05/05/17 05:50 05/03/17 08:07 Assess/Plan/Problems-Billing Ms Leblanc is a 71 yo F with a hx of COPD, HLD, depression, anxiety and recent L hip fx s/p surgical repair who [place] [facility] [place] another fall where sustained a R R intertrochanteric hip fx. - Patient Problems (1) Hip fracture, right Comment: S/P IM nail placement on 05/[address] Malik. Pain controlled. Appreciate Ortho co-managemeent. Continue PT/OT-she will likely need STR vs PMRU. (2) Acute blood loss anemia Comment: The patient recieved 2 units PRBC 05/03. H/H stable today at 8.8. (3) UTI due to Klebsiella species Comment: The patient's urine grew K oxytoca; Continue Bactrim DS 1 tab BID and await the urine final culture/sensitivities. (4) Anxiety and depression Comment: Continue fluoxetine, gabapentin, seroquel and perphenazine. (5) COPD (chronic obstructive pulmonary disease) Comment: No signs of exacerbation at this time. Continue PRN nebs/inhalers. (6) HTN (hypertension) Comment: BP controlled without antihypertensives. (7) Tobacco abuse Comment: Continue nicotine inhaler. (8) DVT prophylaxis Comment: Lovenox (9) Full code status
[2017-05-05] MEDS: Enoxaparin(*) 40 MG/0.4 ML SYR SUBCUT SCH (13:31)
--- NOTE | 2017-05-05 20:38 | PN ---
Progress Note - Progress Note Date of Service: 05/05/17 Note: Pt seen at 6:15 am. Doing well. pain better controlled. no acute events. awaiting placement AF VSS NAD. right leg dressing in place. calf soft, nontender. SILT grossly distally. able to df/pf foot. brisk cap refill. A/P POD#3 from R hip IMN doing well TDWB PT/OT lovenox for 6 weeks will sign off for now. needs follow up in 2 weeks
[2017-05-05] MEDS: Atorvastatin* 10 MG TAB PO SCH (21:59)
[2017-05-05] MEDS: PERPHENAZINE 8 MG PO SCH (22:00)
[2017-05-06] MEDS: Acetaminophen TAB* 325 MG PO SCH ×3 (01:53→17:48)
[2017-05-06] MEDS: Nicotine Inhaler* 10 MG AMP INH PRN ×4 (05:34→22:12)
[2017-05-06 05:53] LABS: Hematocrit 24 % (35-47); Hemoglobin 7.9 g/dl (12.0-16.0)
[2017-05-06] MEDS: FLUoxetine CAP* 20 MG PO SCH (08:43)
[2017-05-06] MEDS: Gabapentin CAP(*) 300 MG PO SCH ×3 (08:43→20:17)
[2017-05-06] MEDS: Multivitamins/Minerals TAB PO SCH (08:43)
[2017-05-06] MEDS: Calcium Carbonate TAB* 1250 MG (CALCIUM 500 MG) PO SCH ×2 (08:43→20:17)
[2017-05-06] MEDS: QUEtiapine TAB* 100 MG PO SCH ×2 (08:43→20:18)
[2017-05-06] MEDS: Docusate CAP* 100 MG PO SCH ×2 (08:43→20:17)
[2017-05-06] MEDS: oxyCODONE TAB* 5 MG TAB PO PRN ×3 (08:43→20:18)
[2017-05-06] MEDS: Sulfamethox/Trimethoprim DS 800/160* TAB PO SCH ×2 (08:43→20:18)
--- NOTE | 2017-05-06 09:46 | PN ---
Subjective Date of Service: 05/06/17 Interval History: Patient seen and examined at bedside. Patient was not able to ambulate with PT due to toe touch weight bearing restrictions. States pain controlled. H/H stable. Family History: Unchanged from Admission Social History: Unchanged from Admission Past Medical History: Unchanged from Admission Objective Active Medications: Acetaminophen (Tylenol Tab*) 975 mg PO Q8H NATHANIEL Albuterol (Ventolin Hfa Inhaler*) 2 puff INH Q6HR PRN Atorvastatin Calcium (Lipitor*) 10 mg PO BEDTIME NATHANIEL Bisacodyl (Dulcolax Supp*) 10 mg [place] DAILY PRN Calcium Carbonate (Calcium Carbonate Tab*) 1,250 mg PO BID [facility] Device (Nicotine Mouth Piece*) 1 each INH .USE WITH NICOTROL PRN Diphenhydramine HCl (Benadryl Po*) 25 mg PO Q6H PRN Docusate Sodium (Colace Cap*) 100 mg PO BID PRN Docusate Sodium (Colace Cap*) 100 mg PO BID [facility] Enoxaparin Sodium (Lovenox(*)) 40 mg SUBCUT 1400 [facility] Fluoxetine HCl (Prozac Cap*) 20 mg PO DAILY [facility] Gabapentin (Neurontin Cap(*)) 600 mg PO TID NATHANIEL Lactulose (Lactulose*) 30 ml PO Q6H PRN Magnesium Hydroxide (Milk Of Magnesia Liq*) 30 ml PO Q6H PRN Morphine Sulfate (Morphine Inj (Syringe)*) 2 mg IV Q2H PRN Multivitamins/Minerals (Theragran/Minerals Tab*) 1 tab PO DAILY [facility] Nicotine (Nicotine Inhaler*) 10 mg INH Q2H PRN Ondansetron HCl (Zofran Inj*) 4 mg IV Q6H PRN Oxycodone HCl (Roxycodone Tab*) 5 mg PO Q3H PRN Oxycodone HCl (Roxycodone Tab*) 10 mg PO Q3H PRN Oxycodone HCl (Roxycodone Tab*) 15 mg PO Q3H PRN Perphenazine (Perphenazine (Nf)) 8 mg PO BEDTIME NATHANIEL Quetiapine Fumarate (Seroquel Tab*) 200 mg PO BID [facility] Trimethoprim/Sulfamethoxazole (Bactrim Ds 800/160 Tab*) 1 tab PO BID [facility] 09/27/17 09/27/17 09/27/17 03:48 03:49 07:32 Temperature 97.6 F 98.2 F Pulse Rate 70 72 Respiratory 16 16 16 Rate Blood Pressure 122/42 135/60 (mmHg) O2 Sat by Pulse 94 99 Oximetry Oxygen Devices in Use Now: None - 3L-94% Appearance: sitting up in chair, NAD Eyes: No Scleral Icterus, PERRLA Ears/Nose/Mouth/Throat: NL Teeth, Lips, Gums Neck: NL Appearance and Movements; NL JVP Respiratory: Symmetrical Chest Expansion and Respiratory Effort, Clear to Auscultation Cardiovascular: NL Sounds; No Murmurs; No JVD, RRR Abdominal: NL Sounds; No Tenderness; No Distention Extremities: No Edema Skin: - - L hip dressing C/D/I Neurological: Alert and Oriented x 3 Lines/Tubes/Other Access: Clean, Dry and Intact Peripheral IV Nutrition: Taking PO's Result Diagrams: 05/06/17 05:10 05/03/17 08:07 Assess/Plan/Problems-Billing Ms Leblanc is a 71 yo F with a hx of COPD, HLD, depression, anxiety and recent L hip fx s/p surgical repair who presented to [facility] after sustaining another fall where sustained a Right intertrochanteric hip fx. - Patient Problems (1) Hip fracture, right Comment: S/P IM nail placement on 05/[address] Malik. Pain controlled. Continue PT/OT-she will likely need STR vs PMRU. Ortho recommends 6 weeks of Lovenox and 2 week follow-up. (2) Acute blood loss anemia Comment: The patient recieved 2 units PRBC 05/03. H/H stable today at 7.9 (3) UTI due to Klebsiella species Comment: The patient's urine grew K oxytoca sensitive to Bactrim. Continue Bactrim DS 1 tab BID for total of 5 days. (4) Anxiety and depression Comment: Continue fluoxetine, gabapentin, seroquel and perphenazine. (5) COPD (chronic obstructive pulmonary disease) Comment: No signs of exacerbation at this time. Continue PRN nebs/inhalers. (6) HTN (hypertension) Comment: BP controlled without antihypertensives. (7) Tobacco abuse Comment: Continue nicotine inhaler. (8) DVT prophylaxis Comment: Lovenox for 6 weeks. (9) Full code status Status and Disposition: Inpatient. Discharge to PMRU or STR depending on progress with PT.
[2017-05-06] MEDS: Enoxaparin(*) 40 MG/0.4 ML SYR SUBCUT SCH (14:46)
[2017-05-06] MEDS: PERPHENAZINE 8 MG PO SCH (20:17)
[2017-05-06] MEDS: Magnesium Hydroxide LIQ* 30 ML UDC PO PRN (20:18)
[2017-05-06] MEDS: Atorvastatin* 10 MG TAB PO SCH (20:18)
[2017-05-07] MEDS: oxyCODONE TAB* 5 MG TAB PO PRN ×3 (02:38→12:23)
[2017-05-07] MEDS: Acetaminophen TAB* 325 MG PO SCH ×2 (02:38→08:15)
[2017-05-07 05:59] LABS: Hematocrit 27 % (35-47); Hemoglobin 8.9 g/dl (12.0-16.0)
[2017-05-07 06:00] LABS: Comments Flag Yes
[2017-05-07] MEDS: Nicotine Inhaler* 10 MG AMP INH PRN ×2 (08:13→11:27)
[2017-05-07] MEDS: Calcium Carbonate TAB* 1250 MG (CALCIUM 500 MG) PO SCH (08:15)
[2017-05-07] MEDS: FLUoxetine CAP* 20 MG PO SCH (08:15)
[2017-05-07] MEDS: Docusate CAP* 100 MG PO SCH (08:15)
[2017-05-07] MEDS: Gabapentin CAP(*) 300 MG PO SCH ×2 (08:15→13:15)
[2017-05-07] MEDS: Sulfamethox/Trimethoprim DS 800/160* TAB PO SCH (08:16)
[2017-05-07] MEDS: Multivitamins/Minerals TAB PO SCH (08:16)
[2017-05-07] MEDS: QUEtiapine TAB* 100 MG PO SCH (08:20)
--- NOTE | 2017-05-07 08:56 | PN ---
Subjective Date of Service: 05/07/17 Interval History: Patient seen and examined at bedside. Patient teary and frustrated about her lack of progress. Required oxygen overnight. Has not been able to ambulate with PT. Family History: Unchanged from Admission Social History: Unchanged from Admission Past Medical History: Unchanged from Admission Objective Active Medications: Acetaminophen (Tylenol Tab*) 975 mg PO Q8H NATHANIEL Albuterol (Ventolin Hfa Inhaler*) 2 puff INH Q6HR PRN Atorvastatin Calcium (Lipitor*) 10 mg PO BEDTIME NATHANIEL Bisacodyl (Dulcolax Supp*) 10 mg [place] DAILY PRN Calcium Carbonate (Calcium Carbonate Tab*) 1,250 mg PO BID [facility] Device (Nicotine Mouth Piece*) 1 each INH .USE WITH NICOTROL PRN Diphenhydramine HCl (Benadryl Po*) 25 mg PO Q6H PRN Docusate Sodium (Colace Cap*) 100 mg PO BID PRN Docusate Sodium (Colace Cap*) 100 mg PO BID [facility] Enoxaparin Sodium (Lovenox(*)) 40 mg SUBCUT 1400 NATHANIEL Fluoxetine HCl (Prozac Cap*) 20 mg PO DAILY [facility] Gabapentin (Neurontin Cap(*)) 600 mg PO TID NATHANIEL Lactulose (Lactulose*) 30 ml PO Q6H PRN Magnesium Hydroxide (Milk Of Magnesia Liq*) 30 ml PO Q6H PRN Morphine Sulfate (Morphine Inj (Syringe)*) 2 mg IV Q2H PRN Multivitamins/Minerals (Theragran/Minerals Tab*) 1 tab PO DAILY [facility] Nicotine (Nicotine Inhaler*) 10 mg INH Q2H PRN Ondansetron HCl (Zofran Inj*) 4 mg IV Q6H PRN Oxycodone HCl (Roxycodone Tab*) 5 mg PO Q3H PRN Oxycodone HCl (Roxycodone Tab*) 10 mg PO Q3H PRN Oxycodone HCl (Roxycodone Tab*) 15 mg PO Q3H PRN Perphenazine (Perphenazine (Nf)) 8 mg PO BEDTIME NATHANIEL Quetiapine Fumarate (Seroquel Tab*) 200 mg PO BID [facility] Trimethoprim/Sulfamethoxazole (Bactrim Ds 800/160 Tab*) 1 tab PO BID [facility] 09/28/17 09/28/17 09/28/17 07:28 08:13 08:15 Temperature 98.6 F Pulse Rate 83 Respiratory 16 16 16 Rate Blood Pressure 124/64 (mmHg) O2 Sat by Pulse 94 Oximetry Oxygen Devices in Use Now: None - 3L-94% Appearance: sitting up in bed, NAD Eyes: No Scleral Icterus, PERRLA Ears/Nose/Mouth/Throat: NL Teeth, Lips, Gums Neck: NL Appearance and Movements; NL JVP Respiratory: Symmetrical Chest Expansion and Respiratory Effort, Clear to Auscultation Cardiovascular: NL Sounds; No Murmurs; No JVD, RRR Abdominal: NL Sounds; No Tenderness; No Distention Extremities: No Edema Skin: - - R hip incision C/D/I Neurological: Alert and Oriented x 3, NL Muscle Strength and Tone Lines/Tubes/Other Access: Clean, Dry and Intact Peripheral IV Nutrition: Taking PO's Result Diagrams: 05/07/17 05:40 05/03/17 08:07 Additional Lab and Data: Lab Results Assess/Plan/Problems-Billing Ms Leblanc is a 71 yo F with a hx of COPD, HLD, depression, anxiety and recent L hip fx s/p surgical repair who presented to [facility] [place] after sustaining another fall where sustained a Right intertrochanteric hip fx. - Patient Problems (1) Hip fracture, right Comment: S/P IM nail placement on 05/[address] Malik. Pain controlled. Continue PT/OT. She will need STR. Ortho recommends 6 weeks of Lovenox and 2 week follow- up. (2) Acute blood loss anemia Comment: The patient recieved 2 units PRBC 05/03. H/H stable today at 8.9. (3) UTI due to Klebsiella species Comment: The patient's urine grew K oxytoca sensitive to Bactrim. Continue Bactrim DS 1 tab BID for total of 5 days. (4) Anxiety and depression Comment: Continue fluoxetine, gabapentin, seroquel and perphenazine. (5) COPD (chronic obstructive pulmonary disease) Comment: No signs of exacerbation at this time. Continue PRN nebs/inhalers. (6) HTN (hypertension) Comment: BP controlled without antihypertensives. (7) Tobacco abuse Comment: Continue nicotine inhaler. (8) DVT prophylaxis Comment: Lovenox for 6 weeks. (9) Full code status Status and Disposition: Inpatient. Plan for short term rehab. Discharge planners aware.
[2017-05-07 12:54] VITALS: BP 105/58
[2017-05-07] MEDS: Enoxaparin(*) 40 MG/0.4 ML SYR SUBCUT SCH (13:15)
--- NOTE | 2017-05-07 14:25 | DS ---
CC: Dr. Joseph; Dr. Malik* DISCHARGE SUMMARY: DATE OF ADMISSION: 05/01/17 DATE OF DISCHARGE: 05/07/17 PRIMARY CARE PHYSICIAN: Dr. Joseph. CONSULTATIONS WHILE IN THE HOSPITAL: Dr. Malik, Orthopedic Surgery. ATTENDING PHYSICIAN: Ayde Galarza MD* (report dictated by Lary Murray NP ) PRIMARY DIAGNOSES: 1. Right hip fracture, status post mechanical fall. 2. Urinary tract infection. 3. Acute blood loss anemia. SECONDARY DIAGNOSES: 1. Chronic obstructive pulmonary disease. 2. Tobacco abuse. 3. Depression. 4. Anxiety. 5. Hyperlipidemia. STUDIES WHILE IN THE HOSPITAL: 1. Chest x-ray portable on 05/01/17, no radiographic evidence for acute cardiopulmonary abnormality on this portable chest x-ray. 2. Hip right 2 views and pelvis 05/01/17, moderately displaced right intertrochanteric fracture. 3. On 05/01/17, right femur, varus deformity, right intertrochanteric fracture in addition to chronic findings as described above. 4. Hip right postoperative tibia 05/02/17, unremarkable immediate postoperative sampling right hip gamma nail internal fixation. PROCEDURES WHILE IN THE HOSPITAL: On 05/02/17, right hip open reduction with intramedullary nail placement, please refer to Dr. Malik's dictation for detail. MEDICATIONS AT THE TIME OF DISCHARGE: New medications: 1. Tylenol 975 mg oral every 8 hours. 2. Dulcolax 10 mg rectal p.r.n. as needed. 3. Colace 100 mg oral twice daily. 4. Lovenox 40 mg subcu at 2 p.m. for 6 weeks. 5. Lactulose 30 mL every 6 hours as needed. 6. Milk of mag 30 mL oral every 6 hours as needed. 7. Nicotine inhaler 10 mg inhaled every 2 hours as needed. 8. Bactrim 1 tablet oral twice daily, stop date 05/10/17. 9. Oxycodone 10 mg oral every 3 hours as needed for pain, not to exceed 4 tabs per day; 5 mg oral every 3 hours as needed for pain not to exceed 4 tabs a day. The following medications are the medications the patient came in on: 1. Albuterol HFA 1 puff inhaled every 6 hours as needed. 2. Prozac 20 mg oral daily. 3. Perphenazine 8 mg oral at bedtime. 4. Multivitamin 1 tablet oral daily. 5. Simvastatin 20 mg oral at bedtime. 6. Calcium carbonate 1500 mg oral twice daily. 7. Neurontin 600 mg oral 3 times daily. 8. Seroquel 200 mg oral daily. HISTORY OF PRESENT ILLNESS AND HOSPITAL COURSE: Ms. Leblanc is a 71-year-old female with past medical history of COPD, tobacco use, depression, anxiety, hyperlipidemia, who presented to the emergency room on 05/01/17 with complaint of hip pain after a fall sustained 5 days ago. The patient recently had a left hip fracture in March 2017. The patient was found to have a displaced right intertrochanteric fracture. On 05/02/17, she was taken to the operating room for an open reduction and internal fixation with a gamma nail with Dr. Malik, please refer to her dictation for detail. Her postop course was complicated by acute blood loss anemia. Her hemoglobin dropped down to 5.6 on 05/03/17. She was given 2 units of blood and on the day of discharge her hemoglobin is 8.9. She was started on subcu Lovenox for DVT prophylaxis. She required oxygen intermittently which is most likely secondary to her baseline COPD. Her baseline oxygen saturation is around 89%. She was toe-touch weightbearing postoperatively and she was seen by Physical Therapy and Occupational Therapy and unfortunately she was unable to make significant progress to be candidate for the rehab unit here, hence placement was sought out at subacute rehab. Today, she has been offered a bed at [facility]. For her other medical issues, she was continued on her Seroquel, Prozac and perphenazine for her depression, anxiety. In addition, she had nicotine inhaler. She had COPD and was continued on albuterol as needed during her hospitalization. For her hyperlipidemia, her home statin was continued. On 05/06/17, vitals are as follows: Temperature 98.6, heart rate 88, respiratory rate 16, oxygen saturation 90% on 1 L oxygen, blood pressure 124/ 64. At this point, she was stable for discharge DISCHARGE PLANNING: The patient is discharged on regular diet. She is toe- touch weightbearing on the right and full weightbearing on the left. The patient should have physical therapy and occupational therapy. The patient should follow up with Dr. Malik in 2 weeks and her primary care provider in a week to 10 days. The patient should continue on Lovenox for a total of 6 weeks per Orthopedic Surgery. The patient should return to the hospital if she experiences any high fever, significant shortness of breath or worsening pain. I reviewed these instructions with the patient, she is agreeable with the discharge today. This is a summarized report of a complex medical history and hospital stay. For more details, please see the entire medical record. TIME SPENT: Time for this discharge was 60 minutes and 35 minutes was spent with the patient discussing discharge plan. CONDITION ON DISCHARGE: Stable. LARY MURRAY NP [id number]/CPS #: [id number] KODY
== END 2017-05-07 14:50 | DRG 481 ==
LOC: ED 17:11 → SSU 19:41
PROVIDERS: ADMIT Hospitalist; ATTEND Internal Medicine
PROC: 0QS604Z Reposition Right Upper Femur with Internal Fixation Device, Open Approach (ICD-10-PCS; principal; 2017-05-02 08:30)
PROC: 30233N1 Transfusion of Nonautologous Red Blood Cells into Peripheral Vein, Percutaneous Approach (ICD-10-PCS; 2017-05-03)
DX: S72.141A Displaced intertrochanteric fracture of right femur, initial encounter for closed fracture (principal); N39.0 Urinary tract infection, site not specified; J44.9 Chronic obstructive pulmonary disease, unspecified; D62 Acute posthemorrhagic anemia; F32.9 Major depressive disorder, single episode, unspecified; M19.90 Unspecified osteoarthritis, unspecified site; B96.1 Klebsiella pneumoniae [K. pneumoniae] as the cause of diseases classified elsewhere; F41.9 Anxiety disorder, unspecified; F17.210 Nicotine dependence, cigarettes, uncomplicated; W01.0XXA Fall on same level from slipping, tripping and stumbling without subsequent striking against object, initial encounter; E78.5 Hyperlipidemia, unspecified; Z80.1 Family history of malignant neoplasm of trachea, bronchus and lung; Z80.0 Family history of malignant neoplasm of digestive organs; Z88.6 Allergy status to analgesic agent; Z88.8 Allergy status to other drugs, medicaments and biological substances; Z98.42 Cataract extraction status, left eye; Z98.41 Cataract extraction status, right eye; Z82.49 Family history of ischemic heart disease and other diseases of the circulatory system; Y92.003 Bedroom of unspecified non-institutional (private) residence as the place of occurrence of the external cause
CPT/HCPCS: 36415; 71010; 76001; 80048; 80053; 81003; 81015; 82550; 83605; 84484; 85014; 85018; 85025; 85027; 85610; 85730; 86850; 86900; 86901; 86922; 87077; 87086; 87184; 87186; 93005; 94760; A9270-GY; C1713; C1776; J0690; J1100; J1644; J1650; J1885; J2250; J2270; J2405; J2704; J3010; P9040

== ENCOUNTER 2017-10-02 15:13 | Inpatient (IN) | payer MEDICARE, MEDICAID ==
[2017-10-02] MEDS ORDERED: NS 0.9% 1000 ML*IV.FLUID IV ONE (16:19)
[2017-10-02] MEDS ORDERED: NS 0.9% 1000 ML* 1,000 ML IV ONE (16:31)
[2017-10-02] MEDS ORDERED: Meclizine TAB* 12.5 MG PO ONE (16:33)
[2017-10-02 16:48] LABS: ABS Basophils 0.1 10^3/ul (0-0.2); ABS Eosinophils 0.1 10^3/ul (0-0.6); ABS Lymphocytes 1.4 10^3/ul (1.0-4.8); ABS Monocytes 0.6 10^3/ul (0-0.8); ABS Neutrophils 6.8 10^3/ul (1.5-7.7); ABS Nucleated RBC 0 10^3/ul; Eosinophil % 0.8 % (0-6); Hematocrit 42 % (35-47); Hemoglobin 14.3 g/dl (12.0-16.0); Lymphocyte % 15.7 % (25-47); Mean Corpuscular HGB Conc 34 g/dl (31-36); Mean Corpuscular Hemoglobin 30 pg (27-31); Mean Corpuscular Volume 88 fL (80-97); Mean Platelet Volume 9 um3 (7.4-10.4); Nucleated Red Blood Cells % 0; Platelet Count 215 10^3/ul (150-450); Red Blood Count 4.73 10^6/ul (4.0-5.4); Red Cell Distribution Width 15 % (10.5-15)
[2017-10-02 16:58] LABS: INR 0.94 (0.77-1.02)
[2017-10-02 17:07] LABS: EGFR Non-African American 65.4 (>60)
--- NOTE | 2017-10-02 17:22 | RAD ---
INDICATION: Fall. Pain COMPARISON: June 18, 2017 TECHNIQUE: A single AP view of the pelvis is submitted. FINDINGS: There are no acute osseous findings. There is right femoral nailing and there is a Cobb screw in the left femur. There are no findings to suggest hardware failure. The pelvic ring, SI joints, and symphysis appear intact. IMPRESSION: POSTOPERATIVE CHANGES. NO ACUTE BONY FINDINGS
--- NOTE | 2017-10-02 17:28 | RAD ---
INDICATION: Dizziness COMPARISON: None TECHNIQUE: Noncontrast axial source images were acquired from the skull base to the vertex. FINDINGS: Ventricles/sulci: The ventricles and cisterns are normal in size and configuration for age. Brain parenchyma: There is moderate periventricular and subcortical white matter change compatible with chronic ischemia. Intracranial hemorrhage:None. Extra-axial spaces: There are no abnormal extra axial fluid collections or evidence of extra-axial mass. Calvarium: There is no calvarial fracture or other calvarial abnormality. Scalp: There is no evidence of scalp or extracalvarial soft tissue abnormality. Paranasal sinuses/mastoid: The paranasal sinuses and mastoid air cells are clear. Other: None. IMPRESSION: Moderate chronic microvascular ischemic changes. No acute findings.
--- NOTE | 2017-10-02 18:08 | ED ---
Leonel Perea Gabriel, scribed for Antonio Ascencio MD on 10/02/17 at 1610 . Adult Trauma - HPI Summary HPI Summary: This patient is a 71 year old [facility] [place] her boyfriend s/p mechanical fall this afternoon. She woke up feeling dizzy and fell three times today. The patient rates the pain 0/10 in severity. Patient reports dizziness, decreased PO intake, and difficulty seeing. Patient denies head trauma, LOC, and nausea. Pt ambulates with a walker at baseline due to bilateral hip replacement within the last year. - History of Current Complaint Chief Complaint: EDDizziness Stated Complaint: FALL Time Seen by Provider: 10/02/17 15:48 Hx Obtained From: Patient, Family/Bolt Loader - son and boyfriend Ambulatory at the Scene: Yes Loss of Consciousness: no loss of consciousness Onset/Duration: Still Present Onset Severity: Mild Current Severity: Mild Pain Intensity: 0 Pain Scale Used: 0-10 Numeric Associated Signs & Symptoms: Positive: Negative - head trauma, LOC, nausea,, Other: - dizziness, decreased PO intake, difficulty seeing, - Additional Pertinent History Primary Care Physician: [id number] - Allergy/Home Medications Allergies/Adverse Reactions: Allergies Allergy/AdvReac Type Severity Reaction Status Date / Time clonazepam Allergy Altered Verified 10/02/17 15:37 Mental Status codeine Allergy Altered Verified 10/02/17 15:37 Mental Status PMH/Surg Hx/FS Hx/Imm Hx Endocrine/Hematology History: Denies: Hx Diabetes, Hx Thyroid Disease Cardiovascular History: Reports: Hx Hypercholesterolemia, Other Cardiovascular Problems/Disorders - high cholesterol Denies: Hx Hypertension, Hx Pacemaker/ICD Respiratory History: Reports: Hx Asthma - COPD, Hx Chronic Obstructive Pulmonary Disease (COPD), Hx Pneumonia Denies: Other Respiratory Problems/Disorders GI History: Denies: Hx Ulcer History: Denies: Hx Renal Disease Musculoskeletal History: Reports: Hx Arthritis, Hx Orthopedic Injury - BL knee dislocation Denies: Hx Rheumatoid Arthritis, Hx Osteoporosis Sensory History: Reports: Hx Cataracts - bilateral surgery, Hx Contacts or Glasses Denies: Hx Legally Blind, Hx Hearing Aid Opthamlomology History: Reports: Hx Cataracts - bilateral surgery, Hx Contacts or Glasses Denies: Hx Legally Blind Neurological History: Denies: Hx Seizures Psychiatric History: Reports: Hx Anxiety, Hx Depression Denies: Hx Substance Abuse - Surgical History Surgery Procedure, Year, and Place: Foot surgery for bunions x2, breast cyst removed benign, cataract surgery x2,2 knee surgeries for dislocated knee cap, L hip ORIF Hx Anesthesia Reactions: No Infectious Disease History: No Infectious Disease History: Denies: Hx Clostridium Difficile, Hx Hepatitis, Hx Human Immunodeficiency Virus (HIV), Hx of Known/Suspected MRSA, Hx Shingles, Hx Tuberculosis, Hx Known/ Suspected VRE, Hx Known/Suspected VRSA, History Other Infectious Disease, Traveled Outside the [place] in Last 30 Days - Family History Known Family History: Positive: Hypertension - Social History Lives: With Family Alcohol Use: Rare Hx Substance Use: No Substance Use Type: Reports: None Hx Tobacco Use: Yes Smoking Status (MU): Heavy Every Day Tobacco Smoker Type: Cigarettes Amount Used/How Often: 1 PPD Have You Smoked in the Last Year: Yes Review of Systems Constitutional: Negative - head trauma Positive: Other - fall and decreased PO intake Positive: Other - trouble seeing Negative: Nausea Neurological: Negative - LOC , Other - dizziness All Other Systems Reviewed And Are Negative: Yes Physical Exam - Summary Physical Exam Summary: VITAL SIGNS: Reviewed. GENERAL: Patient is a well-developed and nourished female who is lying comfortable in the stretcher. Patient is not in any acute respiratory distress. HEAD AND FACE: No signs of trauma. No ecchymosis, hematomas or skull depressions. No sinus tenderness. EYES: PERRLA, EOMI x 2, No injected conjunctiva, no nystagmus. EARS: Hearing grossly intact. Ear canals and tympanic membranes are within normal limits. MOUTH: Oropharynx within normal limits. NECK: Supple, trachea is midline, no adenopathy, no JVD, no carotid bruit, no c- spine tenderness, neck with full ROM. CHEST: Symmetric, no tenderness at palpation LUNGS: Clear to auscultation bilaterally. No wheezing or crackles. CVS: Regular rate and rhythm, S1 and S2 present, no murmurs or gallops appreciated. ABDOMEN: Soft, non-tender. No signs of distention. No rebound no guarding, and no masses palpated. Bowel sounds are normal. EXTREMITIES: FROM in all major joints, no edema, no cyanosis or clubbing. NEURO: Alert and oriented x 3. No acute neurological deficits. Speech is normal and follows commands. SKIN: Dry and warm Pt was able to ambulate with walker in the ED without difficulty. Triage Information Reviewed: Yes Vital Signs On Initial Exam: Initial Vitals Temp Pulse Resp BP Pulse Ox 97.9 F 68 14 190/77 93 10/02/17 15:33 10/02/17 15:33 10/02/17 15:33 10/02/17 15:33 10/02/17 15:33 Vital Signs Reviewed: Yes Diagnostics - Vital Signs Vital Signs Temp Pulse Resp BP Pulse Ox 10/02/17 15:33 97.9 F 68 14 190/77 93 - Laboratory Result Diagrams: 10/02/17 16:35 10/02/17 16:35 Lab Statement: Any lab studies that have been ordered have been reviewed, and results considered in the medical decision making process. - Radiology pelvis Xray Radiology Interpretation Completed By: Radiologist - POSTOPERATIVE CHANGES. NO ACUTE BONY FINDINGS ED physician has reviewed this radiology report. - CT CT brain CT Interpretation Completed By: Radiologist - Moderate chronic microvascular ischemic changes. No acute findings. ED physician has reviewed this radiology report. - EKG 1635 Cardiac Rate: NL EKG Rhythm: Sinus Rhythm - at 67 BPM EKG Interpretation: normal axis, non-specific T wave changes in the inferior leads Adult Trauma Course/Dx - Course Assessment/Plan: This patient is a 71 year old F BIBA to [facility] accompanied by her boyfriend s/p mechanical fall this afternoon. She woke up feeling dizzy and fell three times today. The patient rates the pain 0/10 in severity. Patient reports dizziness, decreased PO intake, and difficulty seeing. Patient denies head trauma, LOC, and nausea. Pt ambulates with a walker at baseline due to bilateral hip replacement within the last year. An EKG reveals normal axis, non -specific T wave changes in the inferior leads. Pelvis Xray reveals, per radiologist, POSTOPERATIVE CHANGES. NO ACUTE BONY FINDINGS. CT brain reveals, per radiologist, Moderate chronic microvascular ischemic changes. No acute findings. Test results with no significant abnormalities. In the ED course the patient was given antivert and IV fluids. Dx dizziness and vertigo. Patient will be discharged with prescription for meclizine and follow up from Dr. SCHMITZ. The patient is agreeable with this plan. - Diagnoses Provider Diagnoses: Dizziness, Vertigo Discharge - Discharge Plan Condition: Stable Disposition: HOME Prescriptions: Meclizine TAB* [Antivert 12.5 TAB*] 25 mg PO TID PRN #20 tab PRN Reason: Dizziness Patient Education Materials: Vertigo (ED) Referrals: Jordon Joseph MD [Primary Care Provider] - 3 Days Additional Instructions: RETURN TO EMERGENCY DEPARTMENT FOR ANY NEW OR WORSENING SYMPTOMS The documentation as recorded by the Leonel joshi Gabriel accurately reflects the service I personally performed and the decisions made by , Antonio Ascencio MD.
[2017-10-02] MEDS ORDERED: hydrALAZINE IV* 20 MG/ML VIAL IV SLOW PU ONE ×2 (18:25→18:57)
--- NOTE | 2017-10-02 20:08 | ED ---
Leonel Perea Gabriel, scribed for Antonio Ascencio MD on 10/02/17 at 2002 . Progress - Progress Note Progress Note: On discharge the patient was hypertensive. The patient was given Hydralazine and it did not drop her blood pressure an adequate amount. The patient had labile hypertension in the ED. The patient will be admitted for labile hypertension to Dr. Corona. Course/Dx - Diagnoses Provider Diagnoses: Labile hypertension, Dizziness, Vertigo - Provider Notifications Discussed Care Of Patient With: Garrett Corona Time Discussed With Above Provider: 20:03 Instructed by Provider To: Admit As Inpatient The documentation as recorded by the Leonel joshi Gabriel accurately reflects the service I personally performed and the decisions made by , Antonio Ascencio MD.
[2017-10-02] MEDS ORDERED: Melatonin (NF) 3 MG TAB PO PRN (20:23)
[2017-10-02] MEDS ORDERED: Acetaminophen TAB* 325 MG PO PRN (20:23)
[2017-10-02] MEDS ORDERED: hydrALAZINE IV* 20 MG/ML VIAL IV PRN (20:23)
[2017-10-02] MEDS ORDERED: Ondansetron INJ* 2 MG/ML VIAL IV PRN (20:23)
[2017-10-02] MEDS ORDERED: Mouth Piece, Nicotine* 1 EACH CARTRIDGE INH PRN (20:23)
[2017-10-02] MEDS ORDERED: Albuterol 2.5 MG/3 ML NEB.SOL* (0.083%) INH PRN (20:23)
[2017-10-02] MEDS ORDERED: LORazepam TAB(*) 1 MG PO ONE (21:05)
--- NOTE | 2017-10-02 21:14 | HP ---
H&P (Free Text) History and Physical: PCP: Manisha Joseph MD Date/Time: 10/02/20171944 CC: unsteady gait & falls x3 today HPI: Mrs Leblanc is a 71YO female HX OCD, psychotic disorder, COPD, HLD, anxiety, & depression who presents to [facility] after awakening today feeling her gait was off. She reports falls x3 today, but has a history of falls with a R hip FX requiring ORIF 04/2017. She denies LOC or head injury. She reports associated light-headedness without spinning or artifactual motion. She reports an increased frequency of headaches over the past month and sinus congestion for the past week. She reports F/C of an uncertain duration, no sweats, no N/V, but ~5 loose stools yesterday. There was no black or bloody content to her stools. She denies focal W/N/T, change in speech/swallow, or other issues. After arriving to [facility], she became convinced her pharmacy had incorrectly filled her 8mg perphenazine as prior to 09/03 it was a stroud pill and now it was white. Pharmacy was consulted and verified her current pills are in fact 8mg perphenazine. During this time her blood pressures were noted to remain in the 190-210 systolic range and >100 diastolic range. During the peak of her anxiety , she did develop some mild substernal discomfort without SOB, N/V, palpitations , light-headedness, or sweating. As such, request was made to observe overnight for hypertensive urgency. PMedHx COPD HLD OCD psychotic disorder anxiety depression Ambulatory Orders Albuterol HFA INHALER* [Ventolin HFA Inhaler*] 1 puff INH Q6HR PRN 06/20/12 FLUoxetine CAP* [Prozac CAP*] 20 mg PO QAM 06/20/12 Multivitamins/Minerals TAB* [Theragran/minerals TAB*] 1 tab PO QAM 03/13/17 Perphenazine (NF) 8 mg PO BEDTIME 03/13/17 Simvastatin TAB(NF) [Zocor 20 MG (NF)] 20 mg PO BEDTIME 03/13/17 Acetaminophen TAB* [Tylenol TAB*] 325 mg PO Q8H 10/02/17 Calcium Carbonate [Calcium] 600 mg PO BID 10/02/17 Gabapentin CAP(*) [Neurontin 300 CAP(*)] 600 mg PO QAM 10/02/17 Ibuprofen TAB* [Motrin TAB* 800 MG] 800 mg PO QPM 10/02/17 LORazepam [Lorazepam] 0.5 mg PO BEDTIME 10/02/17 QUEtiapine TAB* [Seroquel TAB*] 100 mg PO BID 10/02/17 Allergies clonazepam Allergy (Verified 10/02/17 15:37) Altered Mental Status codeine Allergy (Verified 10/02/17 15:37) Altered Mental Status PSurgHx L dynamic hip screw fixation w/ compression screw & plate ORIF R hip 04/2017 bunionectomy x2 cataract extraction L patellar dislocation reduction x2 SocHx: 1PPD cigarettes, rare alcohol, no recreational drugs; full code FamHx: Father, one brother, & sister passed of lung CA. Another brother passed of colon CA. ROS: as above, otherwise reviewed and all were negative vitals: Vital Signs Temp 36.6 C 10/02/17 15:33 Pulse 89 10/02/17 20:00 Resp 17 10/02/17 20:00 BP 189/110 10/02/17 20:00 Pulse Ox 94 10/02/17 20:00 Intake & Output 10/01/17 10/02/17 10/02/17 23:59 11:59 23:59 Intake Total 500 Balance 500 Weight 56.699 kg Intake: IV Fluids 500 Constitutional: NAD, normally developed, malodorous, unkempt female appearing significantly older than her reported age HEENM: atraumatic; sclera/conjunctiva: anicteric; L strabismus; hearing: clinically mildly decreased; oropharynx: clear, mucosa moist Neck: soft tissue: non-tender; thyroid: normal Pulmonary: clear to auscultation bilaterally, fair to good aeration, no accessory muscle use CV: RR/RR, normal S1S2, no carotid bruit, no jugular venous distention, 2+ B DP/ PT, no edema Abdominal: soft, non-distended, non-tender, no rebound/guarding/rigidity, normoactive bowel sounds, no hepatosplenomegaly or masses, no costovertebral angle tenderness Musculoskeletal: general: grossly intact, no tenderness to palpation Integumental: normal appearance and texture of exposed skin Psychiatric orientation: AA&O to PPS affect: anxious mood: cooperative eye contact: fair content: reliable when able to be focused on giving an answer to the question asked, otherwise highly tangential responses: timely insight: poor Testing: Lab Results 10/02/17 10/02/17 10/02/17 Range/Units 16:35 16:35 16:35 WBC 9.0 (3.5-10.8) 10^3/ul RBC 4.73 (4.0-5.4) 10^6/ul Hgb 14.3 (12.0-16.0) g/dl Hct 42 (35-47) % MCV 88 (80-97) fL MCH 30 (27-31) pg MCHC 34 (31-36) g/dl RDW 15 (10.5-15) % Plt Count 215 (150-450) 10^3/ul MPV 9 (7.4-10.4) um3 Neut % (Auto) 76.2 (38-83) % Lymph % (Auto) 15.7 L (25-47) % Donley % (Auto) 6.4 (0-7) % Eos % (Auto) 0.8 (0-6) % Baso % (Auto) 0.9 (0-2) % Absolute Neuts (auto) 6.8 (1.5-7.7) 10^3/ul Absolute Lymphs (auto) 1.4 (1.0-4.8) 10^3/ul Absolute Monos (auto) 0.6 (0-0.8) 10^3/ul Absolute Eos (auto) 0.1 (0-0.6) 10^3/ul Absolute Basos (auto) 0.1 (0-0.2) 10^3/ul Absolute Nucleated RBC 0 10^3/ul Nucleated RBC % 0 INR (Anticoag Therapy) (0.77-1.02) APTT (26.0-36.3) seconds Sodium 140 (133-145) mmol/L Potassium 3.9 (3.5-5.0) mmol/L Chloride 108 (101-111) mmol/L Carbon Dioxide 27 (22-32) mmol/L Anion Gap 5 (2-11) mmol/L BUN 25 H (6-24) mg/dL Creatinine 0.86 (0.51-0.95) mg/dL Est GFR ( Amer) 84.1 (>60) Est GFR (Non-Af Amer) 65.4 (>60) BUN/Creatinine Ratio 29.1 H (8-20) Glucose 89 (70-100) mg/dL Lactic Acid 1.0 (0.5-2.0) mmol/L Calcium 9.7 (8.6-10.3) mg/dL Magnesium 2.1 (1.9-2.7) mg/dL Total Bilirubin 0.40 (0.2-1.0) mg/dL AST 15 (13-39) U/L ALT 14 (7-52) U/L Alkaline Phosphatase 90 (34-104) U/L Total Creatine Kinase 84 (10-223) U/L Troponin I 0.01 (<0.04) ng/mL Total Protein 7.3 (6.4-8.9) g/dL Albumin 4.5 (3.2-5.2) g/dL Globulin 2.8 (2-4) g/dL Albumin/Globulin Ratio 1.6 (1-3) 10/02/17 Range/Units 16:35 WBC (3.5-10.8) 10^3/ul RBC (4.0-5.4) 10^6/ul Hgb (12.0-16.0) g/dl Hct (35-47) % MCV (80-97) fL MCH (27-31) pg MCHC (31-36) g/dl RDW (10.5-15) % Plt Count (150-450) 10^3/ul MPV (7.4-10.4) um3 Neut % (Auto) (38-83) % Lymph % (Auto) (25-47) % Donley % (Auto) (0-7) % Eos % (Auto) (0-6) % Baso % (Auto) (0-2) % Absolute Neuts (auto) (1.5-7.7) 10^3/ul Absolute Lymphs (auto) (1.0-4.8) 10^3/ul Absolute Monos (auto) (0-0.8) 10^3/ul Absolute Eos (auto) (0-0.6) 10^3/ul Absolute Basos (auto) (0-0.2) 10^3/ul Absolute Nucleated RBC 10^3/ul Nucleated RBC % INR (Anticoag Therapy) 0.94 (0.77-1.02) APTT 27.6 (26.0-36.3) seconds Sodium (133-145) mmol/L Potassium (3.5-5.0) mmol/L Chloride (101-111) mmol/L Carbon Dioxide (22-32) mmol/L Anion Gap (2-11) mmol/L BUN (6-24) mg/dL Creatinine (0.51-0.95) mg/dL Est GFR ( Amer) (>60) Est GFR (Non-Af Amer) (>60) BUN/Creatinine Ratio (8-20) Glucose (70-100) mg/dL Lactic Acid (0.5-2.0) mmol/L Calcium (8.6-10.3) mg/dL Magnesium (1.9-2.7) mg/dL Total Bilirubin (0.2-1.0) mg/dL AST (13-39) U/L ALT (7-52) U/L Alkaline Phosphatase (34-104) U/L Total Creatine Kinase (10-223) U/L Troponin I (<0.04) ng/mL Total Protein (6.4-8.9) g/dL Albumin (3.2-5.2) g/dL Globulin (2-4) g/dL Albumin/Globulin Ratio (1-3) ECG, personally reviewed: NSR rate 67, no ischemia pelvis XRY, personally reviewed: IMPRESSION: POSTOPERATIVE CHANGES. NO ACUTE BONY FINDINGS CT brain WO, personally reviewed: IMPRESSION: Moderate chronic microvascular ischemic changes. No acute findings. Impression: 71F presenting with recurrent falls, numerous unrelated complaints, chest discomfort in setting of acute anxiety w/ elevated blood pressure DIAGNOSIS & PLAN Primary hypertensive urgency : start amlodipine 5mg PO daily : IV hydralazine PRN : 1 mg PO lorazepam x1 : telemetry : obtain 6hr troponin : supplemental oxygen : supportive care acute anxiety : 1mg lorazepam PO x1 Secondary COPD : albuterol neb PRN HLD : continue simvastatin OCD : continue perphenazine psychotic disorder : continue quetiapine anxiety : continue lorazepam depression : continue fluoxetine Admission Rational: observation for hypertensive urgency DVTp: heparin SQ Code Status: full HCP: sonSeveriano
[2017-10-02] MEDS: QUEtiapine TAB* 100 MG PO SCH (22:19)
[2017-10-02] MEDS: Atorvastatin* 10 MG TAB PO SCH (22:19)
[2017-10-02] MEDS: amLODIPine TAB* 5 MG PO SCH (22:19)
[2017-10-02] MEDS: Perphenazine TAB* 2 MG PO SCH (22:36)
[2017-10-02] MEDS: Docusate CAP* 100 MG PO SCH (22:51)
[2017-10-03] MEDS: Heparin VIAL(*) 5000 UNITS/ML VIAL (FIVE THOUSAND) SUBCUT SCH ×3 (05:34→21:18)
[2017-10-03] MEDS: Omeprazole CAP* 20 MG PO SCH (05:34)
[2017-10-03] MEDS: QUEtiapine TAB* 100 MG PO SCH ×2 (09:44→21:18)
[2017-10-03] MEDS: amLODIPine TAB* 5 MG PO SCH (09:44)
[2017-10-03] MEDS: Aspirin EC Low Dose* 81 MG TAB.EC PO SCH (09:44)
[2017-10-03] MEDS: Gabapentin CAP(*) 300 MG PO SCH (09:44)
[2017-10-03] MEDS: FLUoxetine CAP* 20 MG PO SCH (09:44)
[2017-10-03] MEDS: Docusate CAP* 100 MG PO SCH ×2 (09:44→21:18)
[2017-10-03] MEDS: Nicotine Inhaler* 10 MG AMP INH PRN ×2 (14:13→18:02)
--- NOTE | 2017-10-03 16:35 | PN ---
Subjective Date of Service: 10/03/17 Interval History: Seen this AM. Has no complaints. She would like to be discharged today. Denies SOB, CP, N/V, LH, urinary symptoms Objective Active Medications: Acetaminophen (Tylenol Tab*) 650 mg PO Q6H PRN PRN Reason: FEVER/PAIN Last Admin: 10/03/17 12:15 Dose: 650 mg Albuterol (Ventolin 2.5 Mg/3 Ml Neb.Arline*) 2.5 mg INH Q2H PRN PRN Reason: SOB/WHEEZING Amlodipine Besylate (Norvasc Tab*) 5 mg PO DAILY [facility] Last Admin: 10/03/17 09:44 Dose: 5 mg Aspirin (Aspirin Ec Low Dose*) 81 mg PO DAILY [facility] Last Admin: 10/03/17 09:44 Dose: 81 mg Atorvastatin Calcium (Lipitor*) 10 mg PO BEDTIME [facility] Last Admin: 10/02/17 22:19 Dose: 10 mg Device (Nicotine Mouth Piece*) 1 each INH .USE WITH NICOTROL PRN PRN Reason: CRAVING Last Admin: 10/03/17 14:13 Dose: 1 each Docusate Sodium (Colace Cap*) 200 mg PO BID [facility] Last Admin: 10/03/17 09:44 Dose: 200 mg Fluoxetine HCl (Prozac Cap*) 20 mg PO QAM [facility] Last Admin: 10/03/17 09:44 Dose: 20 mg Gabapentin (Neurontin Cap(*)) 600 mg PO QAM [facility] Last Admin: 10/03/17 09:44 Dose: 600 mg Heparin Sodium (Porcine) (Heparin Vial(*)) 5,000 units SUBCUT Q8HR [facility] Last Admin: 10/03/17 14:14 Dose: 5,000 units Hydralazine HCl (Apresoline Iv*) 10 mg IV Q4H PRN PRN Reason: Systolic >170 Melatonin (Melatonin (Nf)) 3 mg PO BEDTIME PRN; Protocol PRN Reason: Sleep Nicotine (Nicotine Inhaler*) 10 mg INH Q2H PRN PRN Reason: CRAVING Last Admin: 10/03/17 14:13 Dose: 10 mg Omeprazole (Prilosec Cap*) 20 mg PO DAILY@0600 [facility] Last Admin: 10/03/17 05:34 Dose: 20 mg Ondansetron HCl (Zofran Inj*) 4 mg IV Q6H PRN PRN Reason: NAUSEA Perphenazine (Trilafon Tab*) 8 mg PO BEDTIME [facility] PRN Reason: Protocol Last Admin: 10/02/17 22:36 Dose: 8 mg Quetiapine Fumarate (Seroquel Tab*) 100 mg PO BID [facility] Last Admin: 10/03/17 09:44 Dose: 100 mg Vital Signs - 8 hr 10/03/17 10/03/17 09:44 10:46 Temperature 98.2 F Pulse Rate 84 Respiratory 20 16 Rate Blood Pressure 153/64 (mmHg) O2 Sat by Pulse 97 Oximetry Oxygen Devices in Use Now: None Appearance: sleeping, easy to wake, NAD Eyes: No Scleral Icterus, PERRLA Ears/Nose/Mouth/Throat: Clear Oropharnyx, Mucous Membranes Moist Neck: NL Appearance and Movements; NL JVP, Trachea Midline Respiratory: Symmetrical Chest Expansion and Respiratory Effort, Clear to Auscultation Cardiovascular: RRR Abdominal: NL Sounds; No Tenderness; No Distention, No Hepatosplenomegaly Lymphatic: No Cervical Adenopathy Extremities: No Edema Skin: No Rash or Ulcers Neurological: Alert and Oriented x 3, - - see PT note for gait assessment Result Diagrams: 10/02/17 16:35 10/02/17 16:35 Assess/Plan/Problems-Billing Assessment: 71 yo F h/o COPD, anxiety/depression, chart record of psychotic disorder per admission H&P p/w increasing falls found with decreased functional ability on PT eval - Patient Problems (1) Generalized weakness Comment: check CXR and UA to r/o contributing infection may need HENRIK (2) Anxiety and depression Comment: Continue fluoxetine, gabapentin, seroquel and perphenazine. These may be contributing to increased falls although it does not appear she has had a change in doses (3) COPD (chronic obstructive pulmonary disease) Comment: No signs of exacerbation at this time. Continue PRN nebs/inhalers. (4) Hypertension Comment: urgency on admission likely 2/2 contributing anxiety c/w norvasc (5) DVT prophylaxis Comment: HSQ
--- NOTE | 2017-10-03 18:16 | RAD ---
Indication: Lethargy, fall. 2 views of the chest are reviewed and compared to previous exam dated May 01, 2017. Lung wong appear hyperinflated. No pleural fluid, pneumonia or pneumothorax is noted. IMPRESSION: Hyperinflated lung wong without definite pneumonia.
[2017-10-03] MEDS: Perphenazine TAB* 2 MG PO SCH (21:18)
[2017-10-03] MEDS: Atorvastatin* 10 MG TAB PO SCH (21:18)
[2017-10-04 04:54] LABS: Urine Appearance Clear; Urine Blood Negative (Negative); Urine Color Yellow; Urine Ketones Negative (Negative); Urine Protein Negative (Negative); Urine Specific Gravity 1.015 (1.010-1.030); Urine Urobilinogen Negative (Negative)
[2017-10-04] MEDS: Heparin VIAL(*) 5000 UNITS/ML VIAL (FIVE THOUSAND) SUBCUT SCH ×3 (05:30→21:42)
[2017-10-04] MEDS: Omeprazole CAP* 20 MG PO SCH (05:30)
[2017-10-04] MEDS: Nicotine Inhaler* 10 MG AMP INH PRN ×3 (08:56→20:54)
[2017-10-04] MEDS: QUEtiapine TAB* 100 MG PO SCH ×2 (09:02→20:45)
[2017-10-04] MEDS: Aspirin EC Low Dose* 81 MG TAB.EC PO SCH (09:02)
[2017-10-04] MEDS: FLUoxetine CAP* 20 MG PO SCH (09:02)
[2017-10-04] MEDS: Gabapentin CAP(*) 300 MG PO SCH (09:03)
[2017-10-04] MEDS: amLODIPine TAB* 5 MG PO SCH (09:03)
[2017-10-04] MEDS: Docusate CAP* 100 MG PO SCH ×2 (09:03→20:44)
--- NOTE | 2017-10-04 17:05 | PN ---
Subjective Date of Service: 10/04/17 Interval History: Feels fatigued otherwise no complaints Difficulty ambulating Objective Active Medications: Acetaminophen (Tylenol Tab*) 650 mg PO Q6H PRN PRN Reason: FEVER/PAIN Last Admin: 10/03/17 12:15 Dose: 650 mg Albuterol (Ventolin 2.5 Mg/3 Ml Neb.Arline*) 2.5 mg INH Q2H PRN PRN Reason: SOB/WHEEZING Amlodipine Besylate (Norvasc Tab*) 5 mg PO DAILY [facility] Last Admin: 10/04/17 09:03 Dose: 5 mg Aspirin (Aspirin Ec Low Dose*) 81 mg PO DAILY [facility] Last Admin: 10/04/17 09:02 Dose: 81 mg Atorvastatin Calcium (Lipitor*) 10 mg PO BEDTIME [facility] Last Admin: 10/03/17 21:18 Dose: 10 mg Device (Nicotine Mouth Piece*) 1 each INH .USE WITH NICOTROL PRN PRN Reason: CRAVING Last Admin: 10/03/17 14:13 Dose: 1 each Docusate Sodium (Colace Cap*) 200 mg PO BID [facility] Last Admin: 10/04/17 09:03 Dose: 200 mg Fluoxetine HCl (Prozac Cap*) 20 mg PO QAM [facility] Last Admin: 10/04/17 09:02 Dose: 20 mg Gabapentin (Neurontin Cap(*)) 600 mg PO QAM [facility] Last Admin: 10/04/17 09:03 Dose: 600 mg Heparin Sodium (Porcine) (Heparin Vial(*)) 5,000 units SUBCUT Q8HR [facility] Last Admin: 10/04/17 13:34 Dose: 5,000 units Hydralazine HCl (Apresoline Iv*) 10 mg IV Q4H PRN PRN Reason: Systolic >170 Melatonin (Melatonin (Nf)) 3 mg PO BEDTIME PRN; Protocol PRN Reason: Sleep Nicotine (Nicotine Inhaler*) 10 mg INH Q2H PRN PRN Reason: CRAVING Last Admin: 10/04/17 15:45 Dose: 10 mg Omeprazole (Prilosec Cap*) 20 mg PO DAILY@0600 [facility] Last Admin: 10/04/17 05:30 Dose: 20 mg Ondansetron HCl (Zofran Inj*) 4 mg IV Q6H PRN PRN Reason: NAUSEA Perphenazine (Trilafon Tab*) 8 mg PO BEDTIME [facility] PRN Reason: Protocol Last Admin: 10/03/17 21:18 Dose: 8 mg Quetiapine Fumarate (Seroquel Tab*) 100 mg PO BID [facility] Last Admin: 10/04/17 09:02 Dose: 100 mg Vital Signs - 8 hr 10/04/17 10/04/17 10/04/17 09:03 11:32 13:32 Temperature 98.2 F Pulse Rate 74 Respiratory 16 18 16 Rate Blood Pressure 150/71 (mmHg) O2 Sat by Pulse 97 Oximetry 10/04/17 16:45 Temperature 97.9 F Pulse Rate 65 Respiratory 16 Rate Blood Pressure 155/69 (mmHg) O2 Sat by Pulse 100 Oximetry Oxygen Devices in Use Now: None Appearance: NAD Eyes: No Scleral Icterus, PERRLA Ears/Nose/Mouth/Throat: Clear Oropharnyx, Mucous Membranes Moist Neck: NL Appearance and Movements; NL JVP, Trachea Midline Respiratory: Symmetrical Chest Expansion and Respiratory Effort Cardiovascular: RRR Abdominal: NL Sounds; No Tenderness; No Distention Lymphatic: No Cervical Adenopathy Neurological: Alert and Oriented x 3, - - Right eye ptosis with partial 3rd nerve Result Diagrams: 10/02/17 16:35 10/02/17 16:35 Assess/Plan/Problems-Billing Assessment: 71 yo F h/o COPD, anxiety/depression, chart record of psychotic disorder per admission H&P p/w increasing falls found with decreased functional ability on PT eval - Patient Problems (1) Ptosis Comment: With associated occulomotor dysfunction check MRI brain (2) Generalized weakness Comment: no e/o infection may need HENRIK (3) Anxiety and depression Comment: Continue fluoxetine, gabapentin, seroquel and perphenazine. These may be contributing to increased falls although it does not appear she has had a change in doses (4) COPD (chronic obstructive pulmonary disease) Comment: No signs of exacerbation at this time. Continue PRN nebs/inhalers. (5) Hypertension Comment: urgency on admission likely 2/2 contributing anxiety c/w norvasc (6) DVT prophylaxis Comment: HSQ
[2017-10-04] MEDS: Atorvastatin* 10 MG TAB PO SCH (20:45)
[2017-10-04] MEDS: Perphenazine TAB* 2 MG PO SCH (20:54)
[2017-10-05] MEDS: Heparin VIAL(*) 5000 UNITS/ML VIAL (FIVE THOUSAND) SUBCUT SCH ×3 (05:15→21:41)
[2017-10-05] MEDS: Omeprazole CAP* 20 MG PO SCH (05:15)
[2017-10-05 06:27] LABS: ABS Basophils 0.1 10^3/ul (0-0.2); ABS Eosinophils 0.1 10^3/ul (0-0.6); ABS Lymphocytes 2.2 10^3/ul (1.0-4.8); ABS Monocytes 0.4 10^3/ul (0-0.8); ABS Neutrophils 2.5 10^3/ul (1.5-7.7); ABS Nucleated RBC 0 10^3/ul; Eosinophil % 1.2 % (0-6); Hematocrit 39 % (35-47); Hemoglobin 13.1 g/dl (12.0-16.0); Lymphocyte % 42.2 % (25-47); Mean Corpuscular HGB Conc 34 g/dl (31-36); Mean Corpuscular Hemoglobin 30 pg (27-31); Mean Corpuscular Volume 89 fL (80-97); Mean Platelet Volume 8 um3 (7.4-10.4); Nucleated Red Blood Cells % 0.1; Platelet Count 201 10^3/ul (150-450); Red Blood Count 4.37 10^6/ul (4.0-5.4); Red Cell Distribution Width 15 % (10.5-15); White Blood Count 5.2 10^3/ul (3.5-10.8)
[2017-10-05] MEDS: Nicotine Inhaler* 10 MG AMP INH PRN (09:17)
[2017-10-05] MEDS: Docusate CAP* 100 MG PO SCH ×2 (09:18→21:41)
[2017-10-05] MEDS: Gabapentin CAP(*) 300 MG PO SCH (09:19)
[2017-10-05] MEDS: amLODIPine TAB* 5 MG PO SCH (09:20)
[2017-10-05] MEDS: Aspirin EC Low Dose* 81 MG TAB.EC PO SCH (09:20)
[2017-10-05] MEDS: FLUoxetine CAP* 20 MG PO SCH (09:20)
[2017-10-05] MEDS: QUEtiapine TAB* 100 MG PO SCH ×2 (09:20→21:41)
--- NOTE | 2017-10-05 11:45 | RAD ---
HISTORY: New right eye proptosis and 3rd nerve palsy COMPARISONS: Head CT dated October 02, 2017 TECHNIQUE: The following sequences were obtained of the head: Sagittal T1-weighted images, axial T2-weighted images, axial FLAIR images, axial susceptibility weighted images, axial T1-weighted images. Additionally, axial diffusion-weighted images were obtained with calculated apparent diffusion coefficients. FINDINGS: HEMORRHAGE/INFARCT: There is a small focus of restricted diffusion within the left medial thalamus measuring 0.7 cm in size consistent with subacute nonhemorrhagic infarct. Elsewhere, there is no hemorrhage or acute infarct. MASSES/SHIFT: There is no mass or shift. EXTRA-AXIAL SPACES/MENINGES: There are no extra-axial fluid collections. SULCI AND VENTRICLES: The sulci and ventricles are normal in size and position for the patient's stated age. CEREBRUM: There is diffuse multifocal elevated T2/FLAIR signal in the periventricular and subcortical white matter, with chronic appearing lacunar infarcts in the coronal radiata bilaterally. As noted above, there is elevated T2/FLAIR signal corresponding to the subacute nonhemorrhagic infarct of the left medial thalamus. BRAINSTEM: There is elevated T2/FLAIR signal within the pontine white matter with chronic appearing lacunar infarcts of the samson. CEREBELLUM: There are no focal parenchymal abnormalities. The cerebellar tonsils are normal in size and position. SELLA: The sella is normal. PINEAL: The pineal region is clear. CP ANGLE/TEMPORAL BONES: The labyrinthine structures are grossly normal. VESSELS: Normal flow-voids are noted within the visualized vertebral vasculature. DIFFUSION ABNORMALITIES: As noted above, there is restricted diffusion within the left medial thalamus. There is elevated diffusion signal within the left frontal coronal radiata without restricted diffusion, suggestive of T2 shine through . PARANASAL SINUSES/MASTOIDS: The paranasal sinuses are clear. ORBITS: The orbits are unremarkable. BONES AND SOFT TISSUE: Degenerative changes are noted of the spine OTHER: None IMPRESSION: 1. SMALL SUBACUTE NONHEMORRHAGIC INFARCT OF THE LEFT MEDIAL THALAMUS. 2. EXTENSIVE CHRONIC SMALL VESSEL ISCHEMIC CHANGES WITH MULTIPLE CHRONIC LACUNAR INFARCTS OF THE CEREBRUM AND BRAINSTEM
[2017-10-05] MEDS ORDERED: Iohexol 350* (CONTRAST) 500 ML MDV IV ONE (13:48)
--- NOTE | 2017-10-05 15:52 | RAD ---
HISTORY: Stroke COMPARISONS: MRI of the brain dated October 05, 2017, CT of the chest dated March 13, 2017 TECHNIQUE: Multiple contiguous axial CT scans were obtained of the head and neck after the administration of nonionic intravenous contrast timed to the systemic arterial phase of contrast enhancement. Coronal and sagittal multiplanar reformations are submitted for review. Multiple 3-D maximum intensity projection reconstructions are also submitted for review. FINDINGS: CTA NECK: AORTIC ARCH: There is a normal three-vessel branching pattern of the aortic arch. There is no ostial or proximal stenosis of the cephalic great vessels. RIGHT VERTEBRAL ARTERY: The right vertebral artery is patent along its course, without stenosis. LEFT VERTEBRAL ARTERY: The left vertebral artery is patent along its course, without stenosis. DOMINANCE: The left vertebral artery is dominant. RIGHT COMMON CAROTID ARTERY: The right common carotid artery is patent. The right carotid bifurcation occurs at C4-C5 RIGHT INTERNAL CAROTID ARTERY: There is atheromatous disease of the right carotid bifurcation, without right internal carotid artery stenosis by NASCET criteria. RIGHT EXTERNAL CAROTID ARTERY: The right external carotid artery is unremarkable. LEFT COMMON CAROTID ARTERY: There is atheromatous plaque of the left common carotid artery with approximately 30% diameter luminal narrowing. The left carotid bifurcation occurs at C4-C5 LEFT INTERNAL CAROTID ARTERY: There is atheromatous disease of the left carotid bifurcation, without left internal carotid artery stenosis by NASCET criteria. LEFT EXTERNAL CAROTID ARTERY: The left external carotid artery is unremarkable. VENOUS CIRCULATION: The venous system is unremarkable. SALIVARY GLANDS: The parotid glands, submandibular glands, sublingual glands are normal. NASAL CAVITY/NASOPHARYNX: The nasal cavity and nasopharynx are normal. ORAL CAVITY/OROPHARYNX: The oral cavity and oropharynx are unremarkable. LARYNGEAL APPARATUS/HYPOPHARYNX: The laryngeal apparatus and hypopharynx are normal. UPPER AIRWAY/UPPER ESOPHAGUS: The visualized upper airway and esophagus are normal. LUNG APICES: Again noted are prominent prevascular lymph nodes, stable from March 13, 2017 THYROID GLAND: Thyroid gland is heterogeneous. There is a 1.3 cm nodule of the left lower thyroid LYMPH NODES: There is no lymphadenopathy by size criteria. BONES AND SOFT TISSUES: No bone or soft tissue abnormalities are noted. CTA HEAD: INTRACRANIAL CIRCULATION: There is no aneurysm, vascular malformation, occlusion, or stenosis of the visualized intracranial circulation. The anterior communicating artery complex is clear. Bilateral posterior communicating arteries are identified. VENOUS CIRCULATION: The venous system is unremarkable. PERFUSION: There is no obvious parenchymal perfusion deficit. HEMORRHAGE/INFARCT: There is no hemorrhage or acute infarct. MASSES/SHIFT: There is no mass or shift. EXTRA-AXIAL SPACES: There are no extra-axial fluid collections. SULCI AND VENTRICLES: The sulci and ventricles are normal in size and position for the patient's stated age. CEREBRUM: There is hypoattenuation of the periventricular and subcortical white matter. BRAINSTEM: There are no focal parenchymal abnormalities. CEREBELLUM: There are no focal parenchymal abnormalities. PARANASAL SINUSES: The paranasal sinuses are clear. ORBITS: The orbits are unremarkable. BONES AND SOFT TISSUE: Degenerative changes are noted. OTHER: There is no abnormal enhancement. IMPRESSION: 1. ATHEROSCLEROSIS. 2. NO INTERNAL CAROTID ARTERY STENOSIS BY NASCET CRITERIA. 3. NO ANEURYSM, VASCULAR MALFORMATION, OCCLUSION, OR STENOSIS OF THE VISUALIZED INTRACRANIAL CIRCULATION.. 4. CHRONIC SMALL VESSEL ISCHEMIC CHANGE. 5. HETEROGENEOUS THYROID WITH 1.3 CM LEFT THYROID NODULE. 6. STABLE PROMINENT MEDIASTINAL LYMPH NODES. CPT II Codes: 3100F
--- NOTE | 2017-10-05 16:55 | PN ---
Subjective Date of Service: 10/05/17 Interval History: Wants to leave the hospital Has no complaints Denies LEDEZMA, N/V, LH Objective Active Medications: Acetaminophen (Tylenol Tab*) 650 mg PO Q6H PRN PRN Reason: FEVER/PAIN Last Admin: 10/03/17 12:15 Dose: 650 mg Albuterol (Ventolin 2.5 Mg/3 Ml Neb.Arline*) 2.5 mg INH Q2H PRN PRN Reason: SOB/WHEEZING Last Admin: 10/05/17 08:35 Dose: 2.5 mg Amlodipine Besylate (Norvasc Tab*) 5 mg PO DAILY [facility] Last Admin: 10/05/17 09:20 Dose: 5 mg Aspirin (Aspirin Ec Low Dose*) 81 mg PO DAILY [facility] Last Admin: 10/05/17 09:20 Dose: 81 mg Atorvastatin Calcium (Lipitor*) 10 mg PO BEDTIME [facility] Last Admin: 10/04/17 20:45 Dose: 10 mg Device (Nicotine Mouth Piece*) 1 each INH .USE WITH NICOTROL PRN PRN Reason: CRAVING Last Admin: 10/03/17 14:13 Dose: 1 each Docusate Sodium (Colace Cap*) 200 mg PO BID [facility] Last Admin: 10/05/17 09:18 Dose: 200 mg Fluoxetine HCl (Prozac Cap*) 20 mg PO QAM [facility] Last Admin: 10/05/17 09:20 Dose: 20 mg Gabapentin (Neurontin Cap(*)) 600 mg PO QAM [facility] Last Admin: 10/05/17 09:19 Dose: 600 mg Heparin Sodium (Porcine) (Heparin Vial(*)) 5,000 units SUBCUT Q8HR [facility] Last Admin: 10/05/17 13:49 Dose: 5,000 units Hydralazine HCl (Apresoline Iv*) 10 mg IV Q4H PRN PRN Reason: Systolic >170 Melatonin (Melatonin (Nf)) 3 mg PO BEDTIME PRN; Protocol PRN Reason: Sleep Last Admin: 10/05/17 00:04 Dose: 3 mg Nicotine (Nicotine Inhaler*) 10 mg INH Q2H PRN PRN Reason: CRAVING Last Admin: 10/05/17 09:17 Dose: 10 mg Omeprazole (Prilosec Cap*) 20 mg PO DAILY@0600 [facility] Last Admin: 10/05/17 05:15 Dose: 20 mg Ondansetron HCl (Zofran Inj*) 4 mg IV Q6H PRN PRN Reason: NAUSEA Perphenazine (Trilafon Tab*) 8 mg PO BEDTIME [facility] PRN Reason: Protocol Last Admin: 10/04/17 20:54 Dose: 8 mg Quetiapine Fumarate (Seroquel Tab*) 100 mg PO BID [facility] Last Admin: 10/05/17 09:20 Dose: 100 mg Vital Signs - 8 hr 10/05/17 10/05/17 10/05/17 09:19 11:02 12:08 Temperature 98.1 F Pulse Rate 77 Respiratory 18 16 16 Rate Blood Pressure 122/71 (mmHg) O2 Sat by Pulse 98 Oximetry 10/05/17 10/05/17 10/05/17 13:22 15:22 16:15 Temperature 98.1 F 97.4 F Pulse Rate 65 75 Respiratory 18 20 16 Rate Blood Pressure 136/65 114/62 (mmHg) O2 Sat by Pulse 96 100 Oximetry Oxygen Devices in Use Now: None Appearance: sitting in chair, nad Eyes: No Scleral Icterus, PERRLA Ears/Nose/Mouth/Throat: Clear Oropharnyx, Mucous Membranes Moist Neck: NL Appearance and Movements; NL JVP, Trachea Midline Respiratory: Symmetrical Chest Expansion and Respiratory Effort, Clear to Auscultation Cardiovascular: RRR Abdominal: NL Sounds; No Tenderness; No Distention, No Hepatosplenomegaly Lymphatic: No Cervical Adenopathy Skin: No Rash or Ulcers Neurological: Alert and Oriented x 3, - - right eye exotropia, right eye ptosis Result Diagrams: 10/05/17 06:01 10/02/17 16:35 Assess/Plan/Problems-Billing Assessment: 71 yo F h/o COPD, anxiety/depression, chart record of psychotic disorder per admission H&P p/w increasing falls found subacute thalamic stroke - Patient Problems (1) CVA (cerebral vascular accident) Comment: transfer to tele check CTA head/neck TTE with bubble lipids and hba1c asa, lipitor (2) Generalized weakness Comment: no e/o infection may need HENRIK (3) Anxiety and depression Comment: Continue fluoxetine, gabapentin, seroquel and perphenazine. These may be contributing to increased falls although it does not appear she has had a change in doses (4) COPD (chronic obstructive pulmonary disease) Comment: No signs of exacerbation at this time. Continue PRN nebs/inhalers. (5) Hypertension Comment: urgency on admission likely 2/2 contributing anxiety c/w norvasc (6) DVT prophylaxis Comment: HSQ
--- NOTE | 2017-10-05 21:06 | CONS ---
NEUROLOGY CONSULTATION NOTE: DATE OF CONSULT: 10/05/17 LOCATION: Patient is an inpatient. REQUESTING PHYSICIAN: Dr. Huertas. REASON FOR CONSULT: Thalamic infarction. HISTORY OF PRESENT ILLNESS: Pooja Leblanc is a 71-year-old woman with a history of depression and according to the medical record, OCD and psychotic disorder, who is overall a poor informant. She came in to the emergency department on 10/02/17 with increasing difficulties with her gait and multiple falls that day. She tells me today that she does not have a history of falling but then says that she had fractured both of her hips last summer/fall requiring repair because of falls. She is denying any weakness, numbness, or tingling. She has no difficulty swallowing or diplopia or other change in her vision. Dr. Huertas ordered an MRI scan of her brain when he noticed some ptosis on the right as well as some nystagmus and exotropia of the right eye, which incidentally showed a small left thalamic infarction. Neurology consultation was requested secondary to this acute infarction. As mentioned, she reports difficulties with her balance and increased falls, which brought her into the hospital, but otherwise is denying any focal neurologic problems. She does not have any speech difficulties. She denies any palpitations, fluttering in her chest or chest pain. She has never had a history of previous stroke. She denies any history of hypertension, but admits to a history of hyperlipidemia. She is also a chronic smoker. She denies taking aspirin prior to her admission here. PAST MEDICAL HISTORY: 1. COPD. 2. Hyperlipidemia. 3. Obsessive compulsive disorder. 4. Psychotic disorder. 5. Anxiety. 6. Depression. 7. Right hip fracture requiring ORIF in April 2017. 8. Strabismus HOME MEDICATIONS: 1. Lorazepam 0.5 mg at bedtime. 2. Calcium 600 mg twice daily. 3. Simvastatin 20 mg at bedtime. 4. Perphenazine 8 mg at bedtime. 5. Multivitamins 1 tab in the morning. 6. Ibuprofen 800 mg q.p.m. 7. Quetiapine 100 mg twice daily. 8. Gabapentin 600 mg in the morning. 9. Fluoxetine 20 mg q.a.m. 10. Albuterol as needed. 11. Tylenol 325 mg q.8 hours. ALLERGIES: She reports that CLONAZEPAM and CODEINE when given together will cause her to go into a coma. FAMILY HISTORY: There is a family history of cancer. She reports a sibling is having prediabetes and her brother having hypertension. She is not aware of anyone having strokes in the family. SOCIAL HISTORY: She smokes a pack a day for many years, possibly 40. She rarely drinks alcohol and denies recreational drug use. She lives with her boyfriend. REVIEW OF SYSTEMS: As per the HPI, otherwise negative. PHYSICAL EXAM: Vital Signs: Temperature 98.1, blood pressure 122/71, heart rate 77, oxygen saturation 98% on room air. I note that when she came into the emergency department on 10/02/17, her initial blood pressure was 190/77 and then trended upwards to 218/99 and remained into the 180s through that day on . On general examination, she is seated in a chair, in no acute distress. She appears older than her stated age. Her heart is in a regular rate and rhythm with no murmurs, rubs, or gallops. Lungs are clear to auscultation but with distant lung sounds bilaterally. There are no carotid bruits. Her skin is intact. There is no joint erythema or swelling. On neurologic exam, she is fully awake, alert, oriented. Her speech is fluent without dysarthria or aphasia. On cranial nerve exam, pupils are equal, round, and reactive from 4 to 2 mm bilaterally. She has an alternating exotropia and most of the time focuses with her left eye with the right eye being exotropic. She has occasional upbeating nystagmus and sometimes some horizontal component, which is probably chronic related to her longstanding issues, which she says is present since . She does not have any diplopia and she has full versions with the exception of limitation of up gaze. Her wong are full to confrontation with no extinction to double simultaneous stimulation. Facial sensation, musculature is full and symmetric. Hearing is intact to voice. The palate elevates symmetrically and the tongue is midline. On motor examination, she has normal bulk and tone in the upper and lower extremities. There is a very mild right pronator drift. On confrontational testing, her strength is essentially full with just mild give in her right biceps. Sensation is intact to light touch and pinprick in the upper and lower extremities. [id number] is intact without any ataxia. Reflexes were 2+ in the upper extremities and at the knees. Difficult to elicit at the ankles. Her right toe was upgoing. I did not ambulate her. DIAGNOSTIC STUDIES/LAB DATA: CBC and CMP are overall unremarkable as is her coagulation studies and her urinalysis. Her brain CT on admission showed no evidence for acute intracranial process. Her brain MRI was personally reviewed and shows a small infarct in the left thalamus. In addition, there is diffuse and multifocal elevated T2/FLAIR signal in the periventricular and subcortical white matter in addition to the brain stem most likely consistent with chronic small vessel disease. Her CT angiogram was obtained and reviewed and is not formally read yet, but I noticed left greater than right carotid disease, which does not result in any significant stenosis and there is also some calcific plaque in the vertebral arteries, but there is no significant stenosis and no occlusion. IMPRESSION: Pooja Leblanc is a 71-year-old woman with a history of psychiatric illness as well as hyperlipidemia and longstanding smoking history, who came in with falls and was found to have a left small thalamic infarction. I suspect this is related to small vessel disease based on her MRI scan and probably related to her smoking history and possibly a history of undiagnosed hypertension. She has been started on baby aspirin since she has been here and I would continue with this. I will follow up the formal report of a CT angiogram. She is going to undergo stroke workup including transfer to [address] [place] [id number] for telemetry monitoring, transthoracic echocardiogram with bubble study, fasting lipid profile and hemoglobin A1c as well as therapy evaluations. I have counseled her on the importance of quitting smoking to reduce her risk of future strokes. Of note, her eye findings appeared to be chronic in nature and not related to her current presentation. [id number]/[facility] #: [id number] [facility] CENTERTiffanie
[2017-10-05] MEDS: Atorvastatin* 10 MG TAB PO SCH (21:41)
[2017-10-06] MEDS: Perphenazine TAB* 2 MG PO SCH (00:07)
[2017-10-06] MEDS: Omeprazole CAP* 20 MG PO SCH (05:34)
[2017-10-06] MEDS: Heparin VIAL(*) 5000 UNITS/ML VIAL (FIVE THOUSAND) SUBCUT SCH ×2 (05:35→14:34)
[2017-10-06] MEDS: Docusate CAP* 100 MG PO SCH (08:04)
[2017-10-06] MEDS: QUEtiapine TAB* 100 MG PO SCH (08:05)
[2017-10-06] MEDS: amLODIPine TAB* 5 MG PO SCH (08:05)
[2017-10-06] MEDS: FLUoxetine CAP* 20 MG PO SCH (08:05)
[2017-10-06] MEDS: Aspirin EC Low Dose* 81 MG TAB.EC PO SCH (08:06)
[2017-10-06] MEDS: Gabapentin CAP(*) 300 MG PO SCH (08:08)
--- NOTE | 2017-10-06 11:29 | ECHO ---
Patient: KATHI DIXON [facility] Rec#: [id number] : 1945 Date: 10/06/2017 Age: 71y Height: 162.6 cm / 64.0 in Weight: 57.6 kg / 127.0 lbs Sex: F BSA: 1.6 Room#: 452 Admit Date#: 10/04/2017 Type: Inpatient Referring: Yassine Huertas MD Reading: Gerald Covington MD Employment Agency Manager: Kayleen Thompson RN RDCS CC: Jordon Joseph MD Transthoracic Echocardiogram Indication: Syncope, CVA BP: 156/57 HR: 63 Rhythm: NSR Findings History: HLD, COPD, smoker, psychotic disorder Technical Comments: The study quality is fair. The study is technically limited due to the patient's history of COPD. The study is technically limited due to the patient's smoking history. Completed at 1110. Left Ventricle: The left ventricular chamber size is normal. Basal interventricular septum shows moderate thickening. at 1.5cm. Global left ventricular wall motion and contractility are within normal limits. The left ventricle appears hyperdynamic. The estimated ejection fraction is greater than 65%. There is an E to A reversal in the mitral valve flow pattern suggestive of diastolic dysfunction. Left Atrium: The left atrial chamber size is normal. Right Ventricle: The right ventricular chamber size and systolic function are within normal limits. Right Atrium: The right atrial cavity size is normal. The bubble study is negative.There is no evidence for right to left shunting at the atrial level. Aortic Valve: The aortic valve is trileaflet. The aortic valve leaflets are mildly thickened. There is no evidence of aortic regurgitation. There is no evidence of aortic stenosis. Mitral Valve: The mitral valve leaflets are mildly thickened. There is trace to mild mitral regurgitation. There is no evidence of mitral stenosis. Tricuspid Valve: The tricuspid valve leaflets are normal. There is trace to mild tricuspid regurgitation. No pulmonary hypertension is noted. There is no tricuspid stenosis. Pulmonic Valve: The pulmonic valve appears normal. There is a trace pulmonic regurgitation. There is no pulmonic stenosis. Pericardium: There is no significant pericardial effusion. Aorta: There is no dilatation of the ascending aorta. The aortic arch is not well visualized. There is no dilation of the aortic root. Pulmonary Artery: The main pulmonary artery appears normal. Venous: The inferior vena cava appears normal in size. There is a greater than 50% respiratory change in the inferior vena cava dimension. Contrast: Normal saline was used as contrast for the bubble study. Images 103 and 104. Conclusions Basal interventricular septum shows moderate thickening. at 1.5cm. No significant outflow gradient was noted. Global left ventricular wall motion and contractility are within normal limits. The left ventricle appears hyperdynamic. The estimated ejection fraction is greater than 65%. There is an E to A reversal in the mitral valve flow pattern suggestive of diastolic dysfunction. No significant valvular disease: There is trace to mild mitral regurgitation. There is trace to mild tricuspid regurgitation. No pulmonary hypertension is noted. There is a trace pulmonic regurgitation. The bubble study is negative, there is no evidence for right to left shunting at the atrial level. No reports of prior studies offered for comparison. Measurements Name Value Normal Range RVDdMajor (2D) 2.8 cm (2.2 - 4.4) RAd ISD 4CH 4.3 cm (3.4 - 4.9) RA (A4C)W 3.1 cm (2.9 - 4.6) IVSd (2D) 1 cm (0.6 - 1) LVPWd (2D) 1 cm (0.6 - 1) LVIDd (2D) 3.8 cm (3.6 - 5.4) LVIDs (2D) 2.2 cm - LV FS (2D) 43 % (25 - 45) Aortic Annulus 1.8 cm (1.4 - 2.6) Ao root diameter (2D) 3.2 cm (2.1 - 3.5) Ascending Ao 3.3 cm (2.1 - 3.4) LA dimension (AP) 2D 3.3 cm (2.3 - 3.8) LAd ISD 4CH 4.5 cm (2.9 - 5.3) LA ISD 4CH W 3.8 cm (2.5 - 4.5) Name Value Normal Range LA ESV SP 4CH (A/L) 26 ml - LA ESV SP 2CH (A/L) 36 ml - LA ESV BP (A/L) 34 ml - LA ESV BP (A/L) index 21.4 ml/m2 - LA ESV SP 4CH (MOD) 25 ml - LA ESV SP 2CH (MOD) 35 ml - Name Value Normal Range MV E-wave Vmax 0.67 m/sec - MV deceleration time 350 msec - MV A-wave Vmax 0.98 m/sec - MV E:A ratio 0.68 ratio - LV septal e' Vmax 0.06 m/sec - LV lateral e' Vmax 0.08 m/sec - LV E:e' septal ratio 11.2 ratio - LV E:e' lateral ratio 8.4 ratio - Name Value Normal Range AV Vmax 1.9 m/sec - AV VTI 39.1 cm - AV peak gradient 14.2 mmHg - AV mean gradient 8.3 mmHg - LVOT Vmax 1.2 m/sec - LVOT VTI 23.6 cm - LVOT peak gradient 6.1 mmHg - LVOT mean gradient 3.4 mmHg - Name Value Normal Range TR Vmax 2.7 m/sec - TR peak gradient 29 mmHg - RAP 3 mmHg - RVSP 32 mmHg - IVC diameter 1 cm - Name Value Normal Range PV Vmax 0.88 m/sec -
[2017-10-06 14:18] VITALS: BP 137/71
[2017-10-06] MEDS: Nicotine Inhaler* 10 MG AMP INH PRN (15:44)
--- NOTE | 2017-10-07 13:49 | DS ---
CC: Dr. Joseph * DISCHARGE SUMMARY: DATE OF ADMISSION: 10/02/17 DATE OF DISCHARGE: 10/06/17 PRIMARY CARE PROVIDER: Dr. Joseph. PRIMARY DIAGNOSES: 1. Thalamic stroke. 2. Hypertensive urgency. SECONDARY DIAGNOSES: Include: 1. Increased falls. 2. Chronic obstructive pulmonary disease. 3. Hyperlipidemia. 4. Undiagnosed psychotic disorder. 5. Anxiety and depression. MEDICATIONS ON DISCHARGE: Include: 1. Lorazepam 0.5 mg at bedtime. 2. Calcium carbonate 600 mg twice daily. 3. Simvastatin 20 mg at bedtime. 4. Perphenazine 8 mg at bedtime. 5. Multivitamin 1 tab daily. 6. Ibuprofen 800 mg in the evening. 7. Seroquel 100 mg twice daily. 8. Gabapentin 600 mg in the morning. 9. Prozac 20 mg in the morning. 10. Albuterol 1 puff every 6 hours as needed. 11. Acetaminophen 325 mg every 8 hours as needed. 12. Amlodipine 5 mg daily. 13. Varenicline/Chantix pack. 14. Aspirin 81 mg daily. PERTINENT IMAGING PERFORMED DURING HOSPITAL STAY: Brain MRI, small subacute nonhemorrhagic infarct of the left medial thalamus. Extensive chronic small vessel ischemic changes with multiple chronic lacunar infarcts of the cerebrum and brainstem. CTA head and neck, impression: No internal carotid artery stenosis, no aneurysm , vascular malformation, occlusion or stenosis. Chronic small vessel ischemic changes. There is a heterogenous thyroid with 1.3 cm left thyroid nodule. Stable prominent and mediastinal lymph nodes. Transthoracic echocardiogram did not indicate any PFO. HISTORY OF PRESENT ILLNESS AND HOSPITAL COURSE: This is a 71-year-old female with past medical history as outlined in the history of present illness on the day of admission, presented to the hospital with increased falls. Her presenting history was somewhat vague, although she did indicate that she had some lightheadedness over the preceding days, leading up to her hospital stay. In the emergency room, she was noted with systolic blood pressures from 190 to 210. She was started on new antihypertensives including amlodipine with good control throughout her hospital stay. Systolic pressures on the day of discharge ranged from 114 to 156. She is noted to have a right eye exotropia with some nystagmus both lateral and upward gaze. Because of her increased falls and instability while in the hospital, pursued an MRI, which was notable for small subacute thalamic infarct. Additional stroke workup included CTA head and neck, transthoracic echocardiogram, lipids, and cholesterol. She was started on aspirin. Hemoglobin A1c is 5.4. Her total cholesterol is 156 and LDL was 78 and HDL of 54. She was counseled re-smoking cessation at length and started on Chantix on discharge at her request. She was ambulated with physical therapy and did well with rolling walker, which she has at home. The patient wishes to return home and stable for discharge. There were no complications with the patient's hospital stay. Reasons to return to the hospital including, but not limited to, recurrent or worsening symptoms including chest pain, shortness of breath, nausea, vomiting, lightheadedness, loss of consciousness, worsening lightheadedness or spinning, disequilibrium, double vision, bleeding from any source, inability to obtain or tolerate medications were discussed with the patient. She acknowledged understanding. At followup please; 1. Ensure adequate maintenance of medications. 2. Ensure adequate blood pressure control. 3. Continue smoking cessation counseling. TIME SPENT: Greater than 60 minutes was spent on discharge of this patient, greater than half was spent [id number] with the patient. [id number]/[facility] #: [id number] KODY
== END 2017-10-06 16:30 | disposition home or self-care (01) | DRG 66 ==
LOC: ED 15:13 → MED 19:51 → INTOOBSV 19:51 → OBSVTOIN 19:51 → MED 21:58 → OBSVTOIN 10-04 18:43 → MEDTELE 10-05 16:02
PROVIDERS: ADMIT Hospitalist; ATTEND Internal Medicine
DX: I63.8 Other cerebral infarction (principal); J44.9 Chronic obstructive pulmonary disease, unspecified; E78.5 Hyperlipidemia, unspecified; I16.0 Hypertensive urgency; I10 Essential (primary) hypertension; F42.9 Obsessive-compulsive disorder, unspecified; F29 Unspecified psychosis not due to a substance or known physiological condition; F41.9 Anxiety disorder, unspecified; F32.9 Major depressive disorder, single episode, unspecified; H02.409 Unspecified ptosis of unspecified eyelid; Z79.1 Long term (current) use of non-steroidal anti-inflammatories (NSAID); Z79.899 Other long term (current) drug therapy; Z88.5 Allergy status to narcotic agent; Z88.8 Allergy status to other drugs, medicaments and biological substances; F17.210 Nicotine dependence, cigarettes, uncomplicated; Z80.1 Family history of malignant neoplasm of trachea, bronchus and lung; Z80.0 Family history of malignant neoplasm of digestive organs
CPT/HCPCS: 36415; 70450; 70496; 70498; 70551; 71046; 72170; 80053; 80061; 81003; 82550; 83036; 83605; 83735; 84484; 85025; 85610; 85730; 93005; 93306; 94640; 99406; A9270-GY; G0378; G8978-GP-CJ; G8979-GP-CI; J0360; J1644; Q9967

== ENCOUNTER 2018-08-29 09:40 | Inpatient (IN) | payer MEDICARE, MEDICAID ==
[2018-08-29] MEDS ORDERED: Acetaminophen TAB* 325 MG PO ONE (09:56)
--- NOTE | 2018-08-29 10:07 | ED ---
Influenza-Like Illness - HPI Summary HPI Summary: A 72 y/o female brought in by ambulance presents to the ED c/o fever. Additionally c/o vomiting. In the ED room, the patient has a pulse of 99 BPM, O2 saturation of 91%, respiratory rate of 23, and blood pressure of 200/92. As per triage, "Pt with N/V and fever since last night. Pt noted to be hypertensive , states she took her medications this am but vomited shortly after. O2 saturation 86% on room air. Pt does not wear home O2. Pt states she had some chest discomfort last night that last less than 1 minutes. Pt currently denies SOB or chest pain". According to the patient, she has been experiencing fever and vomiting since last night. She denies any cough, muscular aches, or abdominal pain. She stated that her boyfriend of 36 years just on Thursday night from lung cancer. She stated it has been a rough week, but she has some family support. Her son lives in [place] and her daughter lives in [place]. Patient lives alone. Patient has not received her influenza shot. Patient is on no blood pressure medications. Patient is allergic to Clonidine and Codeine. Patient took Ibuprofen prior to coming to ED. SHx of heavy everyday smoker (1 pack per day). Home Medications Medication Instructions Recorded Confirmed Type Albuterol HFA INHALER* [Ventolin 2 puff INH Q4H PRN 06/20/12 08/29/18 History HFA Inhaler*] FLUoxetine CAP* [Prozac CAP*] 20 mg PO QAM 06/20/12 08/29/18 History Multivitamins/Minerals TAB* 1 tab PO QAM 03/13/17 08/29/18 History [Theragran/minerals TAB*] Perphenazine (NF) 8 mg PO BEDTIME 03/13/17 08/29/18 History Simvastatin TAB(NF) [Zocor 20 MG 20 mg PO BEDTIME 03/13/17 08/29/18 History (NF)] Acetaminophen TAB* [Tylenol TAB*] 650 mg PO Q8H 10/02/17 08/29/18 History Calcium Carbonate [Calcium] 600 mg PO BID 10/02/17 08/29/18 History Gabapentin CAP(*) [Neurontin 300 300 - 600 mg PO SEE INSTRUCTIONS 10/02/1708/29 History CAP(*)] Ibuprofen TAB* [Motrin TAB* 800 MG] 800 mg PO BEDTIME 10/02/17 08/29/18 History LORazepam [Lorazepam] 0.5 mg PO BEDTIME 10/02/17 08/29/18 History QUEtiapine TAB* [Seroquel 100 MG *] 100 mg PO BID 10/02/17 08/29/18 History Aspirin EC TAB* [Ecotrin EC Low 81 mg PO DAILY #30 tab.ec 10/06/17 08/29/18 Rx Dose 81 MG*] amLODIPine TAB* [Norvasc 5 mg TAB*] 5 mg PO DAILY #30 tab 10/06/17 08/29/18 Rx - History of Current Complaint Chief Complaint: EDNauseaVomitDiarrh Hx Obtained From: Patient Onset/Duration: Sudden Onset, Lasting Days, Still Present Associated Signs & Symptoms: Fever, Vomiting - Allergy/Home Medications Allergies/Adverse Reactions: Allergies Allergy/AdvReac Type Severity Reaction Status Date / Time clonazepam AdvReac Mild Altered Verified 08/29/18 10:57 Mental Status codeine AdvReac Mild Altered Verified 08/29/18 10:57 Mental Status PMH/Surg Hx/FS Hx/Imm Hx Endocrine/Hematology History: Denies: Hx Diabetes, Hx Thyroid Disease Cardiovascular History: Reports: Hx Hypercholesterolemia, Other Cardiovascular Problems/Disorders - high cholesterol Denies: Hx Hypertension, Hx Pacemaker/ICD Respiratory History: Reports: Hx Asthma - COPD, Hx Chronic Obstructive Pulmonary Disease (COPD), Hx Pneumonia Denies: Other Respiratory Problems/Disorders GI History: Denies: Hx Ulcer History: Denies: Hx Renal Disease Musculoskeletal History: Reports: Hx Arthritis, Hx Orthopedic Injury - BL knee dislocation Denies: Hx Rheumatoid Arthritis, Hx Osteoporosis Sensory History: Reports: Hx Cataracts - bilateral surgery Denies: Hx Contacts or Glasses, Hx Legally Blind, Hx Hearing Aid Opthamlomology History: Reports: Hx Cataracts - bilateral surgery Denies: Hx Contacts or Glasses, Hx Legally Blind Neurological History: Denies: Hx Seizures Psychiatric History: Reports: Hx Anxiety, Hx Depression Denies: Hx Panic Disorder, Hx Substance Abuse - Surgical History Surgery Procedure, Year, and Place: KNEE 1985,1975; FOOT X2, BREAST SURGERY B9, CATARACT SURGERY Hx Anesthesia Reactions: No Infectious Disease History: No Infectious Disease History: Denies: Hx Clostridium Difficile, Hx Hepatitis, Hx Human Immunodeficiency Virus (HIV), Hx of Known/Suspected MRSA, Hx Shingles, Hx Tuberculosis, Hx Known/ Suspected VRE, Hx Known/Suspected VRSA, History Other Infectious Disease, Traveled Outside the [place] in Last 30 Days - Family History Known Family History: Positive: Hypertension - Social History Alcohol Use: None Hx Substance Use: No Substance Use Type: Reports: None Hx Tobacco Use: Yes Smoking Status (MU): Heavy Every Day Tobacco Smoker Type: Cigarettes Amount Used/How Often: 1 PPD Have You Smoked in the Last Year: Yes Review of Systems Positive: Fever Negative: Chest Pain Negative: Shortness Of Breath, Cough Positive: Vomiting. Negative: Abdominal Pain Negative: Myalgia All Other Systems Reviewed And Are Negative: Yes Physical Exam - Summary Physical Exam Summary: GENERAL: Patient is a well-developed and nourished female who is lying comfortable in the stretcher. Patient is not in any acute respiratory distress. HEAD AND FACE: Normocephalic EYES: PERRLA, EOMI x 2. EARS: Hearing grossly intact. MOUTH: Oropharynx within normal limits. NECK: Supple, trachea is midline, no adenopathy, no JVD, no carotid bruit. CHEST: Symmetric, no tenderness at palpation LUNGS: Clear to auscultation bilaterally. No wheezing or crackles. CVS: Regular rate and rhythm, S1 and S2 present, no murmurs or gallops appreciated. ABDOMEN: Soft, non-tender. Bowel sounds are normal. No abdominal abnormal pulsations. EXTREMITIES: Full ROM in all major joints, no edema, no cyanosis or clubbing. NEURO: Alert and oriented x 3. No acute neurological deficits. Speech is normal and follows commands. SKIN: Dry and warm PSYCH: sad-affect Triage Information Reviewed: Yes Vital Signs On Initial Exam: Initial Vitals Temp Pulse Resp BP Pulse Ox 101.7 F 97 24 200/92 86 08/29/18 09:46 08/29/18 09:46 08/29/18 09:46 08/29/18 09:46 08/29/18 09:46 Vital Signs Reviewed: Yes Diagnostics - Vital Signs Vital Signs Temp Pulse Resp BP Pulse Ox 08/29/18 10:00 98 23 92 08/29/18 09:56 91 08/29/18 09:51 97 24 88 08/29/18 09:50 92 30 87 08/29/18 09:46 101.7 F 97 24 200/92 86 - Laboratory Result Diagrams: 08/29/18 09:21 08/29/18 09:21 Lab Statement: Any lab studies that have been ordered have been reviewed, and results considered in the medical decision making process. - Radiology CXR Radiology Interpretation Completed By: Radiologist Summary of Radiographic Findings: MILD PULMONARY INTERSTITIAL EDEMA. ED PHYSICIAN REVIEWED THIS RADIOLOGY REPORT. - CT CHEST/THORAX CTA CT Interpretation Completed By: Radiologist Summary of CT Findings: 1. NO PULMONARY ARTERIAL FILLING DEFECT TO SUGGEST PULMONARY EMBOLISM. 2. PULMONARY INTERSTITIAL EDEMA. 3. RIGHT PERIHILAR CONSOLIDATION. 4. STABLE MEDIASTINAL LYMPHADENOPATHY. 5. ATHEROSCLEROSIS. 6. ENLARGEMENT OF THE PULMONARY ARTERY SUGGESTIVE OF PULMONARY ARTERIAL HYPERTENSION. ED PHYSICIAN REVIEWED THIS RADIOLOGY REPORT. - EKG 1019 Cardiac Rate: NL - 91 BPM EKG Rhythm: Sinus Rhythm - 91 BPM Summary of EKG Findings: SUPRAVENTRICULAR BIGEMINY, ST DEPRESSIONS SEEN IN THE LATERAL AND INFERIOR LEADS. Re-Evaluation - Re-Evaluation First Eval Re-Evaluation Time: 12:27 Change: Improved Comment: CASE DISCUSSED WITH HOSPITALIST. I DISCUSSED RESULTS WITH PATIENT. THE PATIENT AGREES WITH THIS PLAN. Flu Symptom Course/Dx - Course Course Of Treatment: A 72 y/o female brought in by ambulance presents to the ED c/o fever. Additionally c/o vomiting. According to the patient, she has been experiencing fever and vomiting since last night. She denies any cough, muscular aches, or abdominal pain. Physical examination findings significant for sad-affect. A CXR revealed mild pulmonary interstitial edema. A Chest/ Thorax CTA revealed 1. No pulmonary arterial filling defect to suggest pulmonary embolism. 2. Pulmonary interstitial edema. 3. Right perihilar consolidation. 4. Stable mediastinal lymphadenopathy. 5. Atherosclerosis. 6. Enlargement of the pulmonary arterial hypertension. An EKG revealed NSR of 91 BPM, supraventricular bigeminy, ST depressions seen in the lateral and inferior leads. Hematology, coagulation, Chemistry, urinalysis and serology screens were done. No significant laboratory abnormalities were found hyperglycemia at 112 mg /dL. Influenza screens were both negative. Troponin I was 0.02. In the ED course , the patient received Azithromycin, Ceftriaxone, Tylenol, Lasix, Omnipaque, and IV fluids. Patient care was discussed with hospitalist, Dr. Vega Galan, who accepts patient for admission. Case discussed with hospitalist. I discussed results with patient. The patient agrees with this plan. Patient will be admitted with a diagnosis of pulmonary interstitial edema and pneumonia. Patient is agreeable with this plan. - Diagnoses Provider Diagnoses: Pneumonia, Pulmonary edema - Physician Notifications Discussed Care Of Patient With: Vega Galan Time Discussed With Above Provider: 12:24 Instructed by Provider To: Other - ACCEPTS PATIENT FOR ADMISSION. Discharge - Sign-Out/Discharge Documenting (check all that apply): Patient Departure - ADMIT, Sign-Out Patient - SRIRAM Signing out patient TO: Vega Galan Receiving patient FROM: Santos Fletcher - Discharge Plan Condition: Stable Disposition: ADMITTED TO [facility] - Billing Disposition and Condition Condition: STABLE Disposition: Admitted to [facility] - Attestation Statements Document Initiated by Randall: Yes Documenting Scribe: Faizan Barros Provider For Whom Randall is Documenting (Include Credential): Santos Fletcher MD Scribe Attestation: Faizan Perea scribed for Santos Fletcher MD on 08/29/18 at 1757. Scribe Documentation Reviewed: Yes Provider Attestation: The documentation as recorded by the Faizan joshi accurately reflects the service I personally performed and the decisions made by , Santos Fletcher MD Status of Scribe Document: Viewed
[2018-08-29 10:08] LABS: Influenza A Molecular NEGATIVE (Negative); Influenza B Molecular NEGATIVE (Negative)
[2018-08-29] MEDS: NS 0.9% 1000 ML* 2,000 ML IV ONE (10:11)
[2018-08-29 10:22] LABS: ABS Basophils 0.1 10^3/ul (0-0.2); ABS Eosinophils 0 10^3/ul (0-0.6); ABS Lymphocytes 0.6 10^3/ul (1.0-4.8); ABS Monocytes 0.6 10^3/ul (0-0.8); ABS Neutrophils 11.6 10^3/ul (1.5-7.7); ABS Nucleated RBC 0 10^3/ul; Eosinophil % 0 %; Hematocrit 41 % (35-47); Hemoglobin 13.8 g/dl (12.0-16.0); Lymphocyte % 4.3 %; Mean Corpuscular HGB Conc 34 g/dl (31-36); Mean Corpuscular Hemoglobin 31 pg (27-31); Mean Corpuscular Volume 91 fL (80-97); Mean Platelet Volume 8.6 fL (7.4-10.4); Nucleated Red Blood Cells % 0; Platelet Count 203 10^3/ul (150-450); Red Blood Count 4.51 10^6/ul (4.00-5.40); Red Cell Distribution Width 14 % (10.5-15); White Blood Count 12.8 10^3/ul (3.5-10.8)
[2018-08-29 10:34] LABS: Activated Partial Thrombo Time 28.6 seconds (26.0-36.3); INR 0.95 (0.77-1.02)
[2018-08-29 10:40] LABS: Urine Bacteria 1+ (Absent); Urine Red Blood Cell Trace(0-2/hpf) (Absent); Urine White Blood Cell Trace(0-5/hpf) (Absent)
[2018-08-29 10:42] LABS: Urine Protein 1+(30 mg/dL) (Negative)
[2018-08-29 10:43] LABS: Urine Appearance Clear; Urine Color Yellow; Urine Ketones Negative (Negative); Urine Urobilinogen Negative (Negative)
[2018-08-29 10:44] LABS: Urine Blood Negative (Negative); Urine Nitrite Negative (Negative)
[2018-08-29 10:45] LABS: Urine Bilirubin Negative (Negative); Urine Glucose 1+(50 mg/dL) (Negative)
[2018-08-29 11:11] LABS: Albumin 4.6 g/dL (3.2-5.2); Albumin/Globulin Ratio 1.6 (1-3); BUN/Creatinine Ratio 21.3 (8-20); C Reactive Protein 63.41 mg/L (<8.01); Calcium 9.4 mg/dL (8.6-10.3); EGFR African American 85.8 (>60); EGFR Non-African American 70.9 (>60); Globulin 2.9 g/dL (2-4); Potassium 3.5 mmol/L (3.5-5.0); Total Bilirubin 0.4 mg/dL (0.2-1.0); Total Protein 7.5 g/dL (6.4-8.9)
[2018-08-29 11:13] LABS: Troponin I 0.02 ng/mL (<0.04)
[2018-08-29] MEDS ORDERED: Iohexol 350* (CONTRAST) 500 ML MDV IV ONE (12:13)
[2018-08-29] MEDS ORDERED: Furosemide IV* 10 MG/ML VIAL (40 MG) IV ONE (12:27)
[2018-08-29] MEDS ORDERED: cefTRIAXone(*) 1 GM in NS 0.9% 50 ML* 50 ML IVPB ONE (12:27)
[2018-08-29] MEDS: Azithromycin IV(*) 500 MG in NS 0.9% 250 ML* 250 ML IVPB SCH (13:16)
[2018-08-29] MEDS ORDERED: Albuterol 2.5 MG/3 ML NEB.SOL* (0.083%) INH PRN (13:34)
[2018-08-29] MEDS ORDERED: Acetaminophen TAB* 325 MG PO PRN (13:34)
[2018-08-29] MEDS ORDERED: NS 0.9% 1000 ML* 1,000 ML IV SCH (13:45)
[2018-08-29] MEDS ORDERED: Albuterol/Ipratropium NEB.SOL* Albuterol 2.5 MG/Ipratropium 0.5 MG 3 ML INH SCH ×2 (14:00→15:00)
[2018-08-29] MEDS ORDERED: cefTRIAXone(*) 1 GM in NS 0.9% 50 ML* 50 ML IVPB SCH (14:00)
[2018-08-29] MEDS ORDERED: Azithromycin IV(*) 500 MG in NS 0.9% 250 ML* 250 ML IVPB SCH (14:00)
[2018-08-29] MEDS ORDERED: Gabapentin CAP(*) 300 MG PO SCH (14:00)
[2018-08-29] MEDS: predniSONE TAB* 20 MG PO SCH (14:08)
[2018-08-29 14:33] LABS: Erythrocyte Sed Rate 47 mm/Hr (0-40)
[2018-08-29] MEDS: Gabapentin CAP(*) 300 MG PO SCH ×2 (15:24→19:48)
[2018-08-29] MEDS ORDERED: Albuterol/Ipratropium NEB.SOL* Albuterol 2.5 MG/Ipratropium 0.5 MG 3 ML INH PRN (15:51)
--- NOTE | 2018-08-29 18:14 | HP ---
CC: Dr. Joseph * HISTORY AND PHYSICAL: DATE OF ADMISSION: 08/29/18 PRIMARY CARE PROVIDER: Dr. Joseph. ATTENDING PHYSICIAN WHILE IN THE HOSPITAL: Vega Galan MD * (report dictated by Elie Michael NP) CHIEF COMPLAINT: 1. Fever. 2. Cough. 3. Not feeling well. HISTORY OF PRESENT ILLNESS: Mrs. Leblanc is a 72-year-old female patient with a history of COPD, hyperlipidemia, OCD, psychosis, anxiety, depression, history of hypertension, and a history of CVA, who comes in to the ED today stating that over the last couple of days, she has had a progressive cough; she has been bringing up a white sputum at times. She has not been feeling well. She vomited once this morning. She noted prior to vomiting that she had a fever of 103. She was concerned because of the fact that she had a fever and the fact that she was coughing and feeling a little short of breath. She called 911 to come in to the hospital because of the fever. She denies any recent sick contacts. Denies any abdominal pain. There has been no diarrhea. She denies any myalgias or arthralgias. She states she has not noticed any rashes or any open areas, but she was evaluated, it was noted that she had what appeared to be a consolidation in the right upper lobe and because of these findings, we were asked to evaluate for admission. She presented in to the ED, she was noted to be hypoxic and she typically does not wear O2. PAST MEDICAL HISTORY: Significant for: 1. COPD. 2. Hyperlipidemia. 3. OCD. 4. Psychosis. 5. Anxiety and depression. 6. Hypertension. 7. CVA. PAST SURGICAL HISTORY: 1. She has had a left hip ORIF. 2. Right hip ORIF. 3. Bunionectomy x2. 4. Cataract extraction x2. 5. Left patellar dislocation x2. 6. Lumpectomy. MEDICATIONS: Home medications include: 1. Simvastatin 20 mg at bedtime. 2. Tylenol 650 mg every 8 hours. 3. Gabapentin 600 mg at bedtime. She takes 300 mg in the morning and 300 mg at noontime. 4. Prozac 20 mg p.o. q.a.m. 5. Motrin 800 mg p.o. at bedtime. 6. Calcium carbonate 600 mg p.o. b.i.d. 7. Aspirin 81 mg daily. 8. Ventolin 2 puffs inhaler every 4 hours as needed. 9. Seroquel 100 mg p.o. b.i.d. 10. Perphenazine 8 mg p.o. at bedtime. 11. Multivitamin 1 tablet daily. 12. Ativan 0.5 mg at bedtime. 13. Norvasc 5 mg p.o. daily. ALLERGIES TO MEDICATIONS: Include KLONOPIN and CODEINE. FAMILY HISTORY: Her mother had a history of cancer. Father had a history of lung cancer. SOCIAL HISTORY: She is a pack a day smoker for 50 plus years. Rarely drinks alcohol. She is . Surrogate decision maker is her son, Daniel. REVIEW OF SYSTEMS: There is a documented fever. She denied having any significant weight change. There was no double vision. She denies having any ear discharge. There was no rhinorrhea. She denied having any sore throat. There was no thyroid enlargement. She denied having any chest pain with the exception of light night, she had one episode lasting a minute what she calls light chest pain. She said it was not a pressure. She had had no other associated symptoms. She does admit to dyspnea on exertion. There is no orthopnea. There is no nocturnal dyspnea. There is no abdominal pain. There was 1 episode of vomiting this morning. There was no dysuria, no frequency. There was no seizure, no loss of consciousness. There was no pruritus and no seizure activity was reported. Review of 14 systems was completed, all others negative. PHYSICAL EXAMINATION GENERAL: At this time, Mrs. Leblanc is a 72-year-old female patient. She is sitting in the ED stretcher. She does not appear to be in any acute distress. She appears to be well nourished and well developed. VITAL SIGNS: Blood pressure 142/83, pulse 86, respirations 20, O2 sat 94%, she is now on 2 L, and her temperature when she presented was 101.7. HEENT: Head: Atraumatic, normocephalic. Eyes: EOMs intact. Sclerae anicteric and not pale. Throat: Oral mucosa appears to be dry. No oropharyngeal erythema. NECK: Supple. LUNGS: She did have rhonchi noted in the right upper lobe. She had wheezing, expiratory bilaterally in the lower lobes. She had some crackles in the left base. She had equal diaphragmatic expansion. HEART: Sounds S1, S2. She had a regular rate and rhythm. No murmurs, rubs, or gallops. ABDOMEN: Soft. It was flat, nontender. Bowel sounds are present. EXTREMITIES: Pulses were 2+ throughout. She had no peripheral edema. She is moving all 4 extremities with 5/5 strength. NEUROLOGIC: She is awake. She is alert. She is oriented x3. Tongue is midline. No facial drooping. She had no gross focal deficits. SKIN: Intact. DIAGNOSTIC STUDIES/LAB DATA: WBC of 12.8, RBC of 4.51, hemoglobin 13.8, hematocrit 41, platelet count 203. INR 0.95. PTT of 28.6. Sodium was 139, potassium was 3.5, chloride 105, bicarb 23, BUN was 17, creatinine of 0.80, glucose of 112. Lactate 1.1. Calcium 9.4. Total bili 0.4, AST 16, ALT 15, alk phos 98. Troponin 0.02. CRP was 63. BNP 159. Albumin 4.6. Urine showed 1 + protein, 1+ bacteria, 1+ glucose. She had a negative flu swab. She had an EKG obtained today, which showed a normal sinus rhythm with PACs, rate of 91, she had a normal axis, but she did have some ST depression diffusely and also did have biphasic T waves in V2, V3 and flattened V5 and V6. When it was reviewed with previous EKG, the ST depressions are new and the T wave inversions are new as well. She did have a chest CTA obtained today, which showed no pulmonary arterial filling defect to suggest PE, pulmonary interstitial edema, right perihilar consolidation, stable mediastinal lymphadenopathy, atherosclerosis, enlargement of the pulmonary artery suggestive of pulmonary arterial hypertension. She had a chest x-ray obtained today, which showed mild pulmonary interstitial edema. Old medical records were reviewed. ASSESSMENT AND PLAN: Mrs. Leblanc is a 72-year-old female patient coming in to the ED today with complaints of fever and cough. On evaluation, it appears that she was found to have pneumonia. She will be admitted under inpatient status for: 1. Chronic obstructive pulmonary disease exacerbation with pneumonia and evidence of sepsis, but not septic shock or severe sepsis. She does have a white count of 12.8. In addition to this, she had a fever when she presented and her heart rate was over 90 and respiratory rate was over 20. She does meet sepsis criteria in the setting of pneumonia. At this point, she did receive 2 L of fluid in the ED, which was 30 cc per kg bolus. She has had blood cultures. I will send off a sputum culture. In addition to this, legionella antigen and Strep pneumo antigen. We will start her on Rocephin and azithromycin. I will place her on steroids and aggressive nebulizers with pulmonary toileting that has been instituted as well and we will continue to follow her closely. She will be placed on DuoNeb, p.r.n. albuterol, Dulera. Continue O2 and aggressive pulmonary toileting. 2. Electrocardiogram changes. This could be just demand ischemia in the setting of the hypoxia she had when she presented. On repeating the EKG, cycling her troponins, ordered an echo and she will be placed on telemetry. She is on aspirin. She is on statin. We will continue this. I would be hesitant to start a beta- matt in the setting of COPD exacerbation, but she is not having any symptoms currently, so we will follow. 3. Hyperlipidemia. Continue statin therapy. 4. History of obsessive-compulsive disorder, psychosis, anxiety, and depression. Continue her current meds as prescribed. 5. History of cerebrovascular accident. Continue with secondary prevention. 6. Hypertension. Continue meds as prescribed. 7. DVT prophylaxis. She is high risk. She will be placed on heparin subcu. 8. Fluids, electrolytes, and nutrition. She can have a regular diet. 9. Code status. She is a full code. TIME SPENT: On the admission 60 minutes, greater than half the time spent face- to- face with the patient obtaining my history and physical; other half time spent going over the plan of care with the patient and implementing plan of care. I did discuss the plan of care with my attending, Dr. Galan; he is in agreement. ELIE MICHAEL NP [id number]/[facility] #: [id number] MTDD
[2018-08-29] MEDS: Perphenazine TAB* 2 MG PO SCH (19:47)
[2018-08-29] MEDS: LORazepam TAB(*) 0.5 MG PO SCH (19:48)
[2018-08-29] MEDS: QUEtiapine TAB* 100 MG PO SCH (19:49)
[2018-08-29] MEDS: Calcium Carbonate TAB* 1250 MG (CALCIUM 500 MG) PO SCH (19:49)
[2018-08-29] MEDS: Atorvastatin* 10 MG TAB PO SCH (19:49)
[2018-08-29] MEDS: Mometasone/Formoter 200/5 MDI INH SCH (20:38)
[2018-08-29] MEDS: Heparin VIAL(*) 5000 UNITS/ML VIAL (FIVE THOUSAND) SUBCUT SCH (22:20)
[2018-08-30] MEDS: Heparin VIAL(*) 5000 UNITS/ML VIAL (FIVE THOUSAND) SUBCUT SCH ×3 (05:41→21:11)
[2018-08-30 07:01] LABS: ABS Basophils 0 10^3/ul (0-0.2); ABS Eosinophils 0 10^3/ul (0-0.6); ABS Lymphocytes 1.4 10^3/ul (1.0-4.8); ABS Monocytes 0.4 10^3/ul (0-0.8); ABS Neutrophils 5.8 10^3/ul (1.5-7.7); ABS Nucleated RBC 0 10^3/ul; Eosinophil % 0.1 %; Hematocrit 35 % (35-47); Hemoglobin 11.9 g/dl (12.0-16.0); Lymphocyte % 18.7 %; Mean Corpuscular HGB Conc 34 g/dl (31-36); Mean Corpuscular Hemoglobin 31 pg (27-31); Mean Corpuscular Volume 92 fL (80-97); Nucleated Red Blood Cells % 0.1; Platelet Count 181 10^3/ul (150-450); Red Blood Count 3.82 10^6/ul (4.00-5.40); Red Cell Distribution Width 14 % (10.5-15); White Blood Count 7.7 10^3/ul (3.5-10.8)
[2018-08-30 07:07] LABS: INR 1.03 (0.77-1.02)
[2018-08-30 07:23] LABS: BUN/Creatinine Ratio 28.6 (8-20); Calcium 8.5 mg/dL (8.6-10.3); EGFR African American 89.7 (>60); EGFR Non-African American 74.1 (>60); Potassium 3.3 mmol/L (3.5-5.0)
[2018-08-30] MEDS: Mometasone/Formoter 200/5 MDI INH SCH ×2 (08:45→20:42)
[2018-08-30] MEDS ORDERED: amLODIPine TAB* 5 MG PO SCH (09:00)
[2018-08-30] MEDS ORDERED: Potassium Chlor TAB* 20 MEQ TAB.ER PO ONE (11:14)
[2018-08-30] MEDS: Gabapentin CAP(*) 300 MG PO SCH ×3 (11:15→21:10)
[2018-08-30] MEDS: cefTRIAXone(*) 1 GM in NS 0.9% 50 ML* 50 ML IVPB SCH (11:15)
[2018-08-30] MEDS: predniSONE TAB* 20 MG PO SCH (11:15)
[2018-08-30] MEDS: Multivitamins/Minerals TAB PO SCH (11:15)
[2018-08-30] MEDS: QUEtiapine TAB* 100 MG PO SCH ×2 (11:15→21:09)
[2018-08-30] MEDS: FLUoxetine CAP* 20 MG PO SCH (11:16)
[2018-08-30] MEDS: Aspirin EC TAB* 81 MG TAB.EC PO SCH (11:16)
[2018-08-30] MEDS: Calcium Carbonate TAB* 1250 MG (CALCIUM 500 MG) PO SCH ×2 (11:17→21:10)
[2018-08-30] MEDS: Azithromycin IV(*) 500 MG in NS 0.9% 250 ML* 250 ML IVPB SCH (13:21)
[2018-08-30] MEDS ORDERED: Mouth Piece, Nicotine* 1 EACH CARTRIDGE INH ONE (14:00)
--- NOTE | 2018-08-30 14:31 | ECHO ---
Patient: KATHI DIXON [facility] Rec#: [id number] : 1945 Date: 08/30/2018 Age: 72y Height: 162.56 cm / 64.0 in Weight: 58.51 kg / 129.0 lbs Sex: F BSA: 1.62 Room#: [facility] Admit Date#: 08/29/2018 Type: Inpatient Referring: Elie Michael NP Reading: Klever Sarabia MD Lead Refinery Supervisor: Cele Escobar RDCS CC: Jordon Joseph MD Transthoracic Echocardiogram Indication: Abn EKG BP: 108/57 HR: 68 Rhythm: NSR Findings History: COPD,HTN,psyche issues,HTN,prior CVA. Technical Comments: The study was technically limited due to the patient's inability to lay in the left lateral decubitus position. Completed at 1145. Left Ventricle: The left ventricular chamber size is decreased. Mild concentric left ventricular hypertrophy is observed. Global left ventricular wall motion and contractility are within normal limits. There is normal left ventricular systolic function. The estimated ejection fraction is 55-60%. Abnormal left ventricular diastolic function is observed. Left Atrium: The left atrial chamber size is normal. Right Ventricle: The right ventricular cavity size is normal. The right ventricular global systolic function is normal. Right Atrium: The right atrial cavity size is normal. Aortic Valve: The aortic valve is trileaflet. There is no evidence of aortic valve thickening. There is no evidence of aortic regurgitation. There is no evidence of aortic stenosis. Mitral Valve: The mitral valve leaflets are mildly thickened. There is a trace of mitral regurgitation. There is no evidence of mitral stenosis. Tricuspid Valve: The tricuspid valve leaflets are normal. There is mild tricuspid regurgitation. There is evidence of moderate pulmonary hypertension. There is no tricuspid stenosis. Pulmonic Valve: The pulmonic valve structure is not well visualized. Pericardium: The pericardium appears normal. Aorta: There is no dilatation of the ascending aorta. The aortic arch is not well visualized. There is no dilation of the aortic root. Pulmonary Artery: The main pulmonary artery appears normal. Venous: The inferior vena cava is dilated. There is less than 50% respiratory change in the inferior vena cava dimension. Summary: There are no significant changes when compared to the previous study done on 10/06/17 Conclusions Global left ventricular wall motion and contractility are within normal limits. There is normal left ventricular systolic function. The estimated ejection fraction is 55-60%. The right ventricular global systolic function is normal. There is no evidence of aortic stenosis. There is a trace of mitral regurgitation. There is mild tricuspid regurgitation. There is evidence of moderate pulmonary hypertension. The pericardium appears normal. Measurements Name Value Normal Range RVIDd (AP) 2D 2.4 cm (0.9 - 2.6) RVDdMajor (2D) 3 cm (2.2 - 4.4) RAd ISD 4CH 3.8 cm (3.4 - 4.9) RA (A4C)W 2.6 cm (2.9 - 4.6) IVSd (2D) 1.1 cm (0.6 - 1) LVPWd (2D) 1.3 cm (0.6 - 1) LVIDd (2D) 3.5 cm (3.6 - 5.4) LVIDs (2D) 2.2 cm - LV FS (2D) 37 % (25 - 45) Aortic Annulus 1.8 cm (1.4 - 2.6) Ao root diameter (2D) 3.2 cm (2.1 - 3.5) Ascending Ao 3.3 cm (2.1 - 3.4) LA dimension (AP) 2D 2.7 cm (2.3 - 3.8) LAd ISD 4CH 4.2 cm (2.9 - 5.3) LA ISD 4CH W 2.8 cm (2.5 - 4.5) Name Value Normal Range LA ESV SP 4CH (A/L) 50 ml - LA ESV SP 2CH (A/L) 37 ml - LA ESV BP (A/L) 45 ml - LA ESV BP (A/L) index 27.77 ml/m2 - LA ESV SP 4CH (MOD) 46 ml - LA ESV SP 2CH (MOD) 35 ml - Name Value Normal Range MV E-wave Vmax 1 m/sec - MV deceleration time 206 msec - MV A-wave Vmax 0.8 m/sec - MV E:A ratio 1.16 ratio - LV septal e' Vmax 0.07 m/sec - LV lateral e' Vmax 0.09 m/sec - LV E:e' septal ratio 14.28 ratio - LV E:e' lateral ratio 11.11 ratio - Name Value Normal Range AV Vmax 1.7 m/sec - AV VTI 39 cm - AV peak gradient 11.08 mmHg - AV mean gradient 6.2 mmHg - LVOT Vmax 1.1 m/sec - LVOT VTI 28 cm - LVOT peak gradient 4.68 mmHg - LVOT mean gradient 2.23 mmHg - Name Value Normal Range TR Vmax 3.3 m/sec - TR peak gradient 44 mmHg - RAP 15 mmHg - RVSP 59 mmHg - IVC diameter 2.4 cm -
--- NOTE | 2018-08-30 15:00 | PN ---
Subjective Date of Service: 08/30/18 Interval History: Ms. Leblanc is feeling better today. She denies any history of COPD. Denies CP or SOB. Requesting nicotine replacement. Not particularly open to smoking cessation. Denies N/V/D. Family History: Unchanged from Admission Social History: Unchanged from Admission Past Medical History: Unchanged from Admission Objective Active Medications: Acetaminophen (Tylenol Tab*) 650 mg PO Q4H PRN FEVER/PAIN Albuterol (Ventolin 2.5 Mg/3 Ml Neb.Arline*) 2.5 mg INH Q2H PRN SOB/WHEEZING Albuterol/Ipratropium (Duoneb (Albuterol 2.5 Mg/Ipratropium 0.5 Mg)) 1 neb INH Q4H PRN SOB/WHEEZING Amlodipine Besylate (Norvasc Tab*) 5 mg PO DAILY NATHANIEL Aspirin (Aspirin Ec Tab*) 81 mg PO DAILY NATHANIEL Atorvastatin Calcium (Lipitor*) 10 mg PO BEDTIME NATHANIEL Calcium Carbonate (Calcium Carbonate Tab*) 1,250 mg PO BID NATHANIEL Fluoxetine HCl (Prozac Cap*) 20 mg PO QAM NATHANIEL Gabapentin (Neurontin Cap(*)) 300 mg PO 0900,1200 NATHANIEL Gabapentin (Neurontin Cap(*)) 600 mg PO BEDTIME NATHANIEL Heparin Sodium (Porcine) (Heparin Vial(*)) 5,000 units SUBCUT Q8HR NATHANIEL Azithromycin 500 mg/ Sodium (Chloride) 250 mls @ 250 mls/hr IVPB Q24H NATHANIEL Ceftriaxone Sodium 1 gm/ (Sodium Chloride) 50 mls @ 200 mls/hr IVPB Q24HR NATHANIEL Lorazepam (Ativan Tab(*)) 0.5 mg PO BEDTIME NATHANIEL Mometasone Furoate/Formoterol Fumar (Dulera 200/5 Mdi*) 2 puff INH BID NATHANIEL Multivitamins/Minerals (Theragran/Minerals Tab*) 1 tab PO QAM NATHANIEL Nicotine (Nicotine Inhaler*) 10 mg INH Q2H PRN CRAVING Nicotine (Nicotine Patch 14 Mg/24 Hr*) 1 patch TRANSDERM DAILY NATHANIEL Perphenazine (Trilafon Tab*) 8 mg PO BEDTIME NATHANIEL; Protocol Pharmacy Profile Note (Nicotine Patch Removal Note*) 1 note FOLLOW UP 2100 NATHANIEL Prednisone (Deltasone Tab*) 60 mg PO DAILY NATHANIEL Quetiapine Fumarate (Seroquel Tab*) 100 mg PO BID [facility] Vital Signs - 8 hr 08/30/18 08/30/18 08/30/18 07:29 08:00 08:45 Temperature 98.3 F Pulse Rate 79 85 82 Respiratory 26 18 18 Rate Blood Pressure 134/67 (mmHg) O2 Sat by Pulse 90 81 91 Oximetry 08/30/18 08/30/18 08/30/18 08:50 11:15 11:43 Temperature 98.3 F Pulse Rate 73 Respiratory 20 16 16 Rate Blood Pressure 145/63 (mmHg) O2 Sat by Pulse 94 Oximetry Oxygen Devices in Use Now: Nasal Cannula - 5L Appearance: Elderly female sitting in bed in NAD Eyes: No Scleral Icterus Ears/Nose/Mouth/Throat: Mucous Membranes Moist Neck: NL Appearance and Movements; NL JVP, Trachea Midline Respiratory: Symmetrical Chest Expansion and Respiratory Effort, Clear to Auscultation - Diminished Cardiovascular: NL Sounds; No Murmurs; No JVD, RRR Abdominal: NL Sounds; No Tenderness; No Distention Extremities: No Edema Skin: No Rash or Ulcers Neurological: Alert and Oriented x 3 Lines/Tubes/Other Access: Clean, Dry and Intact Peripheral IV Nutrition: Taking PO's Result Diagrams: 08/30/18 06:32 08/30/18 06:32 Assess/Plan/Problems-Billing Assessment: Ms. Leblanc is a 72 yo F with PMH of CVA, HTN, HLD, anxiety, depression, and COPD; who presented to the ED with c/o fever, cough, and malaise and was found to have sepsis and a COPD exacerbation secondary to community-acquired pneumonia. - Patient Problems (1) Community acquired pneumonia Code(s): J18.9 - PNEUMONIA, UNSPECIFIED ORGANISM Comment: - Requiring 5L NC - Negative legionella and strep pneumo urine antigens; sputum culture pending - CTA shows right perihilar consolidation and interstitial edema, but no PE - Continue azithromycin, ceftriaxone (2) COPD exacerbation Code(s): J44.1 - CHRONIC OBSTRUCTIVE PULMONARY DISEASE W (ACUTE) EXACERBATION Comment: - Secondary to pneumonia - Not open to smoking cessation, but using nicotine replacement while hospitalized - Continue nebs, prednisone, Dulera (3) Sepsis Comment: - Secondary to pneumonia - Met sepsis criteria with leukocytosis, tachycardia, tachypnea, fever; met qSOFA criteria with tachypnea - Appropriate fluid bolus given on arrival - Plan as above (4) Acute electrocardiogram changes Code(s): R94.31 - ABNORMAL ELECTROCARDIOGRAM [ECG] [EKG] Comment: - On admission ST depression and biphasic T waves noted; EKG this morning shows normal T waves and very minimal ST depression in V4 and V5, improved from yesterday - No chest pain and negative trops x3 - Echo shows EF 55-60%, normal LV systolic function, moderate pHTN - Suspect this was secondary to demand ischemia and hypoxia (5) Asymptomatic bacteriuria Code(s): R82.71 - BACTERIURIA Comment: - No c/o dysuria, frequency, suprapubic pain - Urine culture grew 50-75k colonies of klebsiella pneumoniae, likely colonization - Will hold off on antibiotics at this time as long as she is asymptomatic (6) Hypertension Code(s): I10 - ESSENTIAL (PRIMARY) HYPERTENSION Comment: - Normotensive, SBP 100-140s - Continue amlodipine (7) Hyperlipidemia Code(s): E78.5 - HYPERLIPIDEMIA, UNSPECIFIED Comment: - Continue atorvastatin (8) History of CVA (cerebrovascular accident) Code(s): Z86.73 - PRSNL HX OF TIA (TIA), AND CEREB INFRC W/O RESID DEFICITS Comment: - No residual deficits (9) Anxiety and depression Code(s): F41.8 - OTHER SPECIFIED ANXIETY DISORDERS Comment: - Continue fluoxetine, gabapentin, seroquel and perphenazine (10) DVT prophylaxis Comment: - Heparin SQ (11) Full code status Code(s): Z78.9 - OTHER SPECIFIED HEALTH STATUS Comment: Status and Disposition: Inpatient for COPD exacerbation and pneumonia requiring oxygen and IV antibiotics. Anticipate d/c home when medically stable, likely 2 more days. Attending: Vega Galan
[2018-08-30] MEDS: Nicotine PATCH 14 MG/24 HR* PATCH TRANSDERM SCH (15:18)
[2018-08-30] MEDS: Nicotine Inhaler* 10 MG AMP INH PRN ×3 (15:18→22:34)
[2018-08-30] MEDS: Perphenazine TAB* 2 MG PO SCH (21:08)
[2018-08-30] MEDS: Atorvastatin* 10 MG TAB PO SCH (21:09)
[2018-08-30] MEDS: LORazepam TAB(*) 0.5 MG PO SCH (21:09)
[2018-08-30] MEDS: Nicotine Patch Removal NOTE FOLLOW UP SCH (21:12)
[2018-08-31] MEDS ORDERED: hydrALAZINE TAB* 10 MG PO ONE (05:36)
[2018-08-31] MEDS: Heparin VIAL(*) 5000 UNITS/ML VIAL (FIVE THOUSAND) SUBCUT SCH ×3 (05:48→21:33)
[2018-08-31] MEDS: Nicotine Inhaler* 10 MG AMP INH PRN ×5 (05:52→20:25)
[2018-08-31 07:51] LABS: BUN/Creatinine Ratio 29.9 (8-20); Calcium 8.8 mg/dL (8.6-10.3); EGFR African American 89.7 (>60); EGFR Non-African American 74.1 (>60); Potassium 3.3 mmol/L (3.5-5.0)
[2018-08-31] MEDS: Mometasone/Formoter 200/5 MDI INH SCH ×2 (08:00→20:13)
--- NOTE | 2018-08-31 08:54 | PN ---
Subjective Date of Service: 08/31/18 Interval History: Ms. Leblanc is feeling much better today. She offers no complaints. Would like to get off oxygen so that she is able to move around more. Still having a mildly productive cough. Denies CP, SOB, N/V. Appetite good. Using nicotine replacement with good relief in cravings. Family History: Unchanged from Admission Social History: Unchanged from Admission Past Medical History: Unchanged from Admission Objective Active Medications: Acetaminophen (Tylenol Tab*) 650 mg PO Q4H PRN FEVER/PAIN Albuterol (Ventolin 2.5 Mg/3 Ml Neb.Arline*) 2.5 mg INH Q2H PRN SOB/WHEEZING Albuterol/Ipratropium (Duoneb (Albuterol 2.5 Mg/Ipratropium 0.5 Mg)) 1 neb INH Q4H PRN SOB/WHEEZING Amlodipine Besylate (Norvasc Tab*) 5 mg PO DAILY NATHANIEL Aspirin (Aspirin Ec Tab*) 81 mg PO DAILY NATHANIEL Atorvastatin Calcium (Lipitor*) 10 mg PO BEDTIME NATHANIEL Calcium Carbonate (Calcium Carbonate Tab*) 1,250 mg PO BID NATHANIEL Fluoxetine HCl (Prozac Cap*) 20 mg PO QAM NATHANIEL Gabapentin (Neurontin Cap(*)) 300 mg PO 0900,1200 NATHANIEL Gabapentin (Neurontin Cap(*)) 600 mg PO BEDTIME NATHANIEL Heparin Sodium (Porcine) (Heparin Vial(*)) 5,000 units SUBCUT Q8HR NATHANIEL Azithromycin 500 mg/ Sodium (Chloride) 250 mls @ 250 mls/hr IVPB Q24H NATHANIEL Ceftriaxone Sodium 1 gm/ (Sodium Chloride) 50 mls @ 200 mls/hr IVPB Q24HR NATHANIEL Lorazepam (Ativan Tab(*)) 0.5 mg PO BEDTIME NATHANIEL Mometasone Furoate/Formoterol Fumar (Dulera 200/5 Mdi*) 2 puff INH BID NATHANIEL Multivitamins/Minerals (Theragran/Minerals Tab*) 1 tab PO QAM NATHANIEL Nicotine (Nicotine Inhaler*) 10 mg INH Q2H PRN CRAVING Nicotine (Nicotine Patch 14 Mg/24 Hr*) 1 patch TRANSDERM DAILY NATHANIEL Perphenazine (Trilafon Tab*) 8 mg PO BEDTIME NATHANIEL; Protocol Potassium Chloride (Klor Con Er Tab*) 20 meq PO BID NATHANIEL Prednisone (Deltasone Tab*) 60 mg PO DAILY NATHANIEL Quetiapine Fumarate (Seroquel Tab*) 100 mg PO BID [facility] Vital Signs - 8 hr 08/31/18 08/31/18 08/31/18 04:00 05:33 06:37 Temperature 98.6 F 98.0 F Pulse Rate 78 77 Respiratory 20 20 Rate Blood Pressure 168/81 170/100 153/71 (mmHg) O2 Sat by Pulse 97 96 Oximetry Oxygen Devices in Use Now: Nasal Cannula - 5L Appearance: Elderly female sitting in bed in NAD Eyes: No Scleral Icterus Ears/Nose/Mouth/Throat: Mucous Membranes Moist Neck: NL Appearance and Movements; NL JVP, Trachea Midline Respiratory: Symmetrical Chest Expansion and Respiratory Effort, - - Scattered rales and wheezes Cardiovascular: NL Sounds; No Murmurs; No JVD, RRR Abdominal: NL Sounds; No Tenderness; No Distention Extremities: No Edema Skin: No Rash or Ulcers Neurological: Alert and Oriented x 3 Lines/Tubes/Other Access: Clean, Dry and Intact Peripheral IV Nutrition: Taking PO's Result Diagrams: 08/30/18 06:32 08/31/18 07:14 Assess/Plan/Problems-Billing Assessment: Ms. Leblanc is a 72 yo F with PMH of CVA, HTN, HLD, anxiety, depression, and COPD; who presented to the ED with c/o fever, cough, and malaise and was found to have sepsis and a COPD exacerbation secondary to community-acquired pneumonia. - Patient Problems (1) Community acquired pneumonia Code(s): J18.9 - PNEUMONIA, UNSPECIFIED ORGANISM Comment: - Still requiring 5L NC - Negative legionella and strep pneumo urine antigens; influenza negative; sputum culture pending - CTA shows right perihilar consolidation and interstitial edema, but no PE - Wean oxygen today - Continue azithromycin, ceftriaxone (2) COPD exacerbation Code(s): J44.1 - CHRONIC OBSTRUCTIVE PULMONARY DISEASE W (ACUTE) EXACERBATION Comment: - Secondary to pneumonia - Not open to smoking cessation, but using nicotine replacement while hospitalized - Continue nebs, prednisone, Dulera (3) Sepsis Comment: - Resolved - Secondary to pneumonia - Met sepsis criteria with leukocytosis, tachycardia, tachypnea, fever; met qSOFA criteria with tachypnea - Appropriate fluid bolus given on arrival - Plan as above (4) Acute electrocardiogram changes Code(s): R94.31 - ABNORMAL ELECTROCARDIOGRAM [ECG] [EKG] Comment: - On admission ST depression and biphasic T waves noted; EKG this morning shows normal T waves and very minimal ST depression in V4 and V5, improved from yesterday - No chest pain and negative trops x3 - Echo shows EF 55-60%, normal LV systolic function, moderate pHTN - Suspect this was secondary to demand ischemia and hypoxia (5) Asymptomatic bacteriuria Code(s): R82.71 - BACTERIURIA Comment: - No c/o dysuria, frequency, suprapubic pain - Urine culture grew 50-75k colonies of klebsiella pneumoniae, likely colonization - Will hold off on antibiotics at this time as long as she remains asymptomatic (6) Hypertension Code(s): I10 - ESSENTIAL (PRIMARY) HYPERTENSION Comment: - Hypertensive, SBP 140-170s - Increase amlodipine to 10mg (7) Hyperlipidemia Code(s): E78.5 - HYPERLIPIDEMIA, UNSPECIFIED Comment: - Continue atorvastatin (8) History of CVA (cerebrovascular accident) Code(s): Z86.73 - PRSNL HX OF TIA (TIA), AND CEREB INFRC W/O RESID DEFICITS Comment: - No residual deficits (9) Anxiety and depression Code(s): F41.8 - OTHER SPECIFIED ANXIETY DISORDERS Comment: - Continue fluoxetine, gabapentin, seroquel, perphenazine (10) DVT prophylaxis Comment: - Heparin SQ (11) Full code status Code(s): Z78.9 - OTHER SPECIFIED HEALTH STATUS Comment: Status and Disposition: Inpatient for COPD exacerbation and pneumonia requiring oxygen and IV antibiotics. Anticipate d/c home when medically stable, possibly tomorrow if she is able to be weaned off oxygen. Attending: Vega Galan
[2018-08-31] MEDS: predniSONE TAB* 20 MG PO SCH (08:58)
[2018-08-31] MEDS: Calcium Carbonate TAB* 1250 MG (CALCIUM 500 MG) PO SCH ×2 (08:58→20:25)
[2018-08-31] MEDS: Aspirin EC TAB* 81 MG TAB.EC PO SCH (09:00)
[2018-08-31] MEDS: Gabapentin CAP(*) 300 MG PO SCH ×3 (09:00→20:23)
[2018-08-31] MEDS: FLUoxetine CAP* 20 MG PO SCH (09:00)
[2018-08-31] MEDS: Multivitamins/Minerals TAB PO SCH (09:00)
[2018-08-31] MEDS: QUEtiapine TAB* 100 MG PO SCH ×2 (09:01→20:24)
[2018-08-31] MEDS: Nicotine PATCH 14 MG/24 HR* PATCH TRANSDERM SCH (09:10)
[2018-08-31] MEDS: cefTRIAXone(*) 1 GM in NS 0.9% 50 ML* 50 ML IVPB SCH (09:13)
[2018-08-31] MEDS: Potassium Chlor TAB* 20 MEQ TAB.ER PO SCH ×2 (09:21→20:23)
[2018-08-31] MEDS: amLODIPine TAB* 5 MG PO SCH (09:21)
[2018-08-31] MEDS: Azithromycin IV(*) 500 MG in NS 0.9% 250 ML* 250 ML IVPB SCH (13:25)
[2018-08-31] MEDS ORDERED: LORazepam TAB(*) 0.5 MG PO ONE (16:46)
[2018-08-31] MEDS: Perphenazine TAB* 2 MG PO SCH (20:22)
[2018-08-31] MEDS: Atorvastatin* 10 MG TAB PO SCH (20:24)
[2018-08-31] MEDS: LORazepam TAB(*) 0.5 MG PO SCH (20:24)
[2018-08-31] MEDS: Nicotine Patch Removal NOTE FOLLOW UP SCH (20:47)
[2018-09-01 05:00] LABS: ABS Basophils 0.1 10^3/ul (0-0.2); ABS Eosinophils 0 10^3/ul (0-0.6); ABS Lymphocytes 2.7 10^3/ul (1.0-4.8); ABS Monocytes 0.5 10^3/ul (0-0.8); ABS Neutrophils 3.4 10^3/ul (1.5-7.7); ABS Nucleated RBC 0 10^3/ul; Eosinophil % 0.2 %; Hematocrit 34 % (35-47); Hemoglobin 11.7 g/dl (12.0-16.0); Lymphocyte % 40.7 %; Mean Corpuscular HGB Conc 34 g/dl (31-36); Mean Corpuscular Hemoglobin 31 pg (27-31); Mean Corpuscular Volume 91 fL (80-97); Mean Platelet Volume 8.5 fL (7.4-10.4); Nucleated Red Blood Cells % 0.1; Platelet Count 202 10^3/ul (150-450); Red Blood Count 3.78 10^6/ul (4.00-5.40); Red Cell Distribution Width 13 % (10.5-15); White Blood Count 6.7 10^3/ul (3.5-10.8)
[2018-09-01 05:16] LABS: BUN/Creatinine Ratio 28.9 (8-20); Calcium 8.8 mg/dL (8.6-10.3); EGFR Non-African American 75.2 (>60); Potassium 3.6 mmol/L (3.5-5.0)
[2018-09-01] MEDS: Heparin VIAL(*) 5000 UNITS/ML VIAL (FIVE THOUSAND) SUBCUT SCH ×3 (05:23→22:37)
[2018-09-01] MEDS: Mometasone/Formoter 200/5 MDI INH SCH ×2 (07:55→21:34)
[2018-09-01] MEDS: Calcium Carbonate TAB* 1250 MG (CALCIUM 500 MG) PO SCH ×2 (08:03→20:24)
[2018-09-01] MEDS: QUEtiapine TAB* 100 MG PO SCH ×2 (08:03→20:23)
[2018-09-01] MEDS: amLODIPine TAB* 5 MG PO SCH (08:03)
[2018-09-01] MEDS: predniSONE TAB* 20 MG PO SCH (08:03)
[2018-09-01] MEDS: Aspirin EC TAB* 81 MG TAB.EC PO SCH (08:03)
[2018-09-01] MEDS: Gabapentin CAP(*) 300 MG PO SCH ×3 (08:03→20:24)
[2018-09-01] MEDS: FLUoxetine CAP* 20 MG PO SCH (08:03)
[2018-09-01] MEDS: Nicotine Inhaler* 10 MG AMP INH PRN ×4 (08:04→22:37)
[2018-09-01] MEDS: Nicotine PATCH 14 MG/24 HR* PATCH TRANSDERM SCH (08:04)
[2018-09-01] MEDS: Multivitamins/Minerals TAB PO SCH (08:04)
[2018-09-01] MEDS: cefTRIAXone(*) 1 GM in NS 0.9% 50 ML* 50 ML IVPB SCH (08:22)
[2018-09-01] MEDS: Azithromycin IV(*) 500 MG in NS 0.9% 250 ML* 250 ML IVPB SCH (12:46)
[2018-09-01] MEDS: predniSONE TAB* 50 MG PO SCH (12:47)
--- NOTE | 2018-09-01 13:44 | PN ---
Subjective Date of Service: 09/01/18 Interval History: Ms. Leblanc is feeling fine today. She is anxious to go home. She offers no complaints and denies SOB or CP. She has been up ambulating to the bathroom with assistance. Still on 1L NC. Nursing has been unable to titrate further. She denies N/V. Appetite is good. Agreeable to staying another night if necessary. Family History: Unchanged from Admission Social History: Unchanged from Admission Past Medical History: Unchanged from Admission Objective Active Medications: Acetaminophen (Tylenol Tab*) 650 mg PO Q4H PRN FEVER/PAIN Albuterol (Ventolin 2.5 Mg/3 Ml Neb.Arline*) 2.5 mg INH Q2H PRN SOB/WHEEZING Albuterol/Ipratropium (Duoneb (Albuterol 2.5 Mg/Ipratropium 0.5 Mg)) 1 neb INH Q4H PRN SOB/WHEEZING Amlodipine Besylate (Norvasc Tab*) 10 mg PO DAILY [facility] Aspirin (Aspirin Ec Tab*) 81 mg PO DAILY [facility] Atorvastatin Calcium (Lipitor*) 10 mg PO BEDTIME [facility] Calcium Carbonate (Calcium Carbonate Tab*) 1,250 mg PO BID [facility] Fluoxetine HCl (Prozac Cap*) 20 mg PO QAM [facility] Gabapentin (Neurontin Cap(*)) 300 mg PO 0900,1200 [facility] Gabapentin (Neurontin Cap(*)) 600 mg PO BEDTIME [facility] Heparin Sodium (Porcine) (Heparin Vial(*)) 5,000 units SUBCUT Q8HR [facility] Azithromycin 500 mg/ Sodium (Chloride) 250 mls @ 250 mls/hr IVPB Q24H [facility] Ceftriaxone Sodium 1 gm/ (Sodium Chloride) 50 mls @ 200 mls/hr IVPB Q24HR [facility] Lorazepam (Ativan Tab(*)) 0.5 mg PO BEDTIME [facility] Mometasone Furoate/Formoterol Fumar (Dulera 200/5 Mdi*) 2 puff INH BID [facility] Multivitamins/Minerals (Theragran/Minerals Tab*) 1 tab PO QAM [facility] Nicotine (Nicotine Inhaler*) 10 mg INH Q2H PRN CRAVING Nicotine (Nicotine Patch 14 Mg/24 Hr*) 1 patch TRANSDERM DAILY [facility] Perphenazine (Trilafon Tab*) 8 mg PO BEDTIME [facility]; Protocol Prednisone (Deltasone Tab*) 50 mg PO DAILY [facility] Quetiapine Fumarate (Seroquel Tab*) 100 mg PO BID [facility] Vital Signs - 8 hr 09/01/18 09/01/18 09/01/18 07:47 07:58 08:00 Temperature 99.0 F Pulse Rate 85 81 Respiratory 19 16 16 Rate Blood Pressure 184/130 (mmHg) O2 Sat by Pulse 88 92 Oximetry 09/01/18 09/01/18 09/01/18 08:03 09:06 12:47 Temperature Pulse Rate 88 Respiratory 16 18 Rate Blood Pressure 150/61 (mmHg) O2 Sat by Pulse 91 Oximetry Oxygen Devices in Use Now: Nasal Cannula - 1L Appearance: Elderly female sitting in bed in NAD Eyes: No Scleral Icterus Ears/Nose/Mouth/Throat: Mucous Membranes Moist Neck: NL Appearance and Movements; NL JVP, Trachea Midline Respiratory: Symmetrical Chest Expansion and Respiratory Effort, Clear to Auscultation - Diminished Cardiovascular: NL Sounds; No Murmurs; No JVD, RRR Abdominal: NL Sounds; No Tenderness; No Distention Extremities: No Edema Skin: No Rash or Ulcers Neurological: Alert and Oriented x 3, NL Gait Lines/Tubes/Other Access: Clean, Dry and Intact Peripheral IV Nutrition: Taking PO's Result Diagrams: 09/01/18 04:54 09/01/18 04:54 Assess/Plan/Problems-Billing Assessment: Ms. Leblanc is a 72 yo F with PMH of CVA, HTN, HLD, anxiety, depression, and COPD; who presented to the ED with c/o fever, cough, and malaise and was found to have sepsis and a COPD exacerbation secondary to community-acquired pneumonia. - Patient Problems (1) Community acquired pneumonia Code(s): J18.9 - PNEUMONIA, UNSPECIFIED ORGANISM Comment: - Still requiring 1L NC at rest - Negative legionella and strep pneumo urine antigens; influenza negative; sputum culture growing normal kirill - CTA shows right perihilar consolidation and interstitial edema, but no PE - Continue azithromycin, ceftriaxone (2) COPD exacerbation Code(s): J44.1 - CHRONIC OBSTRUCTIVE PULMONARY DISEASE W (ACUTE) EXACERBATION Comment: - Secondary to pneumonia - Not open to smoking cessation, but using nicotine replacement while hospitalized - Continue nebs, prednisone, Dulera (3) Sepsis Comment: - Resolved - Secondary to pneumonia - Met sepsis criteria with leukocytosis, tachycardia, tachypnea, fever; met qSOFA criteria with tachypnea - Appropriate fluid bolus given on arrival - Plan as above (4) Acute electrocardiogram changes Code(s): R94.31 - ABNORMAL ELECTROCARDIOGRAM [ECG] [EKG] Comment: - On admission ST depression and biphasic T waves noted; EKG this morning shows normal T waves and very minimal ST depression in V4 and V5, improved from yesterday - No chest pain and negative trops x3 - Echo shows EF 55-60%, normal LV systolic function, moderate pHTN - Suspect this was secondary to demand ischemia and hypoxia (5) Asymptomatic bacteriuria Code(s): R82.71 - BACTERIURIA Comment: - No c/o dysuria, frequency, suprapubic pain - Urine culture grew 50-75k colonies of klebsiella pneumoniae, likely colonization - Will hold off on antibiotics at this time as long as she remains asymptomatic (6) Hypertension Code(s): I10 - ESSENTIAL (PRIMARY) HYPERTENSION Comment: - Hypertensive, SBP 140-150s - Continue amlodipine (increased from home dose) (7) Hyperlipidemia Code(s): E78.5 - HYPERLIPIDEMIA, UNSPECIFIED Comment: - Continue atorvastatin (8) History of CVA (cerebrovascular accident) Code(s): Z86.73 - PRSNL HX OF TIA (TIA), AND CEREB INFRC W/O RESID DEFICITS Comment: - No residual deficits (9) Anxiety and depression Code(s): F41.8 - OTHER SPECIFIED ANXIETY DISORDERS Comment: - Continue fluoxetine, gabapentin, seroquel, perphenazine (10) DVT prophylaxis Comment: - Heparin SQ (11) Full code status Code(s): Z78.9 - OTHER SPECIFIED HEALTH STATUS Comment: Status and Disposition: Inpatient for COPD exacerbation and pneumonia requiring oxygen and IV antibiotics. Anticipate d/c home when medically stable, possibly tomorrow if she is able to be weaned off oxygen. Attending: Ayde Galarza
[2018-09-01] MEDS: hydrOXYzine HCL TAB* 10 MG PO PRN ×2 (15:50→22:37)
[2018-09-01] MEDS: Perphenazine TAB* 2 MG PO SCH (20:23)
[2018-09-01] MEDS: LORazepam TAB(*) 0.5 MG PO SCH (20:23)
[2018-09-01] MEDS: Atorvastatin* 10 MG TAB PO SCH (20:24)
[2018-09-01] MEDS: Nicotine Patch Removal NOTE FOLLOW UP SCH (20:25)
[2018-09-02] MEDS: Nicotine Inhaler* 10 MG AMP INH PRN ×6 (07:08→19:35)
[2018-09-02] MEDS: hydrOXYzine HCL TAB* 10 MG PO PRN ×3 (07:08→19:32)
[2018-09-02] MEDS: Heparin VIAL(*) 5000 UNITS/ML VIAL (FIVE THOUSAND) SUBCUT SCH ×3 (07:09→21:17)
[2018-09-02] MEDS: predniSONE TAB* 50 MG PO SCH (08:32)
[2018-09-02] MEDS: cefTRIAXone(*) 1 GM in NS 0.9% 50 ML* 50 ML IVPB SCH (08:32)
[2018-09-02] MEDS: Calcium Carbonate TAB* 1250 MG (CALCIUM 500 MG) PO SCH ×2 (08:33→21:17)
[2018-09-02] MEDS: Multivitamins/Minerals TAB PO SCH (08:33)
[2018-09-02] MEDS: FLUoxetine CAP* 20 MG PO SCH (08:33)
[2018-09-02] MEDS: Gabapentin CAP(*) 300 MG PO SCH ×3 (08:33→21:16)
[2018-09-02] MEDS: Aspirin EC TAB* 81 MG TAB.EC PO SCH (08:33)
[2018-09-02] MEDS: QUEtiapine TAB* 100 MG PO SCH ×2 (08:33→21:16)
[2018-09-02] MEDS: Azithromycin TAB* 250 MG PO SCH (08:33)
[2018-09-02] MEDS: amLODIPine TAB* 5 MG PO SCH (08:33)
[2018-09-02] MEDS: Nicotine PATCH 14 MG/24 HR* PATCH TRANSDERM SCH (08:37)
[2018-09-02] MEDS: Mometasone/Formoter 200/5 MDI INH SCH ×2 (08:53→20:50)
--- NOTE | 2018-09-02 11:47 | PN ---
Subjective Date of Service: 09/02/18 Interval History: Sitting in bed on assessment. Patient is slightly tearful reporting she is thinking about her boyfriend who recently passed and her ex who passed in March. Denies cp, sob, palpitations, cough, nausea, vomiting, diarrhea, weakness, suicidal ideation Family History: Unchanged from Admission Social History: Unchanged from Admission Past Medical History: Unchanged from Admission Objective Active Medications: Acetaminophen (Tylenol Tab*) 650 mg PO Q4H PRN PRN Reason: FEVER/PAIN Albuterol (Ventolin 2.5 Mg/3 Ml Neb.Arline*) 2.5 mg INH Q2H PRN PRN Reason: SOB/WHEEZING Albuterol/Ipratropium (Duoneb (Albuterol 2.5 Mg/Ipratropium 0.5 Mg)) 1 neb INH Q4H PRN PRN Reason: SOB/WHEEZING Amlodipine Besylate (Norvasc Tab*) 10 mg PO DAILY [facility] Last Admin: 09/02/18 08:33 Dose: 10 mg Aspirin (Aspirin Ec Tab*) 81 mg PO DAILY [facility] Last Admin: 09/02/18 08:33 Dose: 81 mg Atorvastatin Calcium (Lipitor*) 10 mg PO BEDTIME [facility] Last Admin: 09/01/18 20:24 Dose: 10 mg Azithromycin (Zithromax Tab*) 500 mg PO DAILY [facility] Last Admin: 09/02/18 08:33 Dose: 500 mg Calcium Carbonate (Calcium Carbonate Tab*) 1,250 mg PO BID [facility] Last Admin: 09/02/18 08:33 Dose: 1,250 mg Fluoxetine HCl (Prozac Cap*) 20 mg PO QAM [facility] Last Admin: 09/02/18 08:33 Dose: 20 mg Gabapentin (Neurontin Cap(*)) 300 mg PO 0900,1200 [facility] Last Admin: 09/02/18 08:33 Dose: 300 mg Gabapentin (Neurontin Cap(*)) 600 mg PO BEDTIME [facility] Last Admin: 09/01/18 20:24 Dose: 600 mg Heparin Sodium (Porcine) (Heparin Vial(*)) 5,000 units SUBCUT Q8HR [facility] Last Admin: 09/02/18 07:09 Dose: 5,000 units Hydroxyzine HCl (Atarax Tab*) 10 mg PO Q6H PRN PRN Reason: ANXIETY Last Admin: 09/02/18 07:08 Dose: 10 mg Ceftriaxone Sodium 1 gm/ (Sodium Chloride) 50 mls @ 200 mls/hr IVPB Q24HR [facility] Last Admin: 09/02/18 08:32 Dose: 200 mls/hr Lorazepam (Ativan Tab(*)) 0.5 mg PO BEDTIME [facility] Last Admin: 09/01/18 20:23 Dose: 0.5 mg Mometasone Furoate/Formoterol Fumar (Dulera 200/5 Mdi*) 2 puff INH BID [facility] Last Admin: 09/02/18 08:53 Dose: 2 puff Multivitamins/Minerals (Theragran/Minerals Tab*) 1 tab PO QAM [facility] Last Admin: 09/02/18 08:33 Dose: 1 tab Nicotine (Nicotine Inhaler*) 10 mg INH Q2H PRN PRN Reason: CRAVING Last Admin: 09/02/18 09:46 Dose: 10 mg Nicotine (Nicotine Patch 14 Mg/24 Hr*) 1 patch TRANSDERM DAILY [facility] Last Admin: 09/02/18 08:37 Dose: 1 patch Perphenazine (Trilafon Tab*) 8 mg PO BEDTIME [facility]; Protocol Last Admin: 09/01/18 20:23 Dose: 8 mg Pharmacy Profile Note (Nicotine Patch Removal Note*) 1 note FOLLOW UP 2100 [facility] Last Admin: 09/01/18 20:25 Dose: 1 note Prednisone (Deltasone Tab*) 50 mg PO DAILY [facility] Last Admin: 09/02/18 08:32 Dose: 50 mg Quetiapine Fumarate (Seroquel Tab*) 100 mg PO BID [facility] Last Admin: 09/02/18 08:33 Dose: 100 mg Vital Signs - 8 hr 09/02/18 09/02/18 09/02/18 03:54 04:10 07:08 Temperature Pulse Rate 78 Respiratory 16 24 20 Rate Blood Pressure 159/67 (mmHg) O2 Sat by Pulse 89 Oximetry 09/02/18 09/02/18 09/02/18 07:31 08:33 08:54 Temperature 97.9 F Pulse Rate 78 77 Respiratory 18 22 18 Rate Blood Pressure 162/70 (mmHg) O2 Sat by Pulse 94 94 Oximetry 09/02/18 11:24 Temperature 97.9 F Pulse Rate 82 Respiratory 18 Rate Blood Pressure 134/59 (mmHg) O2 Sat by Pulse 90 Oximetry Oxygen Devices in Use Now: Nasal Cannula Appearance: Comfortable, NAD Eyes: No Scleral Icterus Ears/Nose/Mouth/Throat: Clear Oropharnyx, Mucous Membranes Moist Neck: NL Appearance and Movements; NL JVP Respiratory: Symmetrical Chest Expansion and Respiratory Effort, Clear to Auscultation Cardiovascular: NL Sounds; No Murmurs; No JVD, RRR, No Edema Abdominal: NL Sounds; No Tenderness; No Distention Lymphatic: No Cervical Adenopathy Extremities: No Edema Skin: No Rash or Ulcers Neurological: Alert and Oriented x 3 Nutrition: Taking PO's Result Diagrams: 09/01/18 04:54 09/01/18 04:54 Microbiology and Other Data: Microbiology 08/29/18 09:20 Aerobic Blood Culture - Preliminary Blood Venous No Growth Day 4 Anaerobic Blood Culture - Preliminary No Growth Day 4 08/29/18 09:20 Aerobic Blood Culture - Preliminary Blood Venous No Growth Day 4 Anaerobic Blood Culture - Preliminary No Growth Day 4 08/30/18 08:41 Gram Stain - Final Sputum Sputum Culture - Final Normal Kirill 08/29/18 10:24 Urine Culture - Final Urine Klebsiella Pneumoniae 08/29/18 14:22 Legionella Urinary Antigen - Final Urine Negative Legionella Antigen Streptococcus pneumoniae Ag Screen - Final Negative S. pneumo Antigen 08/29/18 09:46 Influenza Types A,B Antigen - Final Nasal Specimen received for Influenza A/B Molecular testing Assess/Plan/Problems-Billing Assessment: Ms. Leblanc is a 72 yo F with PMH of CVA, HTN, HLD, anxiety, depression, and COPD; who presented to the ED with c/o fever, cough, and malaise and was found to have sepsis and a COPD exacerbation secondary to community-acquired pneumonia. - Patient Problems (1) COPD exacerbation Comment: - Secondary to pneumonia - Not open to smoking cessation, but using nicotine replacement while hospitalized - Continue nebs, prednisone, Dulera - Attempted to wean oxygen last night, but per nurse reports oxygen satuation decrease to high 80s and O2 replaced (2) Community acquired pneumonia Comment: - Still requiring 1L NC at rest. As mentioned above patient noted to require O2 last night when wean attempted. Since this is occuring at night we will check nocturat study as she may only require O2 at night - Negative legionella and strep pneumo urine antigens; influenza negative; sputum culture growing normal kirill - CTA shows right perihilar consolidation and interstitial edema, but no PE - Continue azithromycin, ceftriaxone (3) Hypoxia Comment: - Patient continues to require Oxygen for maintain O2 Saturation. - As mentioned above, noturnal destat study ordered (4) Acute electrocardiogram changes Comment: - On admission ST depression and biphasic T waves noted; Repeat EKG revealed normal T waves and very minimal ST depression in V4 and V5, improved from admission - No chest pain and negative trops x3 - Echo shows EF 55-60%, normal LV systolic function, moderate pHTN - Suspect this was secondary to demand ischemia and hypoxia (5) Asymptomatic bacteriuria Comment: - No c/o dysuria, frequency, suprapubic pain - Urine culture grew 50-75k colonies of klebsiella pneumoniae, likely colonization - Will hold off on antibiotics at this time as long as she remains asymptomatic (6) History of CVA (cerebrovascular accident) Comment: - No residual deficits (7) Sepsis Comment: - Resolved - Secondary to pneumonia - Met sepsis criteria with leukocytosis, tachycardia, tachypnea, fever; met qSOFA criteria with tachypnea - Appropriate fluid bolus given on arrival - Plan as above (8) Hypertension Comment: - Hypertensive, SBP 140-150s - Continue amlodipine (increased from home dose) (9) Anxiety and depression Comment: - Continue fluoxetine, gabapentin, seroquel, perphenazine - Has Ativan at bedtime, but required additional dose this afternoon due to anxiety (10) Tobacco abuse Comment: - Continue nicotine inhaler. - Discussed smoking cessation and has no desire to quit (11) DVT prophylaxis Comment: - Heparin SQ (12) Full code status Comment: Status and Disposition: Inpatient for COPD exacerbation and pneumonia requiring oxygen and IV antibiotics. Anticipate d/c home when medically stable, possibly tomorrow if she is able to be weaned off oxygen. Attending: Norma Thomas
[2018-09-02] MEDS ORDERED: LORazepam TAB(*) 0.5 MG PO ONE (14:37)
[2018-09-02] MEDS: LORazepam TAB(*) 0.5 MG PO SCH (21:15)
[2018-09-02] MEDS: Atorvastatin* 10 MG TAB PO SCH (21:16)
[2018-09-02] MEDS: Nicotine Patch Removal NOTE FOLLOW UP SCH (21:17)
[2018-09-02] MEDS: Perphenazine TAB* 2 MG PO SCH (21:17)
[2018-09-03] MEDS: Heparin VIAL(*) 5000 UNITS/ML VIAL (FIVE THOUSAND) SUBCUT SCH (06:18)
[2018-09-03 06:34] LABS: Hematocrit 37 % (35-47); Hemoglobin 12.7 g/dl (12.0-16.0); Mean Corpuscular HGB Conc 34 g/dl (31-36); Mean Corpuscular Hemoglobin 31 pg (27-31); Mean Corpuscular Volume 91 fL (80-97); Mean Platelet Volume 8.4 fL (7.4-10.4); Platelet Count 224 10^3/ul (150-450); Red Blood Count 4.09 10^6/ul (4.00-5.40); Red Cell Distribution Width 13 % (10.5-15); White Blood Count 8.7 10^3/ul (3.5-10.8)
[2018-09-03 06:52] LABS: BUN/Creatinine Ratio 24.4 (8-20); Calcium 9.1 mg/dL (8.6-10.3); EGFR African American 88.3 (>60); Potassium 3.1 mmol/L (3.5-5.0)
[2018-09-03 07:01] LABS: Immature Granulocytes 2 % (0-9); Lymphocytes % 46 %; Metamyelocytes % 1 % (0-2); Monocytes % 3 %; Myelocytes % 1 % (0-1); Neutrophil % 45 %; Variant Lymph % 4 % (0-6)
[2018-09-03 07:02] LABS: Polychromasia 1+
[2018-09-03 07:03] LABS: ABS Neutrophils 4.09 10^3/ul (1.5-7.7)
[2018-09-03] MEDS ORDERED: Mouth Piece, Nicotine* 1 EACH CARTRIDGE ONE ×2 (07:15→07:31)
[2018-09-03] MEDS: hydrOXYzine HCL TAB* 10 MG PO PRN ×2 (07:23→13:51)
[2018-09-03] MEDS: Aspirin EC TAB* 81 MG TAB.EC PO SCH (07:24)
[2018-09-03] MEDS: Nicotine Inhaler* 10 MG AMP INH PRN ×2 (07:24→11:29)
[2018-09-03] MEDS: Azithromycin TAB* 250 MG PO SCH (07:24)
[2018-09-03] MEDS: Calcium Carbonate TAB* 1250 MG (CALCIUM 500 MG) PO SCH (07:24)
[2018-09-03] MEDS: FLUoxetine CAP* 20 MG PO SCH (07:24)
[2018-09-03] MEDS: predniSONE TAB* 50 MG PO SCH (07:25)
[2018-09-03] MEDS: Gabapentin CAP(*) 300 MG PO SCH ×2 (07:25→11:29)
[2018-09-03] MEDS: amLODIPine TAB* 5 MG PO SCH (07:25)
[2018-09-03] MEDS: Multivitamins/Minerals TAB PO SCH (07:25)
[2018-09-03] MEDS: QUEtiapine TAB* 100 MG PO SCH (07:26)
[2018-09-03] MEDS: Nicotine PATCH 14 MG/24 HR* PATCH TRANSDERM SCH (07:26)
[2018-09-03] MEDS: Mometasone/Formoter 200/5 MDI INH SCH (07:27)
[2018-09-03] MEDS: cefTRIAXone(*) 1 GM in NS 0.9% 50 ML* 50 ML IVPB SCH (10:06)
[2018-09-03 12:46] VITALS: BP 128/58
[2018-09-03] MEDS ORDERED: Docusate CAP* 100 MG PO PRN (12:48)
--- NOTE | 2018-09-03 23:50 | DS ---
AMENDED REPORT NOW INCLUDES DESIGNATED COSIGNER CC: Dr. Joseph * DISCHARGE SUMMARY: DATE OF ADMISSION: 08/29/18 DATE OF DISCHARGE: 09/03/18 PRIMARY CARE PROVIDER: Dr. Joseph. ATTENDING PHYSICIAN ON ADMISSION: Dr. Vega Galan. MY ATTENDING TODAY: Dr. Norma Thomas * (report dictated by Mei Hauser NP). PRIMARY DIAGNOSES: 1. Chronic obstructive pulmonary disease exacerbation. 2. Community-acquired pneumonia. 3. Sepsis. 4. Nocturnal hypoxia. SECONDARY DIAGNOSES: 1. Asymptomatic bacteriuria. 2. History of cerebrovascular accident. 3. Hypertension. 4. Anxiety and depression. 5. Tobacco abuse. CONSULTATIONS WHILE IN THE HOSPITAL: No consultations. PROCEDURES WHILE IN THE HOSPITAL: No procedures. STUDIES WHILE IN THE HOSPITAL: 1. Chest x-ray: Impression: Mild pulmonary interstitial edema. 2. Chest/thorax CTA: Impression: No pulmonary artery filling defect to suggest pulmonary embolism. Pulmonary interstitial edema. Right perihilar consolidation. Stable mediastinal lymphadenopathy. Atherosclerosis. 3. EKG: Impression: Slight tachycardia. 4. Transthoracic echo: Impression: Global left ventricular wall motion and contractility are within normal limits. Normal left ventricular systolic function. Estimated ejection fraction is 55% to 60%. Right ventricular global systolic function is normal. No evidence of aortic stenosis. Trace mitral regurgitation. Mild tricuspid regurgitation. Evidence of moderate pulmonary hypertension. Pericardium appears normal. DISCHARGE HOME MEDICATIONS: [place] Medications: 1. Prednisone 10 mg tabs, 40 mg x2 days, 30 x2 days, 20 x2 days, 10 x2 days. 2. Augmentin 875 mg p.o. b.i.d. x5 days. Changed Home Medications: 1. Amlodipine 10 mg p.o. daily. This was increased from 5 mg p.o. daily. Continued Home Medications: 1. Simvastatin 20 mg p.o. at bedtime. 2. Tylenol 650 mg p.o. every 8 hours p.r.n. 3. Gabapentin 600 mg at bedtime. 4. Gabapentin 300 mg in the morning. 5. Gabapentin 300 mg at noontime. 6. Prozac 20 mg p.o. q.a.m. 7. Motrin 800 mg p.o. at bedtime. 8. Calcium carbonate 600 mg p.o. b.i.d. 9. Aspirin 81 mg daily. 10. Ventolin 2 puffs inhaler every 4 hours as needed. 11. Seroquel 100 mg p.o. b.i.d. 12. Perphenazine 8 mg p.o. at bedtime. 13. Multivitamin 1 tablet daily. 14. Ativan 0.5 mg at bedtime. Discontinued Home Medications: No home medications were discontinued. HISTORY OF PRESENT ILLNESS/HOSPITAL COURSE: Ms. Leblanc is a 72-year-old female with a past medical history significant for COPD, hyperlipidemia, psychosis, hypertension; who presented to the emergency department on 08/29/18 with complaints of fever, cough, not feeling well. Please see history and physical dictated by Elie Michael for complete summary of events leading up to this hospitalization, but in short the patient presented with progressive cough and not feeling well in addition to a report of fever. While in the emergency room, patient was found to be in a COPD exacerbation with pneumonia and evidence of sepsis, but not septic shock or severe sepsis. She had a white count of 12.8. In addition, she was febrile on admission and had a heart rate greater than 90 and respirations over 20. Patient received appropriate fluid resuscitation, antibiotics were started, and patient was pancultured. Patient was admitted to telemetry and had aggressive nebulizers with pulmonary toileting. It should also be noted that patient did have EKG changes on admission, but had negative troponins and an echo as mentioned above. In addition, repeat EKGs during hospital stay had improved. We suspect these EKG changes were secondary to demand ischemia and hypoxia. In addition, as part of her sepsis workup, she was pancultured, a urine culture was obtained, and she grew out 50K to 75K of Klebsiella pneumoniae. Patient was asymptomatic; therefore, it is suspected that patient could be colonized; therefore, she was not treated for UTI. Patient improved with regular nebulizer treatments, steroids, and antibiotics. Patient did require supplemental oxygen during her stay here during the day, but was successfully weaned during daytime hours. Unfortunately, it was found that patient does have nocturnal hypoxia during an overnight O2 study. We suspect this was due to her advanced COPD and continued smoking. Therefore, patient is agreeable to go home on oxygen at night. REVIEW OF SYSTEMS: Patient reports shortness of breath has improved and she is no longer coughing. A 14-point review of systems was performed and all others were negative. PHYSICAL EXAMINATION: Vital signs as follows: Temp 98.9, HR 82, RR 20, O2 saturation 92% on room air, BP 128/58. General: Ms. Leblanc is a 72-year-old well-developed female. She is sitting in bed, in no acute distress. Appears stated age. HEENT: PERRLA. EOMs intact. Oral mucosa is moist without lesion. Posterior pharynx is free from erythema, exudate, lesions. Neck: Full range of motion. Supple. No lymphadenopathy. Respiratory: Symmetrical chest expansion. No accessory muscle use. Sparse/sporadic wheeze heard. Otherwise, lungs are clear and patient has good aeration. No rhonchi or rubs. CV: Regular rate and rhythm. S1/S2 present. No murmurs, rubs, or gallops. No JVD. Extremities: Skin is warm and smooth. No edema. No clubbing or cyanosis. Pedal pulses 2+ bilaterally. Musculoskeletal: Full range of motion. No pain or deformities. Abdomen: Soft, nontender to palpation. Bowel sounds x4. Neuro: Awake, alert , oriented x4. No focal deficits. Skin: Grossly intact without lesions. DISPOSITION: Patient is stable for discharge today. DISCHARGE PLAN/FOLLOWUP: 1. COPD exacerbation: Patient should continue inhalers at home as same. I have discussed smoking cessation at length with patient, but she declines. Patient should use oxygen at night and has been educated on this. I have also discussed not smoking while wearing oxygen or near oxygen. Patient states understanding. 2. Community-acquired pneumonia: Patient is improving. Should continue antibiotics as prescribed. Should continue prednisone taper as prescribed. 3. Sepsis: This has resolved. 4. Asymptomatic bacteriuria: Patient to follow up with primary care provider if she starts to have symptoms of dysuria, frequency, suprapubic pain. 5. Hypertension: Continue medications as same. It should be noted that patient's amlodipine was increased from 5 mg to 10 mg daily. She should continue this dose and follow up with her primary care physician. 6. Anxiety and depression: Patient should continue fluoxetine, gabapentin, Seroquel, perphenazine, and Ativan at bedtime. 7. Tobacco abuse: Discussed smoking cessation at length, but she has no desire to quit. 8. Mild hypokalemia: In reviewing patient's chart is was noted potassium today was 3.1. Patient is not on any medications that would cause or worsen hypokalemia. Patient was called and updated on lab result. She was encouraged to follow up with her primary care early next week for repeat BMP. Patient stated understanding and agreed to plan. TIME SPENT: Approximately 35 minutes were spent on this discharge, greater than half that time was spent [id number] with the patient discussing discharge plans and assessment. This case has been reviewed with my attending, Dr. Thomas, who agrees with my plan. MEI HAUSER, [employer] P[employer]NCING MACHINE OPERATOR [id number]/CPS #: [id number]
== END 2018-09-03 14:10 | disposition home or self-care (01) | DRG 871 ==
LOC: ED 09:40 → MEDTELE 13:30 → MED 09-03 07:11
PROVIDERS: ADMIT Internal Medicine; ATTEND Hospitalist
DX: A41.9 Sepsis, unspecified organism (principal); J18.9 Pneumonia, unspecified organism; J44.1 Chronic obstructive pulmonary disease with (acute) exacerbation; J44.0 Chronic obstructive pulmonary disease with (acute) lower respiratory infection; I24.8 Other forms of acute ischemic heart disease; R09.02 Hypoxemia; R82.71 Bacteriuria; I10 Essential (primary) hypertension; F32.9 Major depressive disorder, single episode, unspecified; F41.9 Anxiety disorder, unspecified; I25.10 Atherosclerotic heart disease of native coronary artery without angina pectoris; E87.6 Hypokalemia; E78.5 Hyperlipidemia, unspecified; F29 Unspecified psychosis not due to a substance or known physiological condition; I08.1 Rheumatic disorders of both mitral and tricuspid valves; I27.20 Pulmonary hypertension, unspecified; F17.210 Nicotine dependence, cigarettes, uncomplicated; M19.90 Unspecified osteoarthritis, unspecified site; Z99.81 Dependence on supplemental oxygen; Z79.82 Long term (current) use of aspirin; Z86.73 Personal history of transient ischemic attack (TIA), and cerebral infarction without residual deficits; Z98.42 Cataract extraction status, left eye; Z98.41 Cataract extraction status, right eye; Z88.5 Allergy status to narcotic agent; Z88.8 Allergy status to other drugs, medicaments and biological substances; Z80.1 Family history of malignant neoplasm of trachea, bronchus and lung; Z82.49 Family history of ischemic heart disease and other diseases of the circulatory system
CPT/HCPCS: 36415; 71045; 71275; 80048; 80053; 81003; 81015; 83605; 83880; 84484; 85025; 85610; 85652; 85730; 86140; 87040; 87070; 87077; 87086; 87186; 87205; 87899; 93005; 93306; 94640; 94762; 99284; A9270-GY; G8978-GP-CI; G8979-GP-CI; G8980-GP-CI; G8987-GO-CI; G8988-GO-CI; G8989-GO-CI; J0456; J0696; J1644; J1940; J7512; Q9967

== ENCOUNTER 2022-01-30 12:26 | Inpatient (IN) ==
[2022-01-30] MEDS ORDERED: Al Hydrox/Mg Hydrox/Simet LIQ 30 ML UDC PO PRN (15:46)
[2022-01-30] MEDS ORDERED: Albuterol HFA INHALER 8 gm MDI INH PRN (15:51)
[2022-01-30] MEDS: Nicotine Lozenge mini 4 MG LOZNG.MINI MT PRN (20:32)
[2022-01-31] MEDS: Nicotine PATCH 21 MG/24 HR PATCH TRANSDERM SCH (08:05)
[2022-01-31] MEDS: Polyethylene Glycol 3350 17 GM PACKET PO SCH (08:05)
[2022-01-31] MEDS: Aspirin EC 81 mg TAB.EC (enteric coated) PO SCH (08:06)
[2022-01-31] MEDS: Nicotine Lozenge mini 4 MG LOZNG.MINI MT PRN (08:06)
[2022-02-01] MEDS: Aspirin EC 81 mg TAB.EC (enteric coated) PO SCH (08:19)
[2022-02-01] MEDS: Polyethylene Glycol 3350 17 GM PACKET PO SCH (08:20)
[2022-02-01] MEDS: Nicotine PATCH 21 MG/24 HR PATCH TRANSDERM SCH (08:20)
[2022-02-02] MEDS: Polyethylene Glycol 3350 17 GM PACKET PO SCH (08:13)
[2022-02-02] MEDS: Nicotine PATCH 21 MG/24 HR PATCH TRANSDERM SCH (08:14)
[2022-02-02] MEDS: Aspirin EC 81 mg TAB.EC (enteric coated) PO SCH (08:15)
[2022-02-03] MEDS: Nicotine PATCH 21 MG/24 HR PATCH TRANSDERM SCH (08:26)
[2022-02-03] MEDS: Polyethylene Glycol 3350 17 GM PACKET PO SCH (08:26)
[2022-02-03] MEDS: Aspirin EC 81 mg TAB.EC (enteric coated) PO SCH (08:27)
[2022-02-04] MEDS: Polyethylene Glycol 3350 17 GM PACKET PO SCH (08:10)
[2022-02-04] MEDS: Aspirin EC 81 mg TAB.EC (enteric coated) PO SCH (08:10)
[2022-02-04] MEDS: Nicotine PATCH 21 MG/24 HR PATCH TRANSDERM SCH (08:10)
[2022-02-04] MEDS: Nicotine Lozenge mini 4 MG LOZNG.MINI MT PRN (17:24)
[2022-02-05] MEDS: Nicotine PATCH 21 MG/24 HR PATCH TRANSDERM SCH (09:50)
[2022-02-05] MEDS: Polyethylene Glycol 3350 17 GM PACKET PO SCH (09:50)
[2022-02-05] MEDS: Aspirin EC 81 mg TAB.EC (enteric coated) PO SCH (09:52)
[2022-02-05 12:37] LABS: Rapid COVID-19 Molecular Undetected (Undetected)
[2022-02-06 07:28] VITALS: BP 152/64
[2022-02-06] MEDS: Aspirin EC 81 mg TAB.EC (enteric coated) PO SCH (09:31)
[2022-02-06] MEDS: Nicotine PATCH 21 MG/24 HR PATCH TRANSDERM SCH (09:32)
[2022-02-06] MEDS: Polyethylene Glycol 3350 17 GM PACKET PO SCH (09:32)
== END 2022-02-06 14:00 | DRG 885 ==
LOC: MED 12:30 → SUATTDRO 12:30
PROVIDERS: ADMIT Internal Medicine; ATTEND Hospitalist